=== PATIENT | male | born 1960 | race Caucasian/White ===

== ENCOUNTER 2016-07-25 12:28 | Emergency (ER) | payer MEDICARE, BC, MEDICAID ==
[2016-07-25 13:25] VITALS: BP 116/65
--- NOTE | 2016-07-25 13:36 | UC ---
Lower Extremity/Ankle HPI - HPI Summary HPI Summary: left foot swollen, bruising x 1 day no known injury pt. is quadriplegic - History of Current Complaint Chief Complaint: UCLowerExtremity Stated Complaint: LEFT FOOT COMPLAINT Time Seen by Provider: 07/25/16 13:11 Hx Obtained From: Family/Anesthesiology Medical Doctor Hx From Patient Unobtainable Due To: Other - pt. is non-verbal Onset/Duration: Gradual Onset, Lasting Days - 1, Still Present Severity Initially: Moderate Severity Currently: Moderate Aggravating Factor(s): Nothing Able to Bear Weight: No - quadriplegic - Allergies/Home Medications Allergies/Adverse Reactions: Allergies Allergy/AdvReac Type Severity Reaction Status Date / Time No Known Allergies Allergy Verified 07/25/16 13:09 Home Medications: Home Medications Phenytoin CAP(*) [Dilantin CAP(*)] 1 tab DAILY 07/25/16 [History Confirmed 07/25] PMH/Surg Hx/FS Hx/Imm Hx Endocrine History Of: Reports: Thyroid Disease - hypothyroid Denies: Diabetes Cardiovascular History Of: Denies: Hypertension, Congestive Heart Failure Respiratory History Of: Reports: Bronchitis - recent pneumonia GI/ History Of: Denies: Renal Disease Neurological History Of: Reports: Seizures - Surgical History Surgical History: Unable to Obtain/Confirm - Family History Known Family History: Negative: Hypertension, Diabetes - Social History Alcohol Use: None Substance Use Type: None Smoking Status (MU): Never Smoked Tobacco - Immunization History Most Recent Influenza Vaccination: UNK Most Recent Tetanus Shot: 11/02/15 Most Recent Pneumonia Vaccination: unk date, but has received previously per aide Review of Systems Constitutional: Negative Skin: Negative ENT: Negative All Other Systems Reviewed And Are Negative: Yes Physical Exam Triage Information Reviewed: Yes Completion Of Physical Exam Limited Due To: Other - quadriplegic , non-verbal , + CP Appearance: No Pain Distress Vital Signs: Initial Vital Signs Temp 96.2 F 07/25/16 13:09 Pulse 80 07/25/16 13:09 Resp 18 07/25/16 13:09 BP 116/65 07/25/16 13:09 Pulse Ox 99 07/25/16 13:09 Vital Signs Reviewed: Yes Eyes: Positive: Conjunctiva Clear ENT: Positive: Normal ENT inspection Neck exam: Normal Respiratory: Positive: Chest non-tender, Lungs clear, Normal breath sounds Cardiovascular: Positive: RRR, Pulses Normal Musculoskeletal: Positive: Other: - + foot: + swelling , + ecchymosis plantar surface Lower Extremity Course/Dx - Differential Dx/Diagnosis Provider Diagnoses: contusion left foot Discharge - Discharge Plan Condition: Stable Disposition: HOME Patient Education Materials: Foot Contusion (ED) Referrals: Vic Kirkland MD [Primary Care Provider] - 7 Days
--- NOTE | 2016-07-25 14:00 | RAD ---
Indication: 1 day LEFT foot swelling without known trauma. Mentally disabled wheelchair-bound. Comparison: January 02, 2013 Technique: AP, lateral, and oblique views RIGHT foot. REPORT AND IMPRESSION: Bone density is decreased throughout mildly limiting assessment for nondisplaced fracture. No cortical disruption or suspicious trabecular irregularity to suggest fracture. Negative for dislocation. Mild osteophytosis and joint space narrowing at the first metatarsal phalangeal joint. Soft tissue swelling most prominent over the dorsum of the forefoot. No conspicuous foreign body or subcutaneous emphysema.
== END 2016-07-25 14:20 | disposition home or self-care (01) ==
LOC: UCCORT 12:28
DX: S90.32XA Contusion of left foot, initial encounter (principal); X58.XXXA Exposure to other specified factors, initial encounter; Y93.9 Activity, unspecified; Y99.9 Unspecified external cause status; G82.50 Quadriplegia, unspecified; E03.9 Hypothyroidism, unspecified
CPT/HCPCS: 99212; G0463

== ENCOUNTER 2016-08-25 09:15 | Inpatient (IN) | payer MEDICARE, BC, MEDICAID ==
[2016-08-25] MEDS ORDERED: Ondansetron INJ* 2 MG/ML VIAL IV ONE (09:49)
[2016-08-25] MEDS: NS 0.9% 1000 ML* 3,000 ML IV ONE ×3 (10:01→10:03)
[2016-08-25 10:07] LABS: Hematocrit 48 % (42-52); Hemoglobin 15.8 g/dl (14.0-18.0); Mean Corpuscular HGB Conc 33 g/dl (31-36); Mean Corpuscular Hemoglobin 32 pg (27-31); Mean Corpuscular Volume 96 fL (80-94); Mean Platelet Volume 10 um3 (7.4-10.4); Red Blood Count 4.96 10^6/ul (4.0-5.4); Red Cell Distribution Width 15 % (10.5-15); White Blood Count 12.1 10^3/ul (3.5-10.8)
[2016-08-25 10:18] LABS: Add Diff/Slide Review? Slide Review Added; Comments Flag Yes
[2016-08-25 10:29] LABS: Albumin 3.3 g/dL (3.2-5.2); BUN/Creatinine Ratio 34.8 (8-20); C Reactive Protein 324.25 mg/L (< 5.00); Calcium 9.5 mg/dL (8.6-10.3); EGFR African American 86.9 (>60); EGFR Non-African American 67.6 (>60); Globulin 3.9 g/dL (2-4); Magnesium 2.5 mg/dL (1.9-2.7); Total Bilirubin 0.5 mg/dL (0.2-1.0); Total Protein 7.2 g/dL (6.4-8.9)
[2016-08-25 10:30] LABS: Potassium 4.9 mmol/L (3.5-5.0)
[2016-08-25 10:31] LABS: Troponin I 0.04 ng/mL (<0.04)
--- NOTE | 2016-08-25 10:52 | RAD ---
Indication: Vomiting and diarrhea. CT of the abdomen and pelvis was performed without oral or IV contrast administration. Coronal and sagittal reconstructed images were obtained. Lung bases demonstrate left lower lobe consolidation with left pleural effusion. Pneumonia is not totally excluded. Some atelectasis is noted in the lingula and right middle lobe as well. The heart demonstrates no pericardial effusion. Liver is normal in size. No focal lesions or intrahepatic duct dilatation is noted. The spleen is normal in size. A small amount of ascites is noted. Gallbladder demonstrates no calcified gallstones. No pericholecystic fluid or wall thickening is noted. The pancreas demonstrates no definite mass although some peripancreatic infiltration of fat is noted. The possibility of pancreatitis should be considered. No adrenal masses are noted. The kidneys demonstrate no hydronephrosis. Atherosclerotic aorta and inferior vena cava are unremarkable. The colon is filled with stool. Urinary bladder is unremarkable. The colon is filled with stool. No hernias are noted. The small bowel demonstrates moderate distention. There are collapsed loops of distal bowel noted. There is suggestion of a zone of transition in the mid abdomen just left of midline. Patient has had prior partial colectomy. No retroperitoneal adenopathy is noted. Colon is filled with stool. The urinary bladder is unremarkable. No hernias are noted. IMPRESSION: Likely left lower lobe pneumonia with left pleural effusion. Small amount of ascites is noted. Peripancreatic fluid is noted. The possibility of pancreatitis should be considered. Small bowel demonstrates moderate distention with suggestion of distal terminal ileum. There is suggestion of a transition point noted in the mid abdomen. This likely represents a small bowel obstruction.
[2016-08-25 11:03] LABS: Phenytoin 10.1 mcg/mL (10-20)
[2016-08-25] MEDS ORDERED: cefTRIAXone(*) 1 GM in NS 0.9% 50 ML* 50 ML IVPB ONE (11:04)
[2016-08-25] MEDS ORDERED: Azithromycin IV(*) 500 MG in NS 0.9% 250 ML* 250 ML IVPB ONE (11:05)
[2016-08-25 11:11] LABS: TSH (Thyroid Stimulating Horm) 3.55 mcIU/mL (0.34-5.60)
[2016-08-25] MEDS ORDERED: Acetaminophen SUPP* 650 MG SUPP PR PRN (11:26)
[2016-08-25] MEDS ORDERED: Ondansetron INJ* 2 MG/ML VIAL IV PRN (11:26)
[2016-08-25] MEDS ORDERED: cefTRIAXone(*) 1 GM ADVAN ONE (11:36)
[2016-08-25 11:44] LABS: Eosinophils % 1 % (0-6); Immature Granulocytes 16 % (0-9); Metamyelocytes % 1 % (0-2); Myelocytes % 1 % (0-1); Neutrophil % 49 % (38-83); RBC Morphology Normal (Normal)
[2016-08-25] MEDS ORDERED: LORazepam INJ* 2 MG/ML 1 ML VIAL IV PUSH ONE (11:45)
--- NOTE | 2016-08-25 11:54 | RAD ---
INDICATION: Altered mental status COMPARISON: Most recent comparison chest x-rays dated January 29, 2014. TECHNIQUE: Single AP portable view of the chest was obtained. FINDINGS: Image quality is compromised due to the relative inferiority of a portable chest x-ray. The well aerated lung volumes are hypoplastic which May simply be due to poor inspiratory effort. There is apparent elevation of the right hemidiaphragm with a air-filled loop of colon immediately beneath the diaphragm characteristic of a [place] bowel loop. There are dilated loops of air-filled small bowel measuring up to 3.8 cm in the left hemiabdomen. There is no definite free gas beneath either diaphragm. IMPRESSION: 1. Hypoplastic lung volumes may similar be the consequence of poor inspiratory effort. There is no definite acute cardiopulmonary disease on this very limited partially upright chest x-ray. 2. Air-filled loops of small bowel are dilated up to 3.8 cm in the left hemiabdomen.
[2016-08-25] MEDS ORDERED: Zosyn per Pharmacy* NOTE FOLLOW UP SCH (12:00)
--- NOTE | 2016-08-25 13:31 | ED ---
Mesfin Robert Alfonso, scribed for Abelardo Pike MD on 08/25/16 at 0954 . GI/ HPI - HPI Summary HPI Summary: Level 5 caveat due to Cerebral Palsy. This patient is a 56 year old male presenting from [facility] to [facility] for vomiting since last night. He was diagnosed with viral gastroenteritis 4 days ago, but his vomiting has been worst this morning prompting his intermediate aid to bring him to the ED. [facility] aid reports nausea. Sx aggravated and alleviated by nothing. Denies blood in vomit and melena. He has been on the BRAT diet, and has been able to hold down liquids until this morning. Development Geologist believes he vomited his medication today. The aid denies him taking abx recently or being on blood thinners. PMHx of seizures and Cerebral Palsy. NKDA. - History of Current Complaint Chief Complaint: EDNauseaVomitDiarrh Time Seen by Provider: 08/25/16 09:38 Stated Complaint: VOMITING Hx Obtained From: Family/Development Geologist - [facility] aid Hx From Patient Unobtainable Due To: Other - Cerebral Palsy Onset/Duration: Started Hours Ago - This morning, Worse Since Severity: Mild Current Severity: Mild Pain Intensity: 0 Associated Signs and Symptoms: Positive: Nausea, Vomiting, Other: - Negative blood in vomit. Negative: Black Tarry Stool Aggravating Factor(s): Nothing Alleviating Factor(s): Nothing - Allergy/Home Medications Allergies/Adverse Reactions: Allergies Allergy/AdvReac Type Severity Reaction Status Date / Time No Known Allergies Allergy Verified 07/25/16 13:09 PMH/Surg Hx/FS Hx/Imm Hx Endocrine/Hematology History: Reports: Hx Thyroid Disease - hypothyroid Denies: Hx Diabetes, Hx Systemic Lupus Erythematosus Cardiovascular History: Denies: Hx Congestive Heart Failure, Hx Hypertension GI History: Reports: Hx Gastroesophageal Reflux Disease, Other GI Disorders - anorexia, dehydration History: Denies: Hx Dialysis, Hx Renal Disease Musculoskeletal History: Denies: Hx Rheumatoid Arthritis Neurological History: Reports: Hx Developmental Delay, Hx Seizures - Cancer History Hx Chemotherapy: No Infectious Disease History: No Infectious Disease History: Denies: Hx Clostridium Difficile, Hx Hepatitis, Hx Human Immunodeficiency Virus (HIV), Hx of Known/Suspected MRSA, Hx Shingles, Hx Tuberculosis, Hx Known/ Suspected VRE, Hx Known/Suspected VRSA, History Other Infectious Disease, Traveled Outside the [place] in Last 30 Days - Family History Known Family History: Negative: Hypertension, Diabetes - Social History Lives: Intermediate - In [place] Alcohol Use: None Substance Use Type: Reports: None Smoking Status (MU): Never Smoked Tobacco Review of Systems - ROS Summary Review of Systems Summary: Level 5 caveat due to Cerebral Palsy. Positive: Vomiting, Nausea, Other - Negative blood in vomit and negative melena All Other Systems Reviewed And Are Negative: No Physical Exam - Summary Physical Exam Summary: Level 5 caveat due to Cerebral Palsy. Gen: Lethargic Skin: warm, color, dry Head: Dry oral mucosa Eyes: EOMI, JONELLE ENT: normal Neck: supple, nontender Resp: CTA, breath sounds present Cardio: Tachycardia Abd: No obvious tenderness to palpation Bowel: present Musc: Contractures in his legs Neuro: Response to voice Psych: affect/mood appropriate Triage Information Reviewed: Yes Vital Signs On Initial Exam: Initial Vitals Temp Pulse Resp BP Pulse Ox 97.3 F 125 20 80/59 94 08/25/16 09:27 08/25/16 09:27 08/25/16 09:27 08/25/16 09:27 08/25/16 09:27 Vital Signs Reviewed: Yes Diagnostics - Vital Signs Vital Signs Temp Pulse Resp BP Pulse Ox 08/25/16 09:30 97.3 F 127 20 73/58 94 08/25/16 09:27 97.3 F 125 20 80/59 94 - Laboratory Lab Results: Lab Results 08/25/16 08/25/16 08/25/16 Range/Units 09:43 09:43 09:43 WBC 12.1 H (3.5-10.8) 10^3/ul RBC 4.96 (4.0-5.4) 10^6/ul Hgb 15.8 (14.0-18.0) g/dl Hct 48 (42-52) % MCV 96 H (80-94) fL MCH 32 H (27-31) pg MCHC 33 (31-36) g/dl RDW 15 (10.5-15) % Plt Count 266 (150-450) 10^3/ul MPV 10 (7.4-10.4) um3 Immature Gran % (Auto) 16 H (0-9) % Neut % (Auto) 61.6 (38-83) % Lymph % (Auto) 9.5 L (25-47) % [place] % (Auto) 27.2 H (1-9) % Eos % (Auto) 0.5 (0-6) % Baso % (Auto) 1.2 (0-2) % Absolute Neuts (auto) 7.4 (1.5-7.7) 10^3/ul Absolute Lymphs (auto) 1.1 (1.0-4.8) 10^3/ul Absolute Monos (auto) 3.3 H (0-0.8) 10^3/ul Absolute Eos (auto) 0.1 (0-0.6) 10^3/ul Absolute Basos (auto) 0.2 (0-0.2) 10^3/ul Absolute Nucleated RBC 0.01 10^3/ul Neutrophils % 49 (38-83) % Band Neutrophils % 14 H (0-8) % Lymphocytes % 17 L (25-47) % Monocytes % 17 H (0-13) % Eosinophils % 1 (0-6) % Metamyelocytes % 1 (0-2) % Myelocytes % 1 (0-1) % Nucleated RBC % 0.1 Normal RBC Morphology Normal (Normal) INR (Anticoag Therapy) 1.31 H (0.89-1.11) APTT 31.4 (26.0-36.3) seconds Sodium 134 (133-145) mmol/L Potassium 4.9 (3.5-5.0) mmol/L Chloride 95 L (101-111) mmol/L Carbon Dioxide 26 (22-32) mmol/L Anion Gap 13 H (2-11) mmol/L BUN 39 H (6-24) mg/dL Creatinine 1.12 (0.67-1.17) mg/dL Est GFR ( Amer) 86.9 (>60) Est GFR (Non-Af Amer) 67.6 (>60) BUN/Creatinine Ratio 34.8 H (8-20) Glucose 104 H (70-100) mg/dL Lactic Acid (0.5-2.0) mmol/L Calcium 9.5 (8.6-10.3) mg/dL Magnesium 2.5 (1.9-2.7) mg/dL Total Bilirubin 0.50 (0.2-1.0) mg/dL AST 25 (13-39) U/L ALT 8 (7-52) U/L Alkaline Phosphatase 90 (34-104) U/L Total Creatine Kinase 236 H (10-223) U/L CK-MB (CK-2) 3.1 (0.6-6.3) ng/mL Troponin I 0.04 H* (<0.04) ng/mL C-Reactive Protein 324.25 H (< 5.00) mg/L B-Natriuretic Peptide ( - 100) pg/mL Total Protein 7.2 (6.4-8.9) g/dL Albumin 3.3 (3.2-5.2) g/dL Globulin 3.9 (2-4) g/dL Albumin/Globulin Ratio 0.8 L (1-3) Lipase 28 (11.0-82.0) U/L TSH 3.55 (0.34-5.60) mcIU/mL Phenytoin 10.1 (10-20) mcg/mL Valproic Acid 38.0 L (50-100) mcg/mL 08/25/16 08/25/16 Range/Units 09:43 09:43 WBC (3.5-10.8) 10^3/ul RBC (4.0-5.4) 10^6/ul Hgb (14.0-18.0) g/dl Hct (42-52) % MCV (80-94) fL MCH (27-31) pg MCHC (31-36) g/dl RDW (10.5-15) % Plt Count (150-450) 10^3/ul MPV (7.4-10.4) um3 Immature Gran % (Auto) (0-9) % Neut % (Auto) (38-83) % Lymph % (Auto) (25-47) % [place] % (Auto) (1-9) % Eos % (Auto) (0-6) % Baso % (Auto) (0-2) % Absolute Neuts (auto) (1.5-7.7) 10^3/ul Absolute Lymphs (auto) (1.0-4.8) 10^3/ul Absolute Monos (auto) (0-0.8) 10^3/ul Absolute Eos (auto) (0-0.6) 10^3/ul Absolute Basos (auto) (0-0.2) 10^3/ul Absolute Nucleated RBC 10^3/ul Neutrophils % (38-83) % Band Neutrophils % (0-8) % Lymphocytes % (25-47) % Monocytes % (0-13) % Eosinophils % (0-6) % Metamyelocytes % (0-2) % Myelocytes % (0-1) % Nucleated RBC % Normal RBC Morphology (Normal) INR (Anticoag Therapy) (0.89-1.11) APTT (26.0-36.3) seconds Sodium (133-145) mmol/L Potassium (3.5-5.0) mmol/L Chloride (101-111) mmol/L Carbon Dioxide (22-32) mmol/L Anion Gap (2-11) mmol/L BUN (6-24) mg/dL Creatinine (0.67-1.17) mg/dL Est GFR ( Amer) (>60) Est GFR (Non-Af Amer) (>60) BUN/Creatinine Ratio (8-20) Glucose (70-100) mg/dL Lactic Acid 1.2 (0.5-2.0) mmol/L Calcium (8.6-10.3) mg/dL Magnesium (1.9-2.7) mg/dL Total Bilirubin (0.2-1.0) mg/dL AST (13-39) U/L ALT (7-52) U/L Alkaline Phosphatase (34-104) U/L Total Creatine Kinase (10-223) U/L CK-MB (CK-2) (0.6-6.3) ng/mL Troponin I (<0.04) ng/mL C-Reactive Protein (< 5.00) mg/L B-Natriuretic Peptide 188 H ( - 100) pg/mL Total Protein (6.4-8.9) g/dL Albumin (3.2-5.2) g/dL Globulin (2-4) g/dL Albumin/Globulin Ratio (1-3) Lipase (11.0-82.0) U/L TSH (0.34-5.60) mcIU/mL Phenytoin (10-20) mcg/mL Valproic Acid (50-100) mcg/mL Result Diagrams: 08/25/16 09:43 08/25/16 09:43 Lab Statement: Any lab studies that have been ordered have been reviewed, and results considered in the medical decision making process. - CT CT A/P without contrast CT Interpretation: Positive (See Comments) - Likely left lower lobe pneumonia with left pleural effusion. Small amount of ascites is noted. CT Interpretation Completed By: Radiologist - EKG 1037 Cardiac Rate: Tachycardia EKG Rhythm: Sinus Tachycardia - BPM 105 ST Segment: Normal Ectopy: None GIGU Course/Dx - Course Course Of Treatment: ADMIT HOSPITALIST TO ICU STABLE. - Diagnoses Provider Diagnoses: SBO (small bowel obstruction), Pneumonia, Hypotension - Physician Notifications Discussed Care Of Patient With: Biju Quezada Time Discussed With Above Provider: 11:01 - Discussed with Dr. Quezada ( Hospitalist) who agrees to admit the patient. - Critical Care Time Critical Care Time: 30-74 min Discharge - Discharge Plan Condition: Stable Disposition: ADMITTED TO [facility] The documentation as recorded by the Mesfin michelle Alfonso accurately reflects the service I personally performed and the decisions made by me, Abelardo Pike MD.
[2016-08-25] MEDS: NS 0.9% 1000 ML* 1,000 ML IV SCH ×2 (13:55→23:43)
--- NOTE | 2016-08-25 14:11 | RAD ---
Indication: NG tube placement. Single frontal view of the chest performed at 1248 hours was reviewed. Comparison is made with previous exam dated August 25, 2016. NG tube is in the left lung in the left bronchus. Bibasilar atelectasis is noted. IMPRESSION: NG TUBE IS IN THE LEFT BRONCHUS.
--- NOTE | 2016-08-25 14:14 | HP ---
CC: Vic Kirkland MD; Florentin Alberts MD * HISTORY AND PHYSICAL: DATE OF ADMISSION: 08/25/16 PRIMARY CARE PROVIDER: Vic Kirkland MD. ATTENDING PHYSICIAN WHILE IN THE HOSPITAL: Dr. Biju Quezada * (report dictated by Sanjay Chappell NP). CONSULTING SURGEON: Florentin Alberts MD. CHIEF COMPLAINT: 1. Fever. 2. Nausea and vomiting. HISTORY OF PRESENT ILLNESS: I would like to preface the report by saying that the patient has a significant amount of intellectual developmental delay, he is really unable to give any history, he is nonverbal. He comes in today, the caregiver that is with him stating that on they noticed he had a fever. He was nauseous, he was vomiting, he went to the Primary, they felt that he had viral gastroenteritis. He was put on a BRAT diet. He was hydrated and he did well throughout on Thursday and the weekend; however, Thursday night he started vomiting again. It is unknown when his last bowel movement was, the caregiver is trying to confirm this. He started vomiting more. He was more lethargic last night and into today. He did not have any more fevers as far as I know, but they were concerned because the vomiting was not getting any better , so he came into the hospital. There was no reports of recent cough. No reports of abdominal discomfort, and again it is unknown when his last bowel movement was. The patient came into the ER, it was found that he had a white count and a low platelet count. He did have pneumonia on CT of the abdomen, in the base there, and also appeared that he had a small bowel obstruction. So, because of these we were asked to evaluate for admission. PAST MEDICAL HISTORY: 1. He has a history of quadriplegia. 2. Seizures. 3. Hypothyroidism. 4. GERD. 5. Constipation. PAST SURGICAL HISTORY: It is unknown if he has had surgeries, but I do know, on my exam, he does have a midline abdominal incision. It is unknown what he actually had done. ALLERGIES TO MEDICATIONS: No known drug allergies. HOME MEDICATIONS: According to the list that was provided, includes: 1. Senna 2 tablets at bedtime as needed. 2. Dilantin 200 mg at bedtime. 3. Depakote 1000 mg p.o. t.i.d. 4. Tylenol 650 mg p.o. every 6 hours as needed. 5. Dulcolax 10 mg [place] daily as needed. 6. Milk of mag 30 cc p.o. b.i.d. as needed. 7. Diastat 20 mg [place] daily as needed. 8. Zofran 4 mg p.o. ever 6 hours as needed. 9. Tylenol suppository 650 mg every 4 hours as needed. 10. Robitussin 5 cc p.o. every 6 hours as needed. 11. Debrox 3 drops both ears b.i.d. as needed. 12. Imodium 2 mg p.o. every 4 hours as needed. 13. Reglan 10 mg p.o. four times a day. 14. Pepcid 20 mg p.o. daily. 15. Artificial tears 1 drop both eyes b.i.d. 16. MiraLAX 17 g p.o. daily. 17. Multivitamin 1 tablet daily. 18. Synthroid 100 mcg daily. 19. Lamictal 100 mg p.o. b.i.d. FAMILY HISTORY: Unable to be obtained. SOCIAL HISTORY: Unable to be obtained. REVIEW OF SYSTEMS: Unable to be obtained because of the patient's underlying intellectual developmental delay. PHYSICAL EXAMINATION GENERAL: At this time, Mr. Urbina is a 56-year-old male patient. He is sitting on the ER stretcher. He does not appear to be in any acute distress. VITAL SIGNS: Initially, blood pressure of 80/59, with a pulse of 125, respirations 20, O2 saturation 94%, temperature 97.3. Blood pressure now is 102 /62 with a pulse of 105. HEENT: Head: Atraumatic. Eyes: Sclerae nonicteric and not pale. Pupils are reactive to light. Throat: Oral mucosa appears to be dry. No oropharyngeal erythema. NECK: Supple. LUNGS: Clear to auscultation. HEART: Sounds S1 and S2. Regular rate and rhythm. He is tachycardic. ABDOMEN: Mildly distended. It was nontender on exam. Bowel sounds hypoactive. EXTREMITIES: Again, he is unable to move the lower extremities or upper extremities. He is actually contracted currently. NEUROLOGIC: He is alert to himself only, he has no gross focal obvious deficits. He is tracking me on exam and following my movements, but again no gross focal deficits. SKIN: His skin today was intact. LABORATORY DATA/DIAGNOSTIC STUDIES: His labs today revealed a WBC of 12.1, RBC of 4.96, hemoglobin of 15.8, hematocrit of 48, platelet count of 266. The INR was 1.31, the PTT was 31.4. The sodium was 134, potassium 4.9, chloride 95 , bicarbonate of 26, BUN 39, creatinine 1.12, glucose 104, lactate 1.2, calcium 9.5, magnesium 2.5, total bilirubin 0.5, AST 25, ALT 8, alkaline phosphatase 90 , CK 236, CK-MB 3.1, troponin 0.04. CRP at 324. His albumin is 3.3, lipase 28 , TSH is 3.55. His valproic acid was 38. Phenytoin was 10.1. He did have an abdomen and pelvic CT obtained today, the impression read, likely left lower lobe pneumonia with left pleural effusion, small amount of ascites noted, pancreatic fluid is noted, the possibility of pancreatitis should be considered. Small bowel demonstrates moderate distention with suggestion of distal terminal ileum. There is a suggestion of a transition point in the mid abdomen, this likely represents a small bowel obstruction. He did have an EKG obtained today as well, which revealed a sinus tachycardia with a rate of 105, minimal ST elevation in II, III, and aVF and V5 and V6. I reviewed the previous EKG. The elevation appears to be similar, II, III, and aVF and also in V6, V5 is new. Old medical records were reviewed. ASSESSMENT AND PLAN: Mr. Urbina is a 56-year-old male patient coming into the ER today with complaints of vomiting, fever, and lethargy. On evaluation found to have an SBO, possible pneumonia. He will be admitted under inpatient status in the ICU for: 1. Small bowel obstruction: At this point, I did touch base with Surgery. I am going to go ahead and hydrate the patient, try to place an NG tube if possible. Surgery may need to do this placement to low wall suction, it appears that he has had abdominal surgeries in the past and we will repeat the x-rays in the morning and hopefully we can get this over with conservative management. He will be n.p.o. While he is n.p.o., I have ordered Protonix. 2. Pneumonia: At this point I will put him on Zosyn and azithromycin. We will get blood cultures and Legionella and Strep pneumoniae antigens. 3. Seizures: I converted his antiepileptics to IV form. 4. Hypothyroidism: We will continue his Synthroid on IV. 5. Elevated troponins, probably demand ischemia secondary to his acute illness. We will trend these. 6. Code status: Full code. 7. Fluids, electrolyte, nutrition: He is n.p.o. He has normal saline at 125 an hour. TIME SPENT: Time spent on the admission was approximately 60 minutes, greater than half the time was spent [id number] with the patient obtaining my history and physical, the other half of the time spent going over the plan of care with the patient and implementing plan of care. I did discuss the plan of care with my attending, Dr. Quezada, he is in agreement. SANJAY CHAPPELL, LOW [id number]/CPS #: [id number] IRMA
[2016-08-25] MEDS: Heparin VIAL(*) 5000 UNITS/ML VIAL (FIVE THOUSAND) SUBCUT SCH ×2 (14:53→21:57)
[2016-08-25] MEDS: Pantoprazole IV* 40 MG IV SCH (14:53)
--- NOTE | 2016-08-25 15:42 | RAD ---
Indication: Nasogastric tube placement. Developmentally disabled. Comparison: 1248 hours August 25, 2016 Technique: Upright AP 1515 hours Report: Nasogastric tube passes to the stomach with the tip at the level of the gastric body. RIGHT upper extremity PICC tip at level of superior vena cava directed central. Low lung volumes with subsegmental atelectasis. Cardiomegaly. Unremarkable central pulmonary vasculature. LEFT upper quadrant surgical clips. IMPRESSION: Nasogastric tube passes to the stomach with the tip at the level of the gastric body.
--- NOTE | 2016-08-25 16:26 | RAD ---
HISTORY: NG tube placement COMPARISONS: August 25, 2016 at 2:06 PM VIEWS:1: Single frontal portable view of the chest at 3:45 PM FINDINGS: LINES AND TUBES: A right-sided PICC line is noted with the tip overlying the superior vena cava. A gastric tube is noted. The tip is in the left upper quadrant in a prepyloric position. CARDIOMEDIASTINAL SILHOUETTE: The cardiomediastinal silhouette is stable. PLEURA: The costophrenic angles are sharp. No pleural abnormalities are noted. LUNG PARENCHYMA: The lung volumes are low. There is linear opacification of left lung base ABDOMEN: The upper abdomen is clear. There is no subphrenic gas. BONES AND SOFT TISSUES: No bone or soft tissue abnormalities are noted. IMPRESSION: 1. LINES AND TUBES ABOVE. 2. LOW LUNG VOLUMES WITH LINEAR ATELECTASIS OF THE LEFT LUNG BASE
--- NOTE | 2016-08-25 17:45 | CONS ---
CC: [facility]; Vic Kirkland MD, [facility] * CONSULTATION REPORT: DATE OF CONSULTATION: 08/25/16 REFERRING PROVIDER: Sanjay Chappell NP. REASON FOR CONSULTATION: Possible bowel obstruction with nausea and vomiting. HISTORY OF PRESENT ILLNESS: Mr. Magdaleno Urbina is a 56-year-old gentleman, who is a resident at the [facility] who has significant physical and intellectual development and is not able to give any history and is nonverbal. He comes in today with his caregiver stating that on he noted he had a low- grade fever, was nauseated, had some vomiting, and they felt he had gastroenteritis. He kept liquids down over the next several days and was hydrated; however, he started vomiting again on Thursday. It is not certain if he has become distended. He does have some problems with chronic constipation. He was noted to be more lethargic today, brought to the emergency room and although was afebrile, he had a mild elevation in his white blood cell count and was dehydrated and had relatively low blood pressure. His workup included a chest x-ray, which is essentially unremarkable; however, CT scan of his chest, abdomen, and pelvis showed worrisome findings for a left lower lobe pneumonia with a small pleural effusion, a small amount of ascites, some distended small bowel with no clear-cut transition point to my view; however, there was quite a large amount of stool and gas within the distended colon. No evidence of bowel wall thickening or abscess, although an oral contrast was not given. The patient is being admitted for treatment of his pneumonia as well as a possible bowel obstruction and surgical consultation was obtained. The following history is obtained, all from the patient's chart and his prior provider here in the hospital as he is nonverbal and there is no family members present. PAST MEDICAL HISTORY: 1. Quadriplegia. 2. Seizure disorder. 3. Hypothyroidism. 4. Intellectual developmental delay. 5. Gastroesophageal reflux disease. 6. Constipation. 7. History of a colon resection, reason and type unknown. PAST SURGICAL HISTORY: Apparent colon resection per the CT scan. These records are not available. MEDICATIONS: Include: 1. Senna. 2. Dilantin. 3. Depakote. 4. Tylenol. 5. Dulcolax. 6. Milk of magnesia. 7. Diastat. 8. Zofran. 9. Tylenol suppository. 10. Robitussin. 11. Debrox ear drops. 12. Imodium. 13. Reglan. 14. Pepcid. 15. Artificial Tears. 16. MiraLAX. 17. Synthroid. 18. Lamictal. ALLERGIES: He has no known drug allergies. FAMILY HISTORY: Not able to be obtained. SOCIAL HISTORY: Unable to be obtained. REVIEW OF SYSTEMS: Unable to be obtained. PHYSICAL EXAMINATION: GENERAL: Mr. Urbina is a 56-year-old gentleman, he is sitting up in bed. He is nonverbal, although he is awake his eyes are somewhat closed. He appears to be in no apparent distress or in any acute discomfort. VITAL SIGNS: Temperature 97.5, pulse 109, blood pressure 85/56, respirations 16. LUNGS: With diminished breath sounds throughout. No rhonchi or wheezing. HEART: Regular rate and rhythm and rapid. ABDOMEN: Soft but slightly distended. He has a well-healed midline incision from the xiphoid down to the pubis. I appreciate no hernias. There is no evidence of tenderness upon firm palpation in all 4 quadrants. He has no guarding, rigidity, nor does he express discomfort or resist from allowing me to examine his abdomen. LABORATORY VALUES: Include white blood cell count of 12.1. BUN and creatinine of 39 and 1.2. He had a lactic acid of 1.2. Lipase is normal. Liver transaminase and total bilirubin are normal. He had a slight elevation in his troponin. I did review the CAT scan of the abdomen and pelvis. There is some moderately distended small bowel, which appears to be proximal. There is no oral contrast given. There is difficulty to determine if there is any distally collapsed small bowel. He seems to have a very redundant colon, it is difficult to follow its track, but it seems to have a largest amount of air as well as large amount of stool throughout. There are some clips in the left mid abdomen, which appear to be in proximity to the colon, and may have been related to his previous surgery. There is no small bowel wall thickening or significant abdominal fluid. Also of note, which is NOT mentioned in the CT scan report is slight evidence of perhaps a "mesenteric whirl sign" which may be worrisome for internal volvulus and/or twisting of the mesentery, although this does not appear to be related to a very discrete area of bowel with an obstructive pattern, i.e., transition zone, wall thickening or other acute findings. IMPRESSION/PLAN: 1. Possible bowel obstruction. According to the nurses here in the intensive care unit, after he has been admitted he has been passing large amounts of foul smelling flatus, although he has not had a bowel movement. An NG tube has now been inserted. There has been no nausea or vomiting. His abdominal examination today is quite benign as per above. At this point, I would recommend we continue observation for now. A nasogastric tube is inserted. We will see how much this drains over the next 24 hours. He has no acute surgical abdomen indications for intervention. There certainly is concern on the CT scan of the mesentery; however, this can be seen incidentally and in light of the fact that he also is going to be treated for pneumonia with IV antibiotics, we would certainly want to continue to resuscitate him, as he appears to be somewhat hypovolemic and optimize his status should surgery be indicated. 2. Pneumonia. He will be started on antibiotics. 3. We will continue with NG tube and Palm catheter placement to watch hydration status. 4. Laboratory values will be repeated in the morning. 5. We will follow him closely with you, but no plans for surgical intervention at this point. [id number]/[facility] #: [id number] IRMA
--- NOTE | 2016-08-25 19:13 | ECHO ---
Patient: CLAYTON PENA [facility] Rec#: [id number] : 1960 Date: 08/25/2016 Age: 56y Height: 160.02 cm / 63.0 in Weight: 59.42 kg / 131.0 lbs Sex: M BSA: 1.62 Room#: [facility] Admit Date#: 08/25/2016 Type: Inpatient Referring: Sanjay Chappell NP Reading: Shane Schmitt MD Pediatrician: Cathryn Mittal RDCS CC: Vic Kirkland MD Transthoracic Echocardiogram Indication: Hypotension BP: 73/58 HR: 104 Rhythm: Tachycardia Indications Hypotension Findings History: Cerebral Palsy, quadriplegia, seizure, hypothyroidism, GERD. Technical Comments: The study quality is fair. Completed at 1540. Left Ventricle: The left ventricular chamber size is decreased. Mild concentric left ventricular hypertrophy is observed. Global left ventricular wall motion and contractility are within normal limits. The left ventricle appears hyperdynamic. The estimated ejection fraction is greater than 65%. Abnormal left ventricular diastolic function is observed. There is an E to A reversal in the mitral valve flow pattern suggestive of diastolic dysfunction. Left Atrium: The left atrial chamber size is normal. Right Ventricle: Moderator Band present. The right ventricular cavity size is normal. The right ventricle wall thickness is mildly increased. The right ventricular global systolic function is hyperdynamic. Right Atrium: The right atrial cavity size is normal. Aortic Valve: The aortic valve is trileaflet. The aortic valve leaflets are mildly thickened. There is no evidence of aortic regurgitation. There is no evidence of aortic stenosis. Mitral Valve: The mitral valve leaflets are mildly thickened. There is a trace of mitral regurgitation. There is no evidence of mitral stenosis. Tricuspid Valve: The tricuspid valve leaflets are normal. There is mild tricuspid regurgitation. There is evidence of mild pulmonary hypertension. There is no tricuspid stenosis. Pulmonic Valve: The pulmonic valve appears normal. There is a trace pulmonic regurgitation. There is no pulmonic stenosis. Pericardium: A pericardial fat pad is visualized. Aorta: There is no dilatation of the ascending aorta. There is no dilatation of the aortic arch. There is mild dilatation of the aortic root. Pulmonary Artery: The main pulmonary artery appears normal. Venous: The venous system is not well visualized. Conclusions Global left ventricular wall motion and contractility are within normal limits. Mild concentric left ventricular hypertrophy is observed. The estimated ejection fraction is greater than 65%. There is an E to A reversal in the mitral valve flow pattern suggestive of diastolic dysfunction. The right ventricular global systolic function is hyperdynamic. There is no evidence of aortic regurgitation. There is a trace of mitral regurgitation. There is mild tricuspid regurgitation. There is evidence of mild pulmonary hypertension. A pericardial fat pad is visualized. There is no dilatation of the ascending aorta. Measurements Name Value Normal Range RVIDd (AP) 2D 1.8 cm (0.9 - 2.6) RVDdMajor (2D) 3 cm (2.2 - 4.4) RVAW (2D) 0.66 cm (0.2 - 0.5) RAd ISD 4CH 4.2 cm (3.4 - 4.9) RA (A4C)W 3 cm (2.9 - 4.6) IVSd (2D) 1.3 cm (0.6 - 1) LVPWd (2D) 1.1 cm (0.6 - 1) LVIDd (2D) 2.1 cm (3.6 - 5.4) LVIDs (2D) 1.8 cm - LV FS (2D) 13 % (25 - 45) Aortic Annulus 1.9 cm (1.4 - 2.6) Ao root diameter (2D) 3.6 cm (2.1 - 3.5) Ascending Ao 3.3 cm (2.1 - 3.4) Aortic arch 3.1 cm (1.8 - 3.4) LA dimension (AP) 2D 2.5 cm (2.3 - 3.8) LAd ISD 4CH 5.1 cm (2.9 - 5.3) LA ISD 4CH W 4 cm (2.5 - 4.5) Name Value Normal Range LA ESV SP 4CH (A/L) 41 ml - LA ESV SP 2CH (A/L) 28 ml - LA ESV BP (A/L) 36 ml - LA ESV BP (A/L) index 21.96 ml/m2 - LA ESV SP 4CH (MOD) 39 ml - LA ESV SP 2CH (MOD) 26 ml - Name Value Normal Range MV E-wave Vmax 0.69 m/sec - MV deceleration time 109.63 msec - MV A-wave Vmax 1.07 m/sec - MV E:A ratio 0.64 ratio - LV septal e' Vmax 0.06 m/sec - LV lateral e' Vmax 0.07 m/sec - LV E:e' septal ratio 11.5 ratio - LV E:e' lateral ratio 9.86 ratio - Name Value Normal Range AV Vmax 2.67 m/sec - AV VTI 40.7 cm - AV peak gradient 28.58 mmHg - AV mean gradient 13.03 mmHg - LVOT Vmax 2.34 m/sec - LVOT VTI 34.01 cm - LVOT peak gradient 21.83 mmHg - LVOT mean gradient 7.95 mmHg - MERVAT Vmax 0.54 m/sec - Name Value Normal Range TR Vmax 2.7 m/sec - TR peak gradient 29 mmHg - RAP 8 mmHg - RVSP 37 mmHg - Name Value Normal Range PV Vmax 1.2 m/sec - PV peak gradient 5.66 mmHg -
[2016-08-25] MEDS: LAMOTRIGINE 50 MG PO SCH (20:49)
[2016-08-25] MEDS ORDERED: PHENYTOIN IVPB SCH ×2 (21:00→21:44)
[2016-08-25] MEDS ORDERED: NS 0.9% IVPB SCH ×2 (21:00→21:44)
[2016-08-26 01:49] LABS: Urine Bilirubin Negative (Negative); Urine Glucose Negative (Negative); Urine Nitrite Negative (Negative)
[2016-08-26] MEDS: Heparin VIAL(*) 5000 UNITS/ML VIAL (FIVE THOUSAND) SUBCUT SCH ×3 (05:32→22:43)
[2016-08-26] MEDS: Levothyroxine INJ* 100 MCG/5 ML VIAL IV SCH (05:32)
[2016-08-26 05:57] LABS: Hematocrit 31 % (42-52); Hemoglobin 10.3 g/dl (14.0-18.0); Mean Corpuscular HGB Conc 33 g/dl (31-36); Mean Corpuscular Hemoglobin 32 pg (27-31); Mean Corpuscular Volume 97 fL (80-94); Mean Platelet Volume 8 um3 (7.4-10.4); Red Blood Count 3.18 10^6/ul (4.0-5.4); Red Cell Distribution Width 15 % (10.5-15); White Blood Count 7.8 10^3/ul (3.5-10.8)
[2016-08-26 06:08] LABS: BUN/Creatinine Ratio 40.8 (8-20); Calcium 7.5 mg/dL (8.6-10.3); EGFR African American 225.6 (>60); EGFR Non-African American 175.4 (>60); Potassium 3.2 mmol/L (3.5-5.0)
--- NOTE | 2016-08-26 07:45 | PN ---
Progress Note - Progress Note SOAP: Subjective: Nurses report no flatus or BM overnight--he had a large amount of flatus yesterday per nursing staff. Appears comfortable-awake and non-verbal NGT in place Objective: Temp Pulse Resp BP Pulse Ox 98.4 F 101 15 95/60 93 08/26/16 04:00 08/26/16 06:00 08/26/16 06:00 08/26/16 06:00 08/26/16 06:00 Intake & Output 08/24/16 08/25/16 08/26/16 08/27/16 06:59 06:59 06:59 06:59 Intake Total 5658 Output Total 350 Balance 5308 Weight 149 lb 7.574 oz Intake: IV Fluids 4980 NS (0.9%) 1366 NS + ABX 564 IVPB 678 ABX - ZOSYN 203 Dilantin 107 NS + ABX 254 Valproic Acid 114 Oral 0 Output: NG Tube Drainage Amount 100 Urine 0 Straight Cath 250 Other: Estimated Void Large # Voids 1 PEX: Appears comfortable Abd is soft and non-distended. There is no pain or guarding on deep palpation. Bowel sounds are present and are slightly hyperactive but not high pitched or tinkling. Laboratory Last Values WBC 7.8 10^3/ul (3.5-10.8) 08/26/16 05:32 RBC 3.18 10^6/ul (4.0-5.4) L 08/26/16 05:32 Hgb 10.3 g/dl (14.0-18.0) L 08/26/16 05:32 Hct 31 % (42-52) L 08/26/16 05:32 MCV 97 fL (80-94) H 08/26/16 05:32 MCH 32 pg (27-31) H 08/26/16 05:32 MCHC 33 g/dl (31-36) 08/26/16 05:32 RDW 15 % (10.5-15) 08/26/16 05:32 Plt Count 142 10^3/ul (150-450) L 08/26/16 05:32 MPV 8 um3 (7.4-10.4) 08/26/16 05:32 Immature Gran % (Auto) 16 % (0-9) H 08/25/16 09:43 Neut % (Auto) 66.4 % (38-83) 08/26/16 05:32 Lymph % (Auto) 13.2 % (25-47) L 08/26/16 05:32 Weber % (Auto) 18.3 % (1-9) H 08/26/16 05:32 Eos % (Auto) 1.8 % (0-6) 08/26/16 05:32 Baso % (Auto) 0.3 % (0-2) 08/26/16 05:32 Absolute Neuts (auto) 5.2 10^3/ul (1.5-7.7) 08/26/16 05:32 Absolute Lymphs (auto) 1.0 10^3/ul (1.0-4.8) 08/26/16 05:32 Absolute Monos (auto) 1.4 10^3/ul (0-0.8) H 08/26/16 05:32 Absolute Eos (auto) 0.1 10^3/ul (0-0.6) 08/26/16 05:32 Absolute Basos (auto) 0 10^3/ul (0-0.2) 08/26/16 05:32 Absolute Nucleated RBC 0 10^3/ul 08/26/16 05:32 Neutrophils % 49 % (38-83) 08/25/16 09:43 Band Neutrophils % 14 % (0-8) H 08/25/16 09:43 Lymphocytes % 17 % (25-47) L 08/25/16 09:43 Monocytes % 17 % (0-13) H 08/25/16 09:43 Eosinophils % 1 % (0-6) 08/25/16 09:43 Metamyelocytes % 1 % (0-2) 08/25/16 09:43 Myelocytes % 1 % (0-1) 08/25/16 09:43 Nucleated RBC % 0 08/26/16 05:32 Normal RBC Morphology Normal (Normal) 08/25/16 09:43 INR (Anticoag Therapy) 1.31 (0.89-1.11) H 08/25/16 09:43 APTT 31.4 seconds (26.0-36.3) 08/25/16 09:43 Sodium 141 mmol/L (133-145) 08/26/16 05:32 Potassium 3.2 mmol/L (3.5-5.0) L D 08/26/16 05:32 Chloride 110 mmol/L (101-111) 08/26/16 05:32 Carbon Dioxide 24 mmol/L (22-32) 08/26/16 05:32 Anion Gap 7 mmol/L (2-11) 08/26/16 05:32 BUN 20 mg/dL (6-24) 08/26/16 05:32 Creatinine 0.49 mg/dL (0.67-1.17) L 08/26/16 05:32 Est GFR ( Amer) 225.6 (>60) 08/26/16 05:32 Est GFR (Non-Af Amer) 175.4 (>60) 08/26/16 05:32 BUN/Creatinine Ratio 40.8 (8-20) H 08/26/16 05:32 Glucose 77 mg/dL (70-100) 08/26/16 05:32 Lactic Acid 1.2 mmol/L (0.5-2.0) 08/25/16 09:43 Calcium 7.5 mg/dL (8.6-10.3) L 08/26/16 05:32 Magnesium 2.5 mg/dL (1.9-2.7) 08/25/16 09:43 Total Bilirubin 0.50 mg/dL (0.2-1.0) 08/25/16 09:43 AST 25 U/L (13-39) 08/25/16 09:43 ALT 8 U/L (7-52) 08/25/16 09:43 Alkaline Phosphatase 90 U/L (34-104) 08/25/16 09:43 Total Creatine Kinase 236 U/L (10-223) H 08/25/16 09:43 CK-MB (CK-2) 3.1 ng/mL (0.6-6.3) 08/25/16 09:43 Troponin I 0.03 ng/mL (<0.04) 08/25/16 18:20 C-Reactive Protein 324.25 mg/L (< 5.00) H 08/25/16 09:43 B-Natriuretic Peptide 188 pg/mL (-100) H 08/25/16 09:43 Total Protein 7.2 g/dL (6.4-8.9) 08/25/16 09:43 Albumin 3.3 g/dL (3.2-5.2) 08/25/16 09:43 Globulin 3.9 g/dL (2-4) 08/25/16 09:43 Albumin/Globulin Ratio 0.8 (1-3) L 08/25/16 09:43 Lipase 28 U/L (11.0-82.0) 08/25/16 09:43 TSH 3.55 mcIU/mL (0.34-5.60) 08/25/16 09:43 Urine Color Yellow 08/26/16 01:29 Urine Appearance Clear 08/26/16 01:29 Urine pH 5.0 (5-9) 08/26/16 01:29 Ur Specific Ola 1.032 (1.010-1.030) H 08/26/16 01:29 Urine Protein Negative (Negative) 08/26/16 01:29 Urine Ketones 1+ (Negative) H 08/26/16 01:29 Urine Blood Negative (Negative) 08/26/16 01:29 Urine Nitrate Negative (Negative) 08/26/16 01:29 Urine Bilirubin Negative (Negative) 08/26/16 01:29 Urine Urobilinogen Negative (Negative) 08/26/16 01:29 Ur Leukocyte Esterase Negative (Negative) 08/26/16 01:29 Urine Glucose Negative (Negative) 08/26/16 01:29 Phenytoin 10.1 mcg/mL (10-20) 08/25/16 09:43 Valproic Acid 38.0 mcg/mL (50-100) L 08/25/16 09:43 AXR pending Assessment: Pneumonia SBO v ileus--little NGT output since insertion and was passing flatus yesterday. Exam is unremarkable. Normal WBC and improving renal function with hydration Plan: I'm not certain he has an adhesive SBO as this could be ileus secondary to pneumonia. There has been little NGT output and exam as per above goes against SBO Check AXR and follow - NGT could probably be removed today Continue IV anbx
[2016-08-26] MEDS: NS 0.9% 1000 ML* 1,000 ML IV SCH (08:13)
--- NOTE | 2016-08-26 08:39 | PN ---
Subjective Date of Service: 08/26/16 Interval History: Pt does not answer any of my questions. Per nursing no issues at this time. Objective Active Medications: Acetaminophen (Tylenol Supp*) [address] Q4H PRN PRN Reason: FEVER/PAIN Heparin Sodium (Porcine) (Heparin Vial(*)) 5,000 units SUBCUT Q8HR [facility] Last Admin: 08/26/16 05:32 Dose: 5,000 units Heparin Sodium (Porcine) (Heparin Flush Picc/Ml/Cvc(*)) 0 ml IV FLUSH 0600, 1800 [facility] PRN Reason: Protocol Last Admin: 08/26/16 04:36 Dose: Not Given Sodium Chloride (Ns 0.9% 1000 Ml*) 1,000 mls @ 125 mls/hr IV PER RATE [facility] Last Admin: 08/26/16 08:13 Dose: 125 mls/hr Azithromycin 500 mg/ Sodium (Chloride) 250 mls @ 250 mls/hr IVPB Q24H [place] Piperacillin Sod/Tazobactam (Sod 3.375 gm/ Sodium Chloride) 100 mls @ 25 mls/ hr IVPB Q8H [facility] Last Admin: 08/26/16 08:13 Dose: 25 mls/hr Valproic Acid 1,000 mg/ Sodium (Chloride) 110 mls @ 210 mls/hr IVPB Q8HR [facility] Last Admin: 08/26/16 05:32 Dose: 210 mls/hr Phenytoin Sodium 200 mg/ (Sodium Chloride) 104 mls @ 400 mls/hr IVPB BEDTIME [place] Lamotrigine (Lamictal Odt (Nf)) 100 mg PO BID [facility] PRN Reason: Protocol Last Admin: 08/25/16 20:49 Dose: 100 mg Levothyroxine Sodium (Synthroid Inj*) 50 mcg IV 0600 [facility] Last Admin: 08/26/16 05:32 Dose: 50 mcg Ondansetron HCl (Zofran Inj*) 4 mg IV Q6H PRN PRN Reason: NAUSEA Pantoprazole Sodium (Protonix Iv*) 40 mg IV Q24H [facility] Last Admin: 08/25/16 14:53 Dose: 40 mg Pharmacy Consult (Zosyn Per Pharmacy*) 1 note FOLLOW UP .ZOSYN PER PHARMACY [facility] Vital Signs 08/25/16 08/25/16 08/25/16 11:30 12:00 12:28 Temperature Pulse Rate 107 105 Respiratory 22 14 20 Rate Blood Pressure 102/62 105/65 (mmHg) O2 Sat by Pulse 99 98 Oximetry 08/25/16 08/25/16 08/25/16 12:30 12:31 12:56 Temperature 98.2 F 97.5 F Pulse Rate 107 110 109 Respiratory 16 16 19 Rate Blood Pressure 95/67 95/67 85/56 (mmHg) O2 Sat by Pulse 96 93 Oximetry 08/25/16 08/25/16 08/25/16 13:00 13:12 13:15 Temperature Pulse Rate 108 112 113 Respiratory 16 16 21 Rate Blood Pressure 85/56 115/57 100/74 (mmHg) O2 Sat by Pulse 94 90 91 Oximetry 08/25/16 08/25/16 08/25/16 13:30 13:45 14:00 Temperature Pulse Rate 112 109 107 Respiratory 18 19 16 Rate Blood Pressure 102/67 88/55 91/69 (mmHg) O2 Sat by Pulse 96 95 98 Oximetry 08/25/16 08/25/16 08/25/16 14:15 14:30 14:45 Temperature Pulse Rate 107 104 102 Respiratory 22 16 15 Rate Blood Pressure 94/68 100/69 95/66 (mmHg) O2 Sat by Pulse 96 97 98 Oximetry 08/25/16 08/25/16 08/25/16 15:00 15:15 15:30 Temperature Pulse Rate 103 109 104 Respiratory 15 13 17 Rate Blood Pressure 93/57 91/61 94/64 (mmHg) O2 Sat by Pulse 98 91 91 Oximetry 08/25/16 08/25/16 08/25/16 15:45 16:00 16:15 Temperature 97.1 F Pulse Rate 101 101 103 Respiratory 16 14 15 Rate Blood Pressure 82/60 102/57 98/59 (mmHg) O2 Sat by Pulse 89 95 93 Oximetry 08/25/16 08/25/16 08/25/16 16:30 16:45 17:00 Temperature Pulse Rate 100 Respiratory 14 15 15 Rate Blood Pressure 83/64 93/58 85/58 (mmHg) O2 Sat by Pulse 91 Oximetry 08/25/16 08/25/16 08/25/16 17:15 17:30 17:45 Temperature Pulse Rate 93 Respiratory 16 18 17 Rate Blood Pressure 87/57 94/54 101/58 (mmHg) O2 Sat by Pulse 93 Oximetry 08/25/16 08/25/16 08/25/16 18:00 18:15 18:31 Temperature Pulse Rate 99 101 Respiratory 17 15 18 Rate Blood Pressure 80/56 90/54 83/58 (mmHg) O2 Sat by Pulse 90 90 Oximetry 08/25/16 08/25/16 08/25/16 18:45 19:00 19:15 Temperature Pulse Rate 96 96 Respiratory 18 18 18 Rate Blood Pressure 100/68 83/56 87/64 (mmHg) O2 Sat by Pulse 93 92 Oximetry 08/25/16 08/25/16 08/25/16 19:30 19:41 19:45 Temperature 99.2 F Pulse Rate 100 97 Respiratory 19 18 Rate Blood Pressure 78/56 86/59 (mmHg) O2 Sat by Pulse 91 92 Oximetry 08/25/16 08/25/16 08/25/16 20:00 20:15 21:00 Temperature Pulse Rate 99 99 95 Respiratory 19 18 16 Rate Blood Pressure 86/60 86/56 86/57 (mmHg) O2 Sat by Pulse 92 91 91 Oximetry 08/25/16 08/25/16 08/25/16 21:49 22:00 23:00 Temperature Pulse Rate 95 99 Respiratory 16 19 Rate Blood Pressure 92/54 88/55 (mmHg) O2 Sat by Pulse 92 91 92 Oximetry 08/25/16 08/26/16 08/26/16 23:59 00:00 00:01 Temperature 98.2 F Pulse Rate 105 Respiratory 16 17 Rate Blood Pressure 87/58 (mmHg) O2 Sat by Pulse 93 Oximetry 08/26/16 08/26/16 08/26/16 01:00 02:00 03:00 Temperature Pulse Rate 110 109 108 Respiratory 16 15 18 Rate Blood Pressure 99/61 96/62 82/55 (mmHg) O2 Sat by Pulse 93 94 94 Oximetry 08/26/16 08/26/16 08/26/16 04:00 05:00 05:38 Temperature 98.4 F Pulse Rate 109 102 Respiratory 18 17 16 Rate Blood Pressure 110/60 95/57 (mmHg) O2 Sat by Pulse 94 93 Oximetry 08/26/16 08/26/16 06:00 07:55 Temperature 98.5 F Pulse Rate 101 Respiratory 15 Rate Blood Pressure 95/60 (mmHg) O2 Sat by Pulse 93 Oximetry Oxygen Devices in Use Now: None Appearance: Middle aged male sitting up in bed, NG tube in place but clamped off , NAD Eyes: No Scleral Icterus Ears/Nose/Mouth/Throat: - - dry oral mucosa Respiratory: Symmetrical Chest Expansion and Respiratory Effort, Clear to Auscultation - diminished breath sounds in the bases Cardiovascular: NL Sounds; No Murmurs; No JVD, No Edema, - - regular but slightly tachycardic Abdominal: NL Sounds; No Tenderness; No Distention Extremities: No Clubbing, Cyanosis Skin: No Rash or Ulcers, No Nodules or Sclerosis Neurological: - - alert, he looks at me when I address him Result Diagrams: 08/26/16 05:32 08/26/16 05:32 Additional Lab and Data: Lab Results 08/25/16 08/25/16 08/25/16 Range/Units 09:43 09:43 09:43 WBC 12.1 H (3.5-10.8) 10^3/ul RBC 4.96 (4.0-5.4) 10^6/ul Hgb 15.8 (14.0-18.0) g/dl Hct 48 (42-52) % MCV 96 H (80-94) fL MCH 32 H (27-31) pg MCHC 33 (31-36) g/dl RDW 15 (10.5-15) % Plt Count 266 (150-450) 10^3/ul MPV 10 (7.4-10.4) um3 Immature Gran % (Auto) 16 H (0-9) % Neut % (Auto) 61.6 (38-83) % Lymph % (Auto) 9.5 L (25-47) % [place] % (Auto) 27.2 H (1-9) % Eos % (Auto) 0.5 (0-6) % Baso % (Auto) 1.2 (0-2) % Absolute Neuts (auto) 7.4 (1.5-7.7) 10^3/ul Absolute Lymphs (auto) 1.1 (1.0-4.8) 10^3/ul Absolute Monos (auto) 3.3 H (0-0.8) 10^3/ul Absolute Eos (auto) 0.1 (0-0.6) 10^3/ul Absolute Basos (auto) 0.2 (0-0.2) 10^3/ul Absolute Nucleated RBC 0.01 10^3/ul Neutrophils % 49 (38-83) % Band Neutrophils % 14 H (0-8) % Lymphocytes % 17 L (25-47) % Monocytes % 17 H (0-13) % Eosinophils % 1 (0-6) % Metamyelocytes % 1 (0-2) % Myelocytes % 1 (0-1) % Nucleated RBC % 0.1 Normal RBC Morphology Normal (Normal) INR (Anticoag Therapy) 1.31 H (0.89-1.11) APTT 31.4 (26.0-36.3) seconds Sodium 134 (133-145) mmol/L Potassium 4.9 (3.5-5.0) mmol/L Chloride 95 L (101-111) mmol/L Carbon Dioxide 26 (22-32) mmol/L Anion Gap 13 H (2-11) mmol/L BUN 39 H (6-24) mg/dL Creatinine 1.12 (0.67-1.17) mg/dL Est GFR ( Amer) 86.9 (>60) Est GFR (Non-Af Amer) 67.6 (>60) BUN/Creatinine Ratio 34.8 H (8-20) Glucose 104 H (70-100) mg/dL Lactic Acid (0.5-2.0) mmol/L Calcium 9.5 (8.6-10.3) mg/dL Magnesium 2.5 (1.9-2.7) mg/dL Total Bilirubin 0.50 (0.2-1.0) mg/dL AST 25 (13-39) U/L ALT 8 (7-52) U/L Alkaline Phosphatase 90 (34-104) U/L Total Creatine Kinase 236 H (10-223) U/L CK-MB (CK-2) 3.1 (0.6-6.3) ng/mL Troponin I 0.04 H* (<0.04) ng/mL C-Reactive Protein 324.25 H (< 5.00) mg/L B-Natriuretic Peptide ( - 100) pg/mL Total Protein 7.2 (6.4-8.9) g/dL Albumin 3.3 (3.2-5.2) g/dL Globulin 3.9 (2-4) g/dL Albumin/Globulin Ratio 0.8 L (1-3) Lipase 28 (11.0-82.0) U/L TSH 3.55 (0.34-5.60) mcIU/mL Phenytoin 10.1 (10-20) mcg/mL Valproic Acid 38.0 L (50-100) mcg/mL 08/25/16 08/25/16 Range/Units 09:43 09:43 WBC (3.5-10.8) 10^3/ul RBC (4.0-5.4) 10^6/ul Hgb (14.0-18.0) g/dl Hct (42-52) % MCV (80-94) fL MCH (27-31) pg MCHC (31-36) g/dl RDW (10.5-15) % Plt Count (150-450) 10^3/ul MPV (7.4-10.4) um3 Immature Gran % (Auto) (0-9) % Neut % (Auto) (38-83) % Lymph % (Auto) (25-47) % [place] % (Auto) (1-9) % Eos % (Auto) (0-6) % Baso % (Auto) (0-2) % Absolute Neuts (auto) (1.5-7.7) 10^3/ul Absolute Lymphs (auto) (1.0-4.8) 10^3/ul Absolute Monos (auto) (0-0.8) 10^3/ul Absolute Eos (auto) (0-0.6) 10^3/ul Absolute Basos (auto) (0-0.2) 10^3/ul Absolute Nucleated RBC 10^3/ul Neutrophils % (38-83) % Band Neutrophils % (0-8) % Lymphocytes % (25-47) % Monocytes % (0-13) % Eosinophils % (0-6) % Metamyelocytes % (0-2) % Myelocytes % (0-1) % Nucleated RBC % Normal RBC Morphology (Normal) INR (Anticoag Therapy) (0.89-1.11) APTT (26.0-36.3) seconds Sodium (133-145) mmol/L Potassium (3.5-5.0) mmol/L Chloride (101-111) mmol/L Carbon Dioxide (22-32) mmol/L Anion Gap (2-11) mmol/L BUN (6-24) mg/dL Creatinine (0.67-1.17) mg/dL Est GFR ( Amer) (>60) Est GFR (Non-Af Amer) (>60) BUN/Creatinine Ratio (8-20) Glucose (70-100) mg/dL Lactic Acid 1.2 (0.5-2.0) mmol/L Calcium (8.6-10.3) mg/dL Magnesium (1.9-2.7) mg/dL Total Bilirubin (0.2-1.0) mg/dL AST (13-39) U/L ALT (7-52) U/L Alkaline Phosphatase (34-104) U/L Total Creatine Kinase (10-223) U/L CK-MB (CK-2) (0.6-6.3) ng/mL Troponin I (<0.04) ng/mL C-Reactive Protein (< 5.00) mg/L B-Natriuretic Peptide 188 H ( - 100) pg/mL Total Protein (6.4-8.9) g/dL Albumin (3.2-5.2) g/dL Globulin (2-4) g/dL Albumin/Globulin Ratio (1-3) Lipase (11.0-82.0) U/L TSH (0.34-5.60) mcIU/mL Phenytoin (10-20) mcg/mL Valproic Acid (50-100) mcg/mL Microbiology and Other Data: Microbiology 08/26/16 01:29 Legionella Urinary Antigen - Final Urine Negative Legionella Streptococcus pneumoniae Ag Screen - Final Negative S. pneumo Antigen 08/25/16 13:10 Nasal Screen MRSA (PCR)([facility]) - Final Nasal Mrsa Negative Assess/Plan/Problems-Billing Assessment: - Patient Problems (1) Aspiration pneumonia Current Visit: Yes Status: Acute Code(s): J69.0 - PNEUMONITIS DUE TO INHALATION OF FOOD AND VOMIT SNOMED Code(s): 376836896 Comment: The patient was felt to have a possible aspiration pna on admission given all of the vomiting that he had been doing. He remains on zosyn and azithromycin (will stop the later today). WBC count has normalized. He has no fever. Monitor for signs of respiratory distress. (2) SBO (small bowel obstruction) Current Visit: Yes Status: Acute Code(s): K56.69 - OTHER INTESTINAL OBSTRUCTION SNOMED Code(s): 745789764 Comment: There was concern for SBO on admission but ? more likely ileus. The patient is unable to tell us if he has passed any gas. He has not had a BM. Repeat AXR is pending for this AM. The NG tube can likely come out today as he has had minimal output. (3) Elevated troponin Current Visit: Yes Status: Acute Code(s): R74.8 - ABNORMAL LEVELS OF OTHER SERUM ENZYMES SNOMED Code(s): 496633281 Comment: Likely secondary to demand ischemia. Subsequent trop has normalized. Echo shows an EF >65% and no LV wall motion abnormalities. Will not puruse any further cardiac work up. (4) Seizure disorder Current Visit: Yes Status: Chronic Code(s): G40.909 - EPILEPSY, UNSP, NOT INTRACTABLE, WITHOUT STATUS EPILEPTICUS SNOMED Code(s): 091049208 Comment: The patient remains on his usual dose of lamictal orally and IV formulations of depakote and phenytoin. Once taking in orals will change the depakote and phenytoin to oral. (5) Hypothyroid Current Visit: Yes Status: Chronic Code(s): E03.9 - HYPOTHYROIDISM, UNSPECIFIED SNOMED Code(s): 61526106 Comment: TSH is in good range. Continue current dose of synthroid. (6) GERD (gastroesophageal reflux disease) Current Visit: Yes Status: Chronic Code(s): K21.9 - GASTRO-ESOPHAGEAL REFLUX DISEASE WITHOUT ESOPHAGITIS SNOMED Code(s): 433653440 Comment: Continue protonix. (7) Mental retardation Current Visit: Yes Status: Chronic Code(s): F79 - UNSPECIFIED INTELLECTUAL DISABILITIES SNOMED Code(s): 18114237 Comment: Diagnosis noted. (8) DVT prophylaxis Current Visit: Yes Status: Acute Code(s): GST4625 - SNOMED Code(s): 030138485 Comment: SQ heparin (9) Full code status Current Visit: Yes Status: Acute Code(s): Z78.9 - OTHER SPECIFIED HEALTH STATUS SNOMED Code(s): 593904995
[2016-08-26] MEDS: KCL 20 MEQ/100 ML IVPREMIX* 20 MEQ/100 ML BAG IV SCH ×2 (09:56→17:00)
--- NOTE | 2016-08-26 10:01 | RAD ---
Indication: Small bowel obstruction. Comparison: No relevant prior exams available on the [facility] PACS for comparison. Technique: Supine and LEFT lateral decubitus abdomen views.. Report: No radiographic evidence for free air. Large volume of formed stool throughout the colon with moderate rectal distention. Moderate long segment small bowel dilatation appears increased over the August 25, 2016 CT. Nasogastric tube with tip at level of the gastric body. Innumerable LEFT upper quadrant surgical clips. No suspicious calcifications or mass effect. Persistent airspace consolidation at the LEFT lung base. IMPRESSION: 1. Small bowel obstruction with increased magnitude of small bowel dilatation. Negative for free air. Large volume of stool in the colon with moderate rectal distention. 2. Persistent LEFT basilar pulmonary consolidation.
[2016-08-26] MEDS: LAMOTRIGINE 50 MG PO SCH ×2 (11:22→22:41)
[2016-08-26] MEDS: Pantoprazole IV* 40 MG IV SCH (11:29)
[2016-08-26] MEDS: Azithromycin IV(*) 500 MG in NS 0.9% 250 ML* 250 ML IVPB SCH (15:48)
[2016-08-26] MEDS ORDERED: Phenytoin IV(*) 50 MG/ML 2 ML VIAL (100 MG) ONE (22:13)
[2016-08-27] MEDS: Heparin VIAL(*) 5000 UNITS/ML VIAL (FIVE THOUSAND) SUBCUT SCH ×3 (06:09→21:38)
[2016-08-27] MEDS: Levothyroxine INJ* 100 MCG/5 ML VIAL IV SCH (06:22)
[2016-08-27] MEDS: NS 0.9% 1000 ML* 1,000 ML IV SCH (06:43)
[2016-08-27 07:43] LABS: Hematocrit 29 % (42-52); Hemoglobin 9.6 g/dl (14.0-18.0); Mean Corpuscular HGB Conc 34 g/dl (31-36); Mean Corpuscular Hemoglobin 33 pg (27-31); Mean Corpuscular Volume 97 fL (80-94); Mean Platelet Volume 9 um3 (7.4-10.4); Red Blood Count 2.93 10^6/ul (4.0-5.4); Red Cell Distribution Width 15 % (10.5-15); White Blood Count 6.7 10^3/ul (3.5-10.8)
[2016-08-27 07:59] LABS: Calcium 7.6 mg/dL (8.6-10.3); EGFR African American 397.4 (>60); Potassium 3.3 mmol/L (3.5-5.0)
[2016-08-27] MEDS: LAMOTRIGINE 50 MG PO SCH ×2 (09:40→21:39)
--- NOTE | 2016-08-27 10:36 | PN ---
Progress Note - Progress Note SOAP: Subjective: He appears comfortable today and had a larger bowel movement yesterday after enema The NGT has been removed and there is no vomiting documented. Objective: Temp Pulse Resp BP Pulse Ox 98.1 F 95 16 104/54 97 08/27/16 07:40 08/27/16 07:40 08/27/16 07:40 08/27/16 07:40 08/27/16 07:40 Intake & Output 08/25/16 08/26/16 08/27/16 08/28/16 06:59 06:59 06:59 06:59 Intake Total 5658 3547 Output Total 350 775 650 Balance 5308 2772 -650 Weight 149 lb 7.574 oz Intake: IV Fluids 4980 2688 NS (0.9%) 1366 2688 NS + ABX 564 IVPB 678 859 ABX - ZOSYN 203 439 Dilantin 107 100 KCl 110 NS + ABX 254 Valproic Acid 114 210 Oral 0 0 Output: NG Tube Drainage Amount 100 Urine 0 Straight Cath 250 775 650 Other: Estimated Void Large Medium Date of Last Bowel 08/26/16 Movement # Bowel Movements 1 Estimated Stool Amount Medium # Voids 1 3 PEX: Comfortable NAD Abd is soft and non-distended. Bowel sounds are present and active but are not high pitched or tinkling. There is no apparent tenderness or discomfort on deeper palpation and there is no guarding. Laboratory Results - last 24 hr 08/25/16 08/27/16 08/27/16 09:43 05:20 05:20 WBC 6.7 RBC 2.93 L Hgb 9.6 L Hct 29 L MCV 97 H MCH 33 H MCHC 34 RDW 15 Plt Count 122 L MPV 9 Sodium 139 Potassium 3.3 L Chloride 106 Carbon Dioxide 22 Anion Gap 11 BUN 6 Creatinine 0.30 L Est GFR ( Amer) 397.4 Est GFR (Non-Af Amer) 309.0 BUN/Creatinine Ratio 20.0 Glucose 60 L Calcium 7.6 L Lamotrigine 4.0 Assessment: SBO v. Ileus--this appears to be improving. The NGT was removed yesterday and he has had no further vomiting and is exam is benign. He had a BM yesterday. Pneumonia Plan: Would start po today and follow for now-if he develops vomiting or abdominal distension, would repeat CT scan. Continue IV antibiotics
[2016-08-27] MEDS: Pantoprazole IV* 40 MG IV SCH (12:11)
[2016-08-27] MEDS: Azithromycin IV(*) 500 MG in NS 0.9% 250 ML* 250 ML IVPB SCH (14:35)
--- NOTE | 2016-08-27 14:43 | PN ---
Subjective Date of Service: 08/27/16 Interval History: Pt is non-verbal. Per nursing he has been awake and interactive all day until now. Objective Active Medications: Acetaminophen (Tylenol Supp*) 650 mg [place] Q4H PRN PRN Reason: FEVER/PAIN Famotidine (Pepcid Tab*) 20 mg PO DAILY [facility] Heparin Sodium (Porcine) (Heparin Vial(*)) 5,000 units SUBCUT Q8HR [facility] Last Admin: 08/27/16 14:10 Dose: 5,000 units Heparin Sodium (Porcine) (Heparin Flush Picc/Ml/Cvc(*)) 0 ml IV FLUSH 0600, 1800 [facility] PRN Reason: Protocol Last Admin: 08/27/16 06:21 Dose: Not Given Piperacillin Sod/Tazobactam (Sod 3.375 gm/ Sodium Chloride) 100 mls @ 200 mls/ hr IVPB Q6H [facility] Last Admin: 08/27/16 09:30 Dose: 200 mls/hr Potassium Chloride (Potassium Chloride 20 Meq/100 Ml Ivpremix*) 20 meq in 100 mls @ 50 mls/hr IV Q2H [facility] Stop: 08/27/16 18:59 Lamotrigine (Lamictal Odt (Nf)) 100 mg PO BID [place] PRN Reason: Protocol Last Admin: 08/27/16 09:40 Dose: 100 mg Levothyroxine Sodium (Synthroid Inj*) 50 mcg IV 0600 [facility] Last Admin: 08/27/16 06:22 Dose: 50 mcg Ondansetron HCl (Zofran Inj*) 4 mg IV Q6H PRN PRN Reason: NAUSEA Pharmacy Consult (Zosyn Per Pharmacy*) 1 note FOLLOW UP .ZOSYN PER PHARMACY [facility] Phenytoin Sodium (Dilantin Cap(*)) 200 mg PO BEDTIME [facility] Valproic Acid (Depakene Cap(*)) 1,000 mg PO TID [facility] Vital Signs 08/26/16 08/27/16 08/27/16 20:00 00:08 04:09 Temperature 97.3 F 98.5 F Pulse Rate 92 70 Respiratory 18 16 16 Rate Blood Pressure 99/47 138/109 (mmHg) O2 Sat by Pulse 96 Oximetry 08/27/16 08/27/16 08/27/16 07:40 08:40 12:02 Temperature 98.1 F 98.7 F Pulse Rate 95 89 Respiratory 16 16 16 Rate Blood Pressure 104/54 121/61 (mmHg) O2 Sat by Pulse 97 97 Oximetry Oxygen Devices in Use Now: None Appearance: Middle aged male lying in bed sleeping, opens eyes when I call his name, NAD Eyes: No Scleral Icterus Ears/Nose/Mouth/Throat: Mucous Membranes Moist Respiratory: Symmetrical Chest Expansion and Respiratory Effort, Clear to Auscultation Cardiovascular: NL Sounds; No Murmurs; No JVD, RRR, No Edema Abdominal: NL Sounds; No Tenderness; No Distention Extremities: No Clubbing, Cyanosis, - - legs are contracted Skin: No Rash or Ulcers, No Nodules or Sclerosis Neurological: - - sleepy Result Diagrams: 08/27/16 05:20 08/27/16 05:20 Additional Lab and Data: Lab Results 08/25/16 08/25/16 08/25/16 Range/Units 09:43 09:43 09:43 WBC 12.1 H (3.5-10.8) 10^3/ul RBC 4.96 (4.0-5.4) 10^6/ul Hgb 15.8 (14.0-18.0) g/dl Hct 48 (42-52) % MCV 96 H (80-94) fL MCH 32 H (27-31) pg MCHC 33 (31-36) g/dl RDW 15 (10.5-15) % Plt Count 266 (150-450) 10^3/ul MPV 10 (7.4-10.4) um3 Immature Gran % (Auto) 16 H (0-9) % Neut % (Auto) 61.6 (38-83) % Lymph % (Auto) 9.5 L (25-47) % [place] % (Auto) 27.2 H (1-9) % Eos % (Auto) 0.5 (0-6) % Baso % (Auto) 1.2 (0-2) % Absolute Neuts (auto) 7.4 (1.5-7.7) 10^3/ul Absolute Lymphs (auto) 1.1 (1.0-4.8) 10^3/ul Absolute Monos (auto) 3.3 H (0-0.8) 10^3/ul Absolute Eos (auto) 0.1 (0-0.6) 10^3/ul Absolute Basos (auto) 0.2 (0-0.2) 10^3/ul Absolute Nucleated RBC 0.01 10^3/ul Neutrophils % 49 (38-83) % Band Neutrophils % 14 H (0-8) % Lymphocytes % 17 L (25-47) % Monocytes % 17 H (0-13) % Eosinophils % 1 (0-6) % Metamyelocytes % 1 (0-2) % Myelocytes % 1 (0-1) % Nucleated RBC % 0.1 Normal RBC Morphology Normal (Normal) INR (Anticoag Therapy) 1.31 H (0.89-1.11) APTT 31.4 (26.0-36.3) seconds Sodium 134 (133-145) mmol/L Potassium 4.9 (3.5-5.0) mmol/L Chloride 95 L (101-111) mmol/L Carbon Dioxide 26 (22-32) mmol/L Anion Gap 13 H (2-11) mmol/L BUN 39 H (6-24) mg/dL Creatinine 1.12 (0.67-1.17) mg/dL Est GFR ( Amer) 86.9 (>60) Est GFR (Non-Af Amer) 67.6 (>60) BUN/Creatinine Ratio 34.8 H (8-20) Glucose 104 H (70-100) mg/dL Lactic Acid (0.5-2.0) mmol/L Calcium 9.5 (8.6-10.3) mg/dL Magnesium 2.5 (1.9-2.7) mg/dL Total Bilirubin 0.50 (0.2-1.0) mg/dL AST 25 (13-39) U/L ALT 8 (7-52) U/L Alkaline Phosphatase 90 (34-104) U/L Total Creatine Kinase 236 H (10-223) U/L CK-MB (CK-2) 3.1 (0.6-6.3) ng/mL Troponin I 0.04 H* (<0.04) ng/mL C-Reactive Protein 324.25 H (< 5.00) mg/L B-Natriuretic Peptide ( - 100) pg/mL Total Protein 7.2 (6.4-8.9) g/dL Albumin 3.3 (3.2-5.2) g/dL Globulin 3.9 (2-4) g/dL Albumin/Globulin Ratio 0.8 L (1-3) Lipase 28 (11.0-82.0) U/L TSH 3.55 (0.34-5.60) mcIU/mL Phenytoin 10.1 (10-20) mcg/mL Valproic Acid 38.0 L (50-100) mcg/mL 08/25/16 08/25/16 Range/Units 09:43 09:43 WBC (3.5-10.8) 10^3/ul RBC (4.0-5.4) 10^6/ul Hgb (14.0-18.0) g/dl Hct (42-52) % MCV (80-94) fL MCH (27-31) pg MCHC (31-36) g/dl RDW (10.5-15) % Plt Count (150-450) 10^3/ul MPV (7.4-10.4) um3 Immature Gran % (Auto) (0-9) % Neut % (Auto) (38-83) % Lymph % (Auto) (25-47) % [place] % (Auto) (1-9) % Eos % (Auto) (0-6) % Baso % (Auto) (0-2) % Absolute Neuts (auto) (1.5-7.7) 10^3/ul Absolute Lymphs (auto) (1.0-4.8) 10^3/ul Absolute Monos (auto) (0-0.8) 10^3/ul Absolute Eos (auto) (0-0.6) 10^3/ul Absolute Basos (auto) (0-0.2) 10^3/ul Absolute Nucleated RBC 10^3/ul Neutrophils % (38-83) % Band Neutrophils % (0-8) % Lymphocytes % (25-47) % Monocytes % (0-13) % Eosinophils % (0-6) % Metamyelocytes % (0-2) % Myelocytes % (0-1) % Nucleated RBC % Normal RBC Morphology (Normal) INR (Anticoag Therapy) (0.89-1.11) APTT (26.0-36.3) seconds Sodium (133-145) mmol/L Potassium (3.5-5.0) mmol/L Chloride (101-111) mmol/L Carbon Dioxide (22-32) mmol/L Anion Gap (2-11) mmol/L BUN (6-24) mg/dL Creatinine (0.67-1.17) mg/dL Est GFR ( Amer) (>60) Est GFR (Non-Af Amer) (>60) BUN/Creatinine Ratio (8-20) Glucose (70-100) mg/dL Lactic Acid 1.2 (0.5-2.0) mmol/L Calcium (8.6-10.3) mg/dL Magnesium (1.9-2.7) mg/dL Total Bilirubin (0.2-1.0) mg/dL AST (13-39) U/L ALT (7-52) U/L Alkaline Phosphatase (34-104) U/L Total Creatine Kinase (10-223) U/L CK-MB (CK-2) (0.6-6.3) ng/mL Troponin I (<0.04) ng/mL C-Reactive Protein (< 5.00) mg/L B-Natriuretic Peptide 188 H ( - 100) pg/mL Total Protein (6.4-8.9) g/dL Albumin (3.2-5.2) g/dL Globulin (2-4) g/dL Albumin/Globulin Ratio (1-3) Lipase (11.0-82.0) U/L TSH (0.34-5.60) mcIU/mL Phenytoin (10-20) mcg/mL Valproic Acid (50-100) mcg/mL Microbiology and Other Data: Microbiology 08/26/16 01:29 Legionella Urinary Antigen - Final Urine Negative Legionella Streptococcus pneumoniae Ag Screen - Final Negative S. pneumo Antigen 08/25/16 13:10 Nasal Screen MRSA (PCR)(JULIO) - Final Nasal Mrsa Negative Assess/Plan/Problems-Billing Assessment: - Patient Problems (1) Aspiration pneumonia Current Visit: Yes Status: Acute Code(s): J69.0 - PNEUMONITIS DUE TO INHALATION OF FOOD AND VOMIT SNOMED Code(s): 384996719 Comment: The patient was felt to have a possible aspiration pna on admission given all of the vomiting that he had been doing. Continue zosyn-today is D#3/ . He is stable from a respiratory standpoint. (2) SBO (small bowel obstruction) Current Visit: Yes Status: Acute Code(s): K56.69 - OTHER INTESTINAL OBSTRUCTION SNOMED Code(s): 351821575 Comment: NG tube removed yesterday. He has not had any vomiting, other than the Xray he does not act like he has an obstruction. Will start the patient back on his usual pureed diet and see how he does. As there was a large amount of retained stool on Xray yesterday will give another tap water enema. (3) Elevated troponin Current Visit: Yes Status: Acute Code(s): R74.8 - ABNORMAL LEVELS OF OTHER SERUM ENZYMES SNOMED Code(s): 172836965 Comment: Likely secondary to demand ischemia. Subsequent trop has normalized. Echo shows an EF >65% and no LV wall motion abnormalities. Will not puruse any further cardiac work up. (4) Seizure disorder Current Visit: Yes Status: Chronic Code(s): G40.909 - EPILEPSY, UNSP, NOT INTRACTABLE, WITHOUT STATUS EPILEPTICUS SNOMED Code(s): 817284637 Comment: Change all meds back to oral. (5) Hypothyroid Current Visit: Yes Status: Chronic Code(s): E03.9 - HYPOTHYROIDISM, UNSPECIFIED SNOMED Code(s): 25370929 Comment: TSH is in good range. Continue current dose of synthroid. (6) GERD (gastroesophageal reflux disease) Current Visit: Yes Status: Chronic Code(s): K21.9 - GASTRO-ESOPHAGEAL REFLUX DISEASE WITHOUT ESOPHAGITIS SNOMED Code(s): 752416032 Comment: Resume famotidine. (7) Mental retardation Current Visit: Yes Status: Chronic Code(s): F79 - UNSPECIFIED INTELLECTUAL DISABILITIES SNOMED Code(s): 01015871 Comment: Diagnosis noted. (8) DVT prophylaxis Current Visit: Yes Status: Acute Code(s): MRT0820 - SNOMED Code(s): 786222485 Comment: SQ heparin (9) Full code status Current Visit: Yes Status: Acute Code(s): Z78.9 - OTHER SPECIFIED HEALTH STATUS SNOMED Code(s): 988149937
[2016-08-27] MEDS: KCL 20 MEQ/100 ML IVPREMIX* 20 MEQ/100 ML BAG IV SCH ×2 (15:37→18:13)
[2016-08-27] MEDS: Phenytoin CAP(*) 100 MG CAP.ER PO SCH (21:38)
[2016-08-27] MEDS: Valproic Acid CAP(*) 250 MG PO SCH (21:39)
[2016-08-28] MEDS: Levothyroxine INJ* 100 MCG/5 ML VIAL IV SCH (06:24)
[2016-08-28] MEDS: Heparin VIAL(*) 5000 UNITS/ML VIAL (FIVE THOUSAND) SUBCUT SCH ×3 (06:24→22:03)
[2016-08-28] MEDS: LAMOTRIGINE 50 MG PO SCH ×2 (09:35→22:02)
[2016-08-28] MEDS: Valproic Acid CAP(*) 250 MG PO SCH ×3 (09:35→22:03)
[2016-08-28] MEDS: Famotidine TAB* 20 MG PO SCH (09:36)
--- NOTE | 2016-08-28 15:56 | PN ---
Subjective Date of Service: 08/28/16 Interval History: Pt is sleeping, he awakens to light touch. Objective Active Medications: Acetaminophen (Tylenol Supp*) 650 mg [place] Q4H PRN PRN Reason: FEVER/PAIN Famotidine (Pepcid Tab*) 20 mg PO DAILY [facility] Last Admin: 08/28/16 09:36 Dose: 20 mg Heparin Sodium (Porcine) (Heparin Vial(*)) 5,000 units SUBCUT Q8HR [facility] Last Admin: 08/28/16 13:58 Dose: 5,000 units Heparin Sodium (Porcine) (Heparin Flush Picc/Ml/Cvc(*)) 0 ml IV FLUSH 0600, 1800 [facility] PRN Reason: Protocol Last Admin: 08/28/16 04:00 Dose: 1 ml Piperacillin Sod/Tazobactam (Sod 3.375 gm/ Sodium Chloride) 100 mls @ 200 mls/ hr IVPB Q6H [facility] Last Admin: 08/28/16 09:35 Dose: 200 mls/hr Lamotrigine (Lamictal Odt (Nf)) 100 mg PO BID [place] PRN Reason: Protocol Last Admin: 08/28/16 09:35 Dose: 100 mg Levothyroxine Sodium (Synthroid Inj*) 50 mcg IV 0600 [facility] Last Admin: 08/28/16 06:24 Dose: 50 mcg Ondansetron HCl (Zofran Inj*) 4 mg IV Q6H PRN PRN Reason: NAUSEA Pharmacy Consult (Zosyn Per Pharmacy*) 1 note FOLLOW UP .ZOSYN PER PHARMACY [facility] Phenytoin Sodium (Dilantin Cap(*)) 200 mg PO BEDTIME [facility] Last Admin: 08/27/16 21:38 Dose: 200 mg Valproic Acid (Depakene Cap(*)) 1,000 mg PO TID [facility] Last Admin: 08/28/16 13:57 Dose: 1,000 mg Vital Signs 08/27/16 08/27/16 08/27/16 19:27 20:00 23:41 Temperature 98.3 F 99.7 F Pulse Rate 88 89 Respiratory 19 18 16 Rate Blood Pressure 104/61 118/60 (mmHg) O2 Sat by Pulse 96 100 Oximetry 08/28/16 08/28/16 08/28/16 04:27 07:56 08:00 Temperature 97.5 F 98.4 F Pulse Rate 91 87 Respiratory 16 16 16 Rate Blood Pressure 86/50 99/58 (mmHg) O2 Sat by Pulse 95 95 Oximetry 08/28/16 08/28/16 08:59 14:17 Temperature 99.4 F Pulse Rate 80 Respiratory 18 Rate Blood Pressure 83/47 (mmHg) O2 Sat by Pulse 95 96 Oximetry Oxygen Devices in Use Now: None Appearance: Middle aged male sleeping sitting up in bed, NAD Eyes: No Scleral Icterus Ears/Nose/Mouth/Throat: Mucous Membranes Moist Respiratory: Symmetrical Chest Expansion and Respiratory Effort, Clear to Auscultation Cardiovascular: NL Sounds; No Murmurs; No JVD, RRR, No Edema Abdominal: NL Sounds; No Tenderness; No Distention Extremities: No Clubbing, Cyanosis Skin: No Rash or Ulcers, No Nodules or Sclerosis Neurological: - - sleeping but awakens to voice/light touch Result Diagrams: 08/27/16 05:20 08/27/16 05:20 Additional Lab and Data: Lab Results 08/25/16 08/25/16 08/25/16 Range/Units 09:43 09:43 09:43 WBC 12.1 H (3.5-10.8) 10^3/ul RBC 4.96 (4.0-5.4) 10^6/ul Hgb 15.8 (14.0-18.0) g/dl Hct 48 (42-52) % MCV 96 H (80-94) fL MCH 32 H (27-31) pg MCHC 33 (31-36) g/dl RDW 15 (10.5-15) % Plt Count 266 (150-450) 10^3/ul MPV 10 (7.4-10.4) um3 Immature Gran % (Auto) 16 H (0-9) % Neut % (Auto) 61.6 (38-83) % Lymph % (Auto) 9.5 L (25-47) % Darke % (Auto) 27.2 H (1-9) % Eos % (Auto) 0.5 (0-6) % Baso % (Auto) 1.2 (0-2) % Absolute Neuts (auto) 7.4 (1.5-7.7) 10^3/ul Absolute Lymphs (auto) 1.1 (1.0-4.8) 10^3/ul Absolute Monos (auto) 3.3 H (0-0.8) 10^3/ul Absolute Eos (auto) 0.1 (0-0.6) 10^3/ul Absolute Basos (auto) 0.2 (0-0.2) 10^3/ul Absolute Nucleated RBC 0.01 10^3/ul Neutrophils % 49 (38-83) % Band Neutrophils % 14 H (0-8) % Lymphocytes % 17 L (25-47) % Monocytes % 17 H (0-13) % Eosinophils % 1 (0-6) % Metamyelocytes % 1 (0-2) % Myelocytes % 1 (0-1) % Nucleated RBC % 0.1 Normal RBC Morphology Normal (Normal) INR (Anticoag Therapy) 1.31 H (0.89-1.11) APTT 31.4 (26.0-36.3) seconds Sodium 134 (133-145) mmol/L Potassium 4.9 (3.5-5.0) mmol/L Chloride 95 L (101-111) mmol/L Carbon Dioxide 26 (22-32) mmol/L Anion Gap 13 H (2-11) mmol/L BUN 39 H (6-24) mg/dL Creatinine 1.12 (0.67-1.17) mg/dL Est GFR ( Amer) 86.9 (>60) Est GFR (Non-Af Amer) 67.6 (>60) BUN/Creatinine Ratio 34.8 H (8-20) Glucose 104 H (70-100) mg/dL Lactic Acid (0.5-2.0) mmol/L Calcium 9.5 (8.6-10.3) mg/dL Magnesium 2.5 (1.9-2.7) mg/dL Total Bilirubin 0.50 (0.2-1.0) mg/dL AST 25 (13-39) U/L ALT 8 (7-52) U/L Alkaline Phosphatase 90 (34-104) U/L Total Creatine Kinase 236 H (10-223) U/L CK-MB (CK-2) 3.1 (0.6-6.3) ng/mL Troponin I 0.04 H* (<0.04) ng/mL C-Reactive Protein 324.25 H (< 5.00) mg/L B-Natriuretic Peptide ( - 100) pg/mL Total Protein 7.2 (6.4-8.9) g/dL Albumin 3.3 (3.2-5.2) g/dL Globulin 3.9 (2-4) g/dL Albumin/Globulin Ratio 0.8 L (1-3) Lipase 28 (11.0-82.0) U/L TSH 3.55 (0.34-5.60) mcIU/mL Phenytoin 10.1 (10-20) mcg/mL Valproic Acid 38.0 L (50-100) mcg/mL 08/25/16 08/25/16 Range/Units 09:43 09:43 WBC (3.5-10.8) 10^3/ul RBC (4.0-5.4) 10^6/ul Hgb (14.0-18.0) g/dl Hct (42-52) % MCV (80-94) fL MCH (27-31) pg MCHC (31-36) g/dl RDW (10.5-15) % Plt Count (150-450) 10^3/ul MPV (7.4-10.4) um3 Immature Gran % (Auto) (0-9) % Neut % (Auto) (38-83) % Lymph % (Auto) (25-47) % Darke % (Auto) (1-9) % Eos % (Auto) (0-6) % Baso % (Auto) (0-2) % Absolute Neuts (auto) (1.5-7.7) 10^3/ul Absolute Lymphs (auto) (1.0-4.8) 10^3/ul Absolute Monos (auto) (0-0.8) 10^3/ul Absolute Eos (auto) (0-0.6) 10^3/ul Absolute Basos (auto) (0-0.2) 10^3/ul Absolute Nucleated RBC 10^3/ul Neutrophils % (38-83) % Band Neutrophils % (0-8) % Lymphocytes % (25-47) % Monocytes % (0-13) % Eosinophils % (0-6) % Metamyelocytes % (0-2) % Myelocytes % (0-1) % Nucleated RBC % Normal RBC Morphology (Normal) INR (Anticoag Therapy) (0.89-1.11) APTT (26.0-36.3) seconds Sodium (133-145) mmol/L Potassium (3.5-5.0) mmol/L Chloride (101-111) mmol/L Carbon Dioxide (22-32) mmol/L Anion Gap (2-11) mmol/L BUN (6-24) mg/dL Creatinine (0.67-1.17) mg/dL Est GFR ( Amer) (>60) Est GFR (Non-Af Amer) (>60) BUN/Creatinine Ratio (8-20) Glucose (70-100) mg/dL Lactic Acid 1.2 (0.5-2.0) mmol/L Calcium (8.6-10.3) mg/dL Magnesium (1.9-2.7) mg/dL Total Bilirubin (0.2-1.0) mg/dL AST (13-39) U/L ALT (7-52) U/L Alkaline Phosphatase (34-104) U/L Total Creatine Kinase (10-223) U/L CK-MB (CK-2) (0.6-6.3) ng/mL Troponin I (<0.04) ng/mL C-Reactive Protein (< 5.00) mg/L B-Natriuretic Peptide 188 H ( - 100) pg/mL Total Protein (6.4-8.9) g/dL Albumin (3.2-5.2) g/dL Globulin (2-4) g/dL Albumin/Globulin Ratio (1-3) Lipase (11.0-82.0) U/L TSH (0.34-5.60) mcIU/mL Phenytoin (10-20) mcg/mL Valproic Acid (50-100) mcg/mL Microbiology and Other Data: Microbiology 08/26/16 01:29 Legionella Urinary Antigen - Final Urine Negative Legionella Streptococcus pneumoniae Ag Screen - Final Negative S. pneumo Antigen 08/25/16 13:10 Nasal Screen MRSA (PCR)(JULIO) - Final Nasal Mrsa Negative Assess/Plan/Problems-Billing Assessment: - Patient Problems (1) Aspiration pneumonia Current Visit: Yes Status: Acute Code(s): J69.0 - PNEUMONITIS DUE TO INHALATION OF FOOD AND VOMIT SNOMED Code(s): 563044854 Comment: Today is D#4/7. Will change from zosyn to augmentin to complete his therapy. He has no respiratory issues at this time. (2) SBO (small bowel obstruction) Current Visit: Yes Status: Acute Code(s): K56.69 - OTHER INTESTINAL OBSTRUCTION SNOMED Code(s): 701557033 Comment: Pt is doing well eating and he had BMs without an enema last night. He will be ready for d/c home tomorrow as long as everything remain stable. (3) Elevated troponin Current Visit: Yes Status: Acute Code(s): R74.8 - ABNORMAL LEVELS OF OTHER SERUM ENZYMES SNOMED Code(s): 034915396 Comment: Likely secondary to demand ischemia. Subsequent trop has normalized. Echo shows an EF >65% and no LV wall motion abnormalities. Will not puruse any further cardiac work up. (4) Seizure disorder Current Visit: Yes Status: Chronic Code(s): G40.909 - EPILEPSY, UNSP, NOT INTRACTABLE, WITHOUT STATUS EPILEPTICUS SNOMED Code(s): 966139013 Comment: Continue home medication regimen. (5) Hypothyroid Current Visit: Yes Status: Chronic Code(s): E03.9 - HYPOTHYROIDISM, UNSPECIFIED SNOMED Code(s): 91363410 Comment: TSH is in good range. Continue current dose of synthroid. (6) GERD (gastroesophageal reflux disease) Current Visit: Yes Status: Chronic Code(s): K21.9 - GASTRO-ESOPHAGEAL REFLUX DISEASE WITHOUT ESOPHAGITIS SNOMED Code(s): 441215831 Comment: Resume famotidine. (7) Mental retardation Current Visit: Yes Status: Chronic Code(s): F79 - UNSPECIFIED INTELLECTUAL DISABILITIES SNOMED Code(s): 16775514 Comment: Diagnosis noted. (8) DVT prophylaxis Current Visit: Yes Status: Acute Code(s): RMS3146 - SNOMED Code(s): 682689244 Comment: SQ heparin (9) Full code status Current Visit: Yes Status: Acute Code(s): Z78.9 - OTHER SPECIFIED HEALTH STATUS SNOMED Code(s): 040806404
[2016-08-28] MEDS: Phenytoin CAP(*) 100 MG CAP.ER PO SCH (22:03)
[2016-08-29] MEDS: Levothyroxine INJ* 100 MCG/5 ML VIAL IV SCH (06:06)
[2016-08-29] MEDS: Heparin VIAL(*) 5000 UNITS/ML VIAL (FIVE THOUSAND) SUBCUT SCH ×2 (06:06→13:33)
[2016-08-29] MEDS: Famotidine TAB* 20 MG PO SCH (09:10)
[2016-08-29] MEDS: Valproic Acid CAP(*) 250 MG PO SCH ×2 (09:10→13:33)
[2016-08-29] MEDS: LAMOTRIGINE 50 MG PO SCH (09:10)
--- NOTE | 2016-08-29 09:23 | PN ---
Progress Note - Progress Note SOAP: Subjective: He ate dinner and breakfast well without problem according to nurses. He had a large bowel movement yesterday. He appears comfortable and there has been no vomiting or other signs of discomfort Objective: Temp Pulse Resp BP Pulse Ox 98.2 F 80 16 94/50 96 08/29/16 07:27 08/29/16 07:27 08/29/16 07:27 08/29/16 07:27 08/29/16 07:27 PEX: Comfortable Awake and alert and non-verbal Abdomen is soft and slightly distended. No tenderness or guarding on palpation throughout. Bowel sounds are present and are normoactive. Assessment: Pneumonia SBO v Ileus--this has resolved and he it tolerating po and has has BM's with no further vomiting or abdominal pain Plan: Discussed with Dr. New--I feel he is cleared for discharge; no further specific surgical recommedations or intervention needed. Please call if needed, plan is for discharge today.
--- NOTE | 2016-08-29 09:49 | PN ---
Subjective Date of Service: 08/29/16 Interval History: Pt awakened and resisted me during my exam. He is non-verbal. He ate most of his breakfast this AM. Objective Active Medications: Acetaminophen (Tylenol Supp*) 650 mg [place] Q4H PRN PRN Reason: FEVER/PAIN Famotidine (Pepcid Tab*) 20 mg PO DAILY [facility] Last Admin: 08/29/16 09:10 Dose: 20 mg Heparin Sodium (Porcine) (Heparin Vial(*)) 5,000 units SUBCUT Q8HR [facility] Last Admin: 08/29/16 06:06 Dose: 5,000 units Heparin Sodium (Porcine) (Heparin Flush Picc/Ml/Cvc(*)) 0 ml IV FLUSH 0600, 1800 [facility] PRN Reason: Protocol Last Admin: 08/29/16 06:05 Dose: 2 ml Piperacillin Sod/Tazobactam (Sod 3.375 gm/ Sodium Chloride) 100 mls @ 200 mls/ hr IVPB Q6H [facility] Last Admin: 08/29/16 09:17 Dose: 200 mls/hr Lamotrigine (Lamictal Odt (Nf)) 100 mg PO BID [place] PRN Reason: Protocol Last Admin: 08/29/16 09:10 Dose: 100 mg Levothyroxine Sodium (Synthroid Inj*) 50 mcg IV 0600 [facility] Last Admin: 08/29/16 06:06 Dose: 50 mcg Ondansetron HCl (Zofran Inj*) 4 mg IV Q6H PRN PRN Reason: NAUSEA Pharmacy Consult (Zosyn Per Pharmacy*) 1 note FOLLOW UP .ZOSYN PER PHARMACY [facility] Phenytoin Sodium (Dilantin Cap(*)) 200 mg PO BEDTIME [facility] Last Admin: 08/28/16 22:03 Dose: 200 mg Valproic Acid (Depakene Cap(*)) 1,000 mg PO TID [facility] Last Admin: 08/29/16 09:10 Dose: 1,000 mg Vital Signs 08/28/16 08/28/16 08/28/16 11:46 14:16 14:17 Temperature 99.1 F 99.4 F 99.4 F Pulse Rate 92 80 80 Respiratory 16 18 18 Rate Blood Pressure 101/63 83/47 83/47 (mmHg) O2 Sat by Pulse 95 96 96 Oximetry 08/28/16 08/28/16 08/28/16 15:53 20:00 20:13 Temperature 98.5 F 98.2 F Pulse Rate 72 77 Respiratory 20 16 16 Rate Blood Pressure 97/55 107/63 (mmHg) O2 Sat by Pulse 98 97 Oximetry 08/28/16 08/29/16 08/29/16 23:49 04:46 07:27 Temperature 97.9 F 97.3 F 98.2 F Pulse Rate 100 83 80 Respiratory 16 16 16 Rate Blood Pressure 115/67 93/44 94/50 (mmHg) O2 Sat by Pulse 98 100 96 Oximetry Oxygen Devices in Use Now: None Appearance: Middle aged male sitting up in bed sleeping, awakens to voice, NAD Eyes: No Scleral Icterus Ears/Nose/Mouth/Throat: Mucous Membranes Moist Respiratory: Symmetrical Chest Expansion and Respiratory Effort, Clear to Auscultation Cardiovascular: NL Sounds; No Murmurs; No JVD, RRR, No Edema Abdominal: NL Sounds; No Tenderness; No Distention Extremities: No Clubbing, Cyanosis Skin: No Rash or Ulcers, No Nodules or Sclerosis Neurological: Alert and Oriented x 3 Result Diagrams: 08/27/16 05:20 08/27/16 05:20 Additional Lab and Data: Lab Results 08/25/16 08/25/16 08/25/16 Range/Units 09:43 09:43 09:43 WBC 12.1 H (3.5-10.8) 10^3/ul RBC 4.96 (4.0-5.4) 10^6/ul Hgb 15.8 (14.0-18.0) g/dl Hct 48 (42-52) % MCV 96 H (80-94) fL MCH 32 H (27-31) pg MCHC 33 (31-36) g/dl RDW 15 (10.5-15) % Plt Count 266 (150-450) 10^3/ul MPV 10 (7.4-10.4) um3 Immature Gran % (Auto) 16 H (0-9) % Neut % (Auto) 61.6 (38-83) % Lymph % (Auto) 9.5 L (25-47) % [place] % (Auto) 27.2 H (1-9) % Eos % (Auto) 0.5 (0-6) % Baso % (Auto) 1.2 (0-2) % Absolute Neuts (auto) 7.4 (1.5-7.7) 10^3/ul Absolute Lymphs (auto) 1.1 (1.0-4.8) 10^3/ul Absolute Monos (auto) 3.3 H (0-0.8) 10^3/ul Absolute Eos (auto) 0.1 (0-0.6) 10^3/ul Absolute Basos (auto) 0.2 (0-0.2) 10^3/ul Absolute Nucleated RBC 0.01 10^3/ul Neutrophils % 49 (38-83) % Band Neutrophils % 14 H (0-8) % Lymphocytes % 17 L (25-47) % Monocytes % 17 H (0-13) % Eosinophils % 1 (0-6) % Metamyelocytes % 1 (0-2) % Myelocytes % 1 (0-1) % Nucleated RBC % 0.1 Normal RBC Morphology Normal (Normal) INR (Anticoag Therapy) 1.31 H (0.89-1.11) APTT 31.4 (26.0-36.3) seconds Sodium 134 (133-145) mmol/L Potassium 4.9 (3.5-5.0) mmol/L Chloride 95 L (101-111) mmol/L Carbon Dioxide 26 (22-32) mmol/L Anion Gap 13 H (2-11) mmol/L BUN 39 H (6-24) mg/dL Creatinine 1.12 (0.67-1.17) mg/dL Est GFR ( Amer) 86.9 (>60) Est GFR (Non-Af Amer) 67.6 (>60) BUN/Creatinine Ratio 34.8 H (8-20) Glucose 104 H (70-100) mg/dL Lactic Acid (0.5-2.0) mmol/L Calcium 9.5 (8.6-10.3) mg/dL Magnesium 2.5 (1.9-2.7) mg/dL Total Bilirubin 0.50 (0.2-1.0) mg/dL AST 25 (13-39) U/L ALT 8 (7-52) U/L Alkaline Phosphatase 90 (34-104) U/L Total Creatine Kinase 236 H (10-223) U/L CK-MB (CK-2) 3.1 (0.6-6.3) ng/mL Troponin I 0.04 H* (<0.04) ng/mL C-Reactive Protein 324.25 H (< 5.00) mg/L B-Natriuretic Peptide ( - 100) pg/mL Total Protein 7.2 (6.4-8.9) g/dL Albumin 3.3 (3.2-5.2) g/dL Globulin 3.9 (2-4) g/dL Albumin/Globulin Ratio 0.8 L (1-3) Lipase 28 (11.0-82.0) U/L TSH 3.55 (0.34-5.60) mcIU/mL Phenytoin 10.1 (10-20) mcg/mL Valproic Acid 38.0 L (50-100) mcg/mL 08/25/16 08/25/16 Range/Units 09:43 09:43 WBC (3.5-10.8) 10^3/ul RBC (4.0-5.4) 10^6/ul Hgb (14.0-18.0) g/dl Hct (42-52) % MCV (80-94) fL MCH (27-31) pg MCHC (31-36) g/dl RDW (10.5-15) % Plt Count (150-450) 10^3/ul MPV (7.4-10.4) um3 Immature Gran % (Auto) (0-9) % Neut % (Auto) (38-83) % Lymph % (Auto) (25-47) % Tama % (Auto) (1-9) % Eos % (Auto) (0-6) % Baso % (Auto) (0-2) % Absolute Neuts (auto) (1.5-7.7) 10^3/ul Absolute Lymphs (auto) (1.0-4.8) 10^3/ul Absolute Monos (auto) (0-0.8) 10^3/ul Absolute Eos (auto) (0-0.6) 10^3/ul Absolute Basos (auto) (0-0.2) 10^3/ul Absolute Nucleated RBC 10^3/ul Neutrophils % (38-83) % Band Neutrophils % (0-8) % Lymphocytes % (25-47) % Monocytes % (0-13) % Eosinophils % (0-6) % Metamyelocytes % (0-2) % Myelocytes % (0-1) % Nucleated RBC % Normal RBC Morphology (Normal) INR (Anticoag Therapy) (0.89-1.11) APTT (26.0-36.3) seconds Sodium (133-145) mmol/L Potassium (3.5-5.0) mmol/L Chloride (101-111) mmol/L Carbon Dioxide (22-32) mmol/L Anion Gap (2-11) mmol/L BUN (6-24) mg/dL Creatinine (0.67-1.17) mg/dL Est GFR ( Amer) (>60) Est GFR (Non-Af Amer) (>60) BUN/Creatinine Ratio (8-20) Glucose (70-100) mg/dL Lactic Acid 1.2 (0.5-2.0) mmol/L Calcium (8.6-10.3) mg/dL Magnesium (1.9-2.7) mg/dL Total Bilirubin (0.2-1.0) mg/dL AST (13-39) U/L ALT (7-52) U/L Alkaline Phosphatase (34-104) U/L Total Creatine Kinase (10-223) U/L CK-MB (CK-2) (0.6-6.3) ng/mL Troponin I (<0.04) ng/mL C-Reactive Protein (< 5.00) mg/L B-Natriuretic Peptide 188 H ( - 100) pg/mL Total Protein (6.4-8.9) g/dL Albumin (3.2-5.2) g/dL Globulin (2-4) g/dL Albumin/Globulin Ratio (1-3) Lipase (11.0-82.0) U/L TSH (0.34-5.60) mcIU/mL Phenytoin (10-20) mcg/mL Valproic Acid (50-100) mcg/mL Microbiology and Other Data: Microbiology 08/26/16 01:29 Legionella Urinary Antigen - Final Urine Negative Legionella Streptococcus pneumoniae Ag Screen - Final Negative S. pneumo Antigen 08/25/16 13:10 Nasal Screen MRSA (PCR)(JULIO) - Final Nasal Mrsa Negative Assess/Plan/Problems-Billing Assessment: - Patient Problems (1) Aspiration pneumonia Current Visit: Yes Status: Acute Code(s): J69.0 - PNEUMONITIS DUE TO INHALATION OF FOOD AND VOMIT SNOMED Code(s): 136386881 Comment: Today is D#5/7. Will change from zosyn to augmentin to complete his therapy today. He has no respiratory issues at this time. (2) SBO (small bowel obstruction) Current Visit: Yes Status: Acute Code(s): K56.69 - OTHER INTESTINAL OBSTRUCTION SNOMED Code(s): 734235373 Comment: Pt is doing well, eating without difficulty. Had large BM yesterday. He is ready for d/c home today. I spoke with his residential nurse and discussed his hospital course/ongoing plan. (3) Elevated troponin Current Visit: Yes Status: Acute Code(s): R74.8 - ABNORMAL LEVELS OF OTHER SERUM ENZYMES SNOMED Code(s): 848554620 Comment: Likely secondary to demand ischemia. Subsequent trop has normalized. Echo shows an EF >65% and no LV wall motion abnormalities. Will not puruse any further cardiac work up. (4) Seizure disorder Current Visit: Yes Status: Chronic Code(s): G40.909 - EPILEPSY, UNSP, NOT INTRACTABLE, WITHOUT STATUS EPILEPTICUS SNOMED Code(s): 310958944 Comment: Continue home medication regimen. (5) Hypothyroid Current Visit: Yes Status: Chronic Code(s): E03.9 - HYPOTHYROIDISM, UNSPECIFIED SNOMED Code(s): 83387918 Comment: TSH is in good range. Continue current dose of synthroid. (6) GERD (gastroesophageal reflux disease) Current Visit: Yes Status: Chronic Code(s): K21.9 - GASTRO-ESOPHAGEAL REFLUX DISEASE WITHOUT ESOPHAGITIS SNOMED Code(s): 241845228 Comment: Resume famotidine. (7) Mental retardation Current Visit: Yes Status: Chronic Code(s): F79 - UNSPECIFIED INTELLECTUAL DISABILITIES SNOMED Code(s): 84717228 Comment: Diagnosis noted. (8) DVT prophylaxis Current Visit: Yes Status: Acute Code(s): LLO6746 - SNOMED Code(s): 177201416 Comment: SQ heparin (9) Full code status Current Visit: Yes Status: Acute Code(s): Z78.9 - OTHER SPECIFIED HEALTH STATUS SNOMED Code(s): 691200415 Status and Disposition: d/c home today after repeat labs back
[2016-08-29 10:34] LABS: Hematocrit 30 % (42-52); Hemoglobin 10.1 g/dl (14.0-18.0); Mean Corpuscular HGB Conc 34 g/dl (31-36); Mean Corpuscular Hemoglobin 32 pg (27-31); Mean Corpuscular Volume 96 fL (80-94); Mean Platelet Volume 8 um3 (7.4-10.4); Red Blood Count 3.11 10^6/ul (4.0-5.4); Red Cell Distribution Width 14 % (10.5-15); White Blood Count 7.7 10^3/ul (3.5-10.8)
[2016-08-29 10:52] LABS: BUN/Creatinine Ratio 5.9 (8-20); Calcium 7.8 mg/dL (8.6-10.3); EGFR Non-African American 267.5 (>60); Potassium 3.2 mmol/L (3.5-5.0)
[2016-08-29 12:56] VITALS: BP 93/45
[2016-08-29] MEDS ORDERED: Potassium Chloride LIQUID* 20 MEQ PACKET PO ONE (14:33)
--- NOTE | 2016-08-30 02:18 | DS ---
CC: Vic Kirkland MD * DISCHARGE SUMMARY: DATE OF ADMISSION: 08/25/16 DATE OF DISCHARGE: 08/29/16 PRIMARY CARE PROVIDER: Vic Kirkland MD PRINCIPAL DIAGNOSES: 1. Probable aspirate pneumonia. 2. Possible small bowel obstruction versus ileus. SECONDARY DIAGNOSES: 1. Seizure disorder. 2. Intellectual developmental delay. 3. Gastroesophageal reflux disease. DISCHARGE MEDICATIONS: 1. Senna-S 8.5/50 mg 2 tabs p.o. q.h.s. p.r.n. constipation. 2. Phenytoin 200 mg p.o. q.h.s. 3. Depakote 1000 mg p.o. t.i.d. 4. Acetaminophen 650 mg p.o. q.6 hours p.r.n. pain. 5. Dulcolax 10 mg SC daily p.r.n. constipation. 6. MOM 30 mL p.o. b.i.d. p.r.n. constipation. 7. Diastat 20 mg SC daily p.r.n. seizure. 8. Zofran 4 mg p.o. q.6 hours p.r.n. nausea. 9. Tylenol suppository 650 mg SC q.4 hours p.r.n. pain or fever. 10. Robitussin DM 5 mL p.o. q.6 hours p.r.n. cough. 11. Debrox 3 drops to both ears b.i.d. p.r.n. wax build up. 12. Imodium 2 mg p.o. q.4 hours p.r.n. diarrhea. 13. Reglan 10 mg p.o. 4 times a day. 14. Famotidine 20 mg p.o. daily. 15. Artificial Tears 1 drop to both eyes b.i.d. 16. MiraLAX 17 g p.o. daily. 17. Multivitamin 1 tab p.o. daily. 18. Levothyroxine 100 mcg p.o. daily. 19. Lamictal 100 mg p.o. b.i.d. 20. Augmentin 500 mg p.o. b.i.d. x3 days. HOSPITAL COURSE: Mr. Urbina is a 56-year-old male with intellectual developmental delay, who presented to the emergency room on 08/25/16, with complaints of fever, nausea, and vomiting. The patient has intellectual developmental delay and is nonverbal. His caregiver noted on the prior to admission, he had fever. He was noted to be nauseous and vomiting. He was seen by his primary care provider, who felt he likely had a viral gastroenteritis. This Thursday night prior to admission, he again started vomiting. He was noted to be more lethargic and therefore presented to the hospital. The patient was admitted for a possible aspiration pneumonia and possible small bowel obstruction. The patient was placed in the intensive care unit. He had an NG tube placed for decompression. The NG tube did not drain much in terms of gastric content. He was seen in consultation by General Surgery, who the day after admission recommended having the NG tube removed. The patient was slowly started back on his regular diet, which he has been tolerating. The patient did have x-rays, which revealed copious amount of stool in the colon. A tap water enema was performed, which did produce the bowel movement. Following that, the patient continued to have bowel movements without any assistance. The patient has been tolerating his regular diet, eating 80% to 100% of each meal and without any vomiting. In terms of the aspiration pneumonia, the patient was treated with Zosyn during the course of the hospitalization. He will receive 3 more days of Augmentin at home. The patient was continued on his usual home antiepileptic regimen. He had no seizures while hospitalized. FOLLOWUP CONCERNS: The patient is being discharged to home today, 08/29/16. ACTIVITY LEVEL: As tolerated. DIET: Regular, pureed. CONDITION ON DISCHARGE: Stable. FOLLOWUP: He is to follow up with Dr. Kirkland in the next 4 to 7 days. TIME SPENT: 35 minutes were spent discharging this patient. [id number]/[facility] #: [id number] IRMA
== END 2016-08-29 18:15 | disposition home or self-care (01) | DRG 388 ==
LOC: ED 09:15 → ICU 11:24 → MED 08-26 12:13
PROVIDERS: ADMIT Hospitalist; ATTEND Hospitalist
PROC: 0D9670Z Drainage of Stomach with Drainage Device, Via Natural or Artificial Opening (ICD-10-PCS; principal; 2016-08-25)
PROC: 02HV33Z Insertion of Infusion Device into Superior Vena Cava, Percutaneous Approach (ICD-10-PCS; 2016-08-25)
PROC: 0DP6XUZ Removal of Feeding Device from Stomach, External Approach (ICD-10-PCS; 2016-08-26)
DX: K56.60 Unspecified intestinal obstruction (principal); G82.50 Quadriplegia, unspecified; J69.0 Pneumonitis due to inhalation of food and vomit; I95.9 Hypotension, unspecified; E86.0 Dehydration; K56.7 Ileus, unspecified; E03.9 Hypothyroidism, unspecified; K21.9 Gastro-esophageal reflux disease without esophagitis; K59.09 Other constipation; G40.909 Epilepsy, unspecified, not intractable, without status epilepticus; F79 Unspecified intellectual disabilities; R74.8 Abnormal levels of other serum enzymes
CPT/HCPCS: 36415; 71010; 74020; 74176; 80048; 80053; 80164; 80175; 80185; 81003; 82270; 82550; 82553; 83605; 83630; 83690; 83735; 83880; 84443; 84484; 85025; 85027; 85610; 85730; 86140; 87040; 87045; 87046; 87077; 87086; 87328; 87329; 87641; 87899; 93005; 93306; 94760; A9270-GY; C1751; J0456; J0696; J1165; J1644; J2060; J2405; J2543; J3480

== ENCOUNTER 2016-12-24 16:48 | Emergency (ER) | payer MEDICARE, BC, MEDICAID ==
--- NOTE | 2016-12-24 19:59 | RAD ---
Indication: Low normal temperature. Low blood pressure. Nonverbal patient. Sepsis. Comparison: August 25, [address] Technique: Upright AP 1930 hours Report: Low lung volumes with crowding of the pulmonary markings. LEFT greater than RIGHT bibasilar airspace consolidation which may represent atelectasis given low lung volumes or pneumonia with similar appearance to the August 25, 2016 exam. Grossly clear pleural spaces. Upper normal heart size accounting for low lung volumes and portable AP technique. Unremarkable central pulmonary vasculature and mediastinal contours. Normal variant interposition of the colon between the liver and the diaphragm as on the prior exam. No suggestion of free air. LEFT upper abdominal surgical clips. IMPRESSION: Low lung volumes with nonspecific LEFT greater than RIGHT basilar airspace consolidation which may represent atelectasis or pneumonia.
[2016-12-24 20:12] LABS: Hematocrit 40 % (42-52); Hemoglobin 13.2 g/dl (14.0-18.0); Mean Corpuscular HGB Conc 33 g/dl (31-36); Mean Corpuscular Hemoglobin 31 pg (27-31); Mean Corpuscular Volume 94 fL (80-94); Mean Platelet Volume 9 um3 (7.4-10.4); Red Blood Count 4.21 10^6/ul (4.0-5.4); Red Cell Distribution Width 14 % (10.5-15); White Blood Count 6.4 10^3/ul (3.5-10.8)
[2016-12-24 20:30] LABS: Albumin 3.8 g/dL (3.2-5.2); BUN/Creatinine Ratio 24.3 (8-20); C Reactive Protein 13.32 mg/L (< 5.00); Calcium 9.4 mg/dL (8.6-10.3); EGFR African American 140.2 (>60); Globulin 3.2 g/dL (2-4); Potassium 4.4 mmol/L (3.5-5.0); Total Bilirubin 0.2 mg/dL (0.2-1.0)
[2016-12-24 20:32] LABS: Troponin I 0.01 ng/mL (<0.04)
[2016-12-24] MEDS ORDERED: Levofloxacin TAB* 250 MG PO ONE (21:54)
--- NOTE | 2016-12-24 22:12 | ED ---
Deepti Robert Thomas, scribed for Wild Cabrera MD on 12/24/16 at 1929 . Sepsis HPI - HPI Summary HPI Summary: The patient is a 56 y/o M with a Hx of mental retardation who was brought to the ED with a low temperature and hypotension. Prior to arrival, the patients temperature was measured temporally at 93 and 94, prompting the patient's PMD Dr. Kirkland to refer the patient to the ED. The patient took a bath prior to arrival which raised his temperature from 93 to 94. At triage, the patients temperature is 95.2 measured temporally. His BP at triage in the ED is 87/60. The patients sister is present who provides the patients history. Otherwise, the patient is behaving normally, per sister. PMHx: mental retardation, seizures , spastic quadriplegia. LEVEL FIVE CAVEAT: HPI LIMITED D/T MENTAL RETARDATION - History of Current Complaint Chief Complaint: EDGeneral Time Seen by Provider: 12/24/16 18:55 Stated Complaint: ABDNORMAL TEMP Hx Obtained From: Patient Onset/Duration: Started Hours Ago - low temperature was measured today, Still Present Timing: Constant Pain Intensity: 0 Pain Scale Used: 0-10 Numeric Aggravating Symptom(s): Unknown Alleviating Factor(s): Unknown Associated Signs & Symptoms: Other - Hypotensive, low temperature - Additional Pertinent History Primary Care Physician: [id number] - Allergy/Home Medications Allergies/Adverse Reactions: Allergies Allergy/AdvReac Type Severity Reaction Status Date / Time No Known Allergies Allergy Verified 07/25/16 13:09 PMH/Surg Hx/FS Hx/Imm Hx Previously Healthy: No - LEVEL FIVE CAVEAT: PMH LIMITED D/T MENTAL RETARDATION Endocrine/Hematology History: Reports: Hx Thyroid Disease - hypothyroid Denies: Hx Diabetes, Hx Systemic Lupus Erythematosus Cardiovascular History: Denies: Hx Congestive Heart Failure, Hx Hypertension GI History: Reports: Hx Gastroesophageal Reflux Disease, Other GI Disorders - anorexia, dehydration History: Reports: Other Problems/Disorders - hx frequent straight caths Denies: Hx Dialysis, Hx Renal Disease Musculoskeletal History: Reports: Other Musculoskeletal History - contracture of the legs Denies: Hx Rheumatoid Arthritis Sensory History: Denies: Hx Contacts or Glasses, Hx Hearing Aid Opthamlomology History: Denies: Hx Contacts or Glasses Neurological History: Reports: Hx Developmental Delay, Hx Seizures - Cancer History Hx Chemotherapy: No - Surgical History Surgery Procedure, Year, and Place: colon resection for a SBO Infectious Disease History: Unable to Obtain/Confirm Infectious Disease History: Denies: Hx Clostridium Difficile, Hx Hepatitis, Hx Human Immunodeficiency Virus (HIV), Hx of Known/Suspected MRSA, Hx Shingles, Hx Tuberculosis, Hx Known/ Suspected VRE, Hx Known/Suspected VRSA, History Other Infectious Disease, Traveled Outside the [place] in Last 30 Days - Family History Known Family History: Negative: Hypertension, Diabetes - Social History Lives: [facility] Alcohol Use: None Hx Substance Use: No Substance Use Type: Reports: None Hx Tobacco Use: No Smoking Status (MU): Never Smoked Tobacco Review of Systems - ROS Summary Review of Systems Summary: LEVEL FIVE CAVEAT: ROS LIMITED D/T MENTAL RETARDATION Positive: Other - Temperature at 95.6 at ED triage Positive: Other - Hypotensive Neurological: Other - He is at baseline mentation All Other Systems Reviewed And Are Negative: No Physical Exam - Summary Physical Exam Summary: LEVEL FIVE CAVEAT: PHYSICAL EXAM LIMITED D/T MENTAL RETARDATION Triage Information Reviewed: Yes Vital Signs On Initial Exam: Initial Vitals Temp Pulse Resp BP Pulse Ox 95.2 F 70 16 87/60 97 12/24/16 16:59 12/24/16 16:59 12/24/16 16:59 12/24/16 16:59 12/24/16 16:59 Vital Signs Reviewed: Yes Appearance: Positive: Well-Appearing, No Pain Distress Skin: Positive: Warm, Skin Color Reflects Adequate Perfusion, Dry Head/Face: Positive: Normal Head/Face Inspection Eyes: Positive: Normal ENT: Positive: Normal ENT inspection Neck: Positive: Supple, Nontender Respiratory/Lung Sounds: Positive: Clear to Auscultation, Breath Sounds Present Cardiovascular: Positive: RRR Abdomen Description: Positive: Nontender, Soft Bowel Sounds: Positive: Present Musculoskeletal: Positive: Normal Neurological: Positive: Normal Psychiatric: Positive: Normal, Affect/Mood Appropriate - Eidson Coma Scale Coma Scale Total: 10 Diagnostics - Vital Signs Vital Signs Temp Pulse Resp BP Pulse Ox 12/24/16 19:00 74 83/51 94 12/24/16 18:59 73 95 12/24/16 18:57 89/59 12/24/16 18:53 96.9 F 12/24/16 16:59 95.2 F 70 16 87/60 97 - Laboratory Lab Results: Lab Results 12/24/16 12/24/16 Range/Units 20:00 20:00 WBC 6.4 (3.5-10.8) 10^3/ul RBC 4.21 (4.0-5.4) 10^6/ul Hgb 13.2 L (14.0-18.0) g/dl Hct 40 L (42-52) % MCV 94 (80-94) fL MCH 31 (27-31) pg MCHC 33 (31-36) g/dl RDW 14 (10.5-15) % Plt Count 180 (150-450) 10^3/ul MPV 9 (7.4-10.4) um3 Neut % (Auto) 53.1 (38-83) % Lymph % (Auto) 26.6 (25-47) % Luce % (Auto) 16.7 H (1-9) % Eos % (Auto) 2.9 (0-6) % Baso % (Auto) 0.7 (0-2) % Absolute Neuts (auto) 3.4 (1.5-7.7) 10^3/ul Absolute Lymphs (auto) 1.7 (1.0-4.8) 10^3/ul Absolute Monos (auto) 1.1 H (0-0.8) 10^3/ul Absolute Eos (auto) 0.2 (0-0.6) 10^3/ul Absolute Basos (auto) 0 (0-0.2) 10^3/ul Absolute Nucleated RBC 0 10^3/ul Nucleated RBC % 0 Sodium 135 (133-145) mmol/L Potassium 4.4 (3.5-5.0) mmol/L Chloride 97 L (101-111) mmol/L Carbon Dioxide 32 (22-32) mmol/L Anion Gap 6 (2-11) mmol/L BUN 18 (6-24) mg/dL Creatinine 0.74 (0.67-1.17) mg/dL Est GFR ( Amer) 140.2 (>60) Est GFR (Non-Af Amer) 109.0 (>60) BUN/Creatinine Ratio 24.3 H (8-20) Glucose 87 (70-100) mg/dL Calcium 9.4 (8.6-10.3) mg/dL Total Bilirubin 0.20 (0.2-1.0) mg/dL AST 18 (13-39) U/L ALT 11 (7-52) U/L Alkaline Phosphatase 95 (34-104) U/L Troponin I 0.01 (<0.04) ng/mL C-Reactive Protein 13.32 H (< 5.00) mg/L Total Protein 7.0 (6.4-8.9) g/dL Albumin 3.8 (3.2-5.2) g/dL Globulin 3.2 (2-4) g/dL Albumin/Globulin Ratio 1.2 (1-3) Result Diagrams: 12/24/16 20:00 12/24/16 20:00 Lab Statement: Any lab studies that have been ordered have been reviewed, and results considered in the medical decision making process. - Radiology CXR Xray Interpretation: Positive (See Comments) - Low lung volumes with nonspecific LEFT greater than RIGHT basilar airspace consolidation which may represent atelectasis or pneumonia. ED physician has reviewed this report and agrees. Radiology Interpretation Completed By: Radiologist Course/Dx - Course Course Of Treatment: Mr. Urbina was brought in because it was noticed that his temp was a bit low. A W/U here suggests that he may be getting pneumonia and I will treat him with antibiotics. - Differential Dx/Clinical Impression Provider Diagnosis: Pneumonia Discharge - Discharge Plan Condition: Stable Disposition: HOME Prescriptions: Levofloxacin TAB* [Levaquin TAB*] 750 mg PO DAILY #10 tab Patient Education Materials: Pneumonia (ED) Referrals: Vic Kirkland MD [Primary Care Provider] - 3 Days Additional Instructions: Follow up with your primary care provider in 2-3 days. Return to the emergency department for any new or worsening symptoms. The documentation as recorded by the Deepti michelle Thomas accurately reflects the service I personally performed and the decisions made by , Wild Cabrera MD.
[2016-12-24 22:36] VITALS: BP 120/69
== END 2016-12-24 22:47 | disposition home or self-care (01) ==
LOC: ED 16:48
DX: J18.9 Pneumonia, unspecified organism (principal); R68.0 Hypothermia, not associated with low environmental temperature; I95.9 Hypotension, unspecified; F79 Unspecified intellectual disabilities; E03.9 Hypothyroidism, unspecified; K21.9 Gastro-esophageal reflux disease without esophagitis
CPT/HCPCS: 36415; 71010; 80053; 84484; 85025; 86140; 87040; 99283; A9270-GY

== ENCOUNTER 2018-12-24 09:38 | Emergency (ER) | payer MEDICARE, BC, MEDICAID ==
[2018-12-24 10:12] VITALS: BP 120/65
--- NOTE | 2018-12-24 10:32 | UC ---
Respiratory Complaint HPI - HPI Summary HPI Summary: 58-year-old nonverbal male who lives in a long-term. He has profound mental retardation. He has been sick with cold symptoms and a moist cough for the past 3 days. Other residents in the home have been diagnosed with bronchitis and pneumonia. No fever according to caregiver with him. - History of Current Complaint Chief Complaint: UCRespiratory Stated Complaint: MOIST COUGH Time Seen by Provider: 12/24/18 10:22 Hx Obtained From: Family/Tone Regulator Hx From Patient Unobtainable Due To: Other - Patient is nonverbal Onset/Duration: Gradual Onset Timing: Intermittent Episodes Severity Initially: Mild Severity Currently: Mild Pain Intensity: 0 Character: Cough: Nonproductive - Loose, moist cough. Aggravating Factors: Nothing Alleviating Factors: Nothing - The caregivers have been giving Robitussin without relief. Associated Signs And Symptoms: Positive: URI, Nasal Congestion - Allergies/Home Medications Allergies/Adverse Reactions: Allergies Allergy/AdvReac Type Severity Reaction Status Date / Time No Known Allergies Allergy Verified 07/25/16 13:09 Home Medications: Home Medications Acetaminophen SUPP* [Tylenol Supp*] 650 mg VT Q6H PRN 12/24/18 [History Confirmed 12/24/18] Acetaminophen TAB* [Tylenol TAB*] 650 mg PO Q6H PRN 12/24/18 [History Confirmed 12/24/18] Bisacodyl SUPP* [Dulcolax Supp*] 10 mg VT SEE INSTRUCTIONS PRN 12/24/18 [ History Confirmed 12/24/18] Carbamide Peroxide 6.5% OTIC* [DEBROX 6.5% Otic*] 3 drop BOTH EARS BID PRN 12/24 [History Confirmed 12/24/18] Diazepam (ANTICONVULSANT)(*) [Diastat Acudial(*)] 20 mg VT SEE INSTRUCTIONS PRN 12/24/18 [History Confirmed 12/24/18] Divalproex ER TAB(*) [Depakote ER TAB(*)] 1,500 mg PO 0800,1600,199912/24/18 [ History Confirmed 12/24/18] GuaiFENesin DM* [Robitussin DM*] 5 ml PO Q4H PRN 12/24/18 [History Confirmed 02/01] Hypromellose [Systane Overnight Therapy] 1 applic RIGHT EYE 199912/24/18 [ History Confirmed 12/24/18] Lactose-Reduced Food [Boost High Protein] 237 ml PO TID 12/24/18 [History Confirmed 12/24/18] Levothyroxine TAB* [Synthroid TAB*] 100 mcg PO 0600 12/24/18 [History Confirmed 12/24/18] Loperamide CAP* [Imodium CAP*] 2 mg PO SEE INSTRUCTIONS PRN 12/24/18 [History Confirmed 12/24/18] Magnesium Hydroxide LIQ* [Milk of Magnesia LIQ*] 30 ml PO DAILY PRN 12/24/18 [ History Confirmed 12/24/18] Metoclopramide TAB* [Reglan TAB*] 10 mg PO 0730,1130,1630,199912/24/18 [ History Confirmed 12/24/18] Nut.tx.impaired Digest Fxn [Ensure Clear] 237 ml PO TID 12/24/18 [History Confirmed 12/24/18] Omeprazole (Nf) [Prilosec (NF)] 40 mg PO 0730 12/24/18 [History Confirmed ] Ondansetron [Ondansetron Odt] 8 mg PO Q6H PRN 12/24/18 [History Confirmed ] Pancrelipase (NF) [Creon (NF)] units PO SEE INSTRUCTIONS 12/24/18 [History] Polyethylene Glycol 3350* [Miralax*] 17 gm PO 0800,199912/24/18 [History Confirmed 12/24/18] Senna TAB 8.6 mg* [Senokot 8.6 mg TAB*] 4 tab PO DAILY PRN 12/24/18 [History Confirmed 12/24/18] Sennosides [Senna Lax] 8.8 mg PO SEE INSTRUCTIONS PRN 12/24/18 [History Confirmed 12/24/18] Sodium Phosphate ADULT ENEMA* [Fleet Enema*] 1 enema VT DAILY PRN 12/24/18 [ History Confirmed 12/24/18] Vitamin THERAPEUTIC TAB* [Theragran TAB*] 1 tab PO 0800 12/24/18 [History Confirmed 12/24/18] lamoTRIgine TAB(*) [LaMICtal TAB(*)] 100 mg PO 0800,199912/24/18 [History Confirmed 12/24/18] PMH/Surg Hx/FS Hx/Imm Hx Previously Healthy: Yes - per his norm. Endocrine History: Thyroid Disease - Surgical History Surgical History: Yes Surgery Procedure, Year, and Place: colon resection for a SBO - Family History Known Family History: Negative: Hypertension, Diabetes - Social History Occupation: Disabled Lives: Assisted Alcohol Use: None Substance Use Type: None Smoking Status (MU): Never Smoked Tobacco - Immunization History Most Recent Influenza Vaccination: UNK Most Recent Tetanus Shot: 11/02/15 Most Recent Pneumonia Vaccination: unk date, but has received previously per aide Review of Systems All Other Systems Reviewed And Are Negative: Yes Constitutional: Positive: Negative ENT: Positive: Nasal Discharge Respiratory: Positive: Cough - Moist, loose cough. Psychological: Positive: Other - Acting per his norm according to the caregiver. Is Patient Immunocompromised?: No Physical Exam Triage Information Reviewed: Yes Completion Of Physical Exam Limited Due To: Other - Patient is nonverbal and not cooperative. Appearance: Well-Appearing, No Pain Distress, Thin Vital Signs: Initial Vital Signs Temp 97.9 F 12/24/18 10:07 Pulse 88 12/24/18 10:07 Resp 18 12/24/18 10:07 BP 120/65 12/24/18 10:07 Pulse Ox 94 12/24/18 10:07 Vital Signs Reviewed: Yes ENT: Positive: TMs normal - Left tympanic membranes pearly irizarry with good land aguilar and light reflex, unable to visualize the right tympanic membranes because of cerumen in ear canal. Unable to visualize pharynx because of lack of cooperation on the part of patient. Neck: Positive: Supple, Nontender, No Lymphadenopathy Respiratory: Positive: No respiratory distress, No accessory muscle use, Rhonchi - Mild rhonchi lower lobes posteriorly, no distress. Limited inspiration because of patient's cooperation. Cardiovascular: Positive: RRR, No Murmur, Pulses Normal, Brisk Capillary Refill Musculoskeletal: Positive: Other: - Patient is moving per his norm. Neurological: Positive: Other: - Patient is interacting per his norm. Psychological Exam: Normal - Patient's interacting per his norm. Respiratory Course/Dx - Course Course Of Treatment: Chest x-ray:Indication: Cough. Single frontal view of the chest performed at 1032 hours was reviewed. Comparison is made with previous exam dated October 11 , 2017. Suboptimal positioning. Elevated right hemidiaphragm is noted. Left basilar atelectasis or infiltrate is not excluded. IMPRESSION: SUBOPTIMAL POSITIONING. LEFT LOWER LOBE INFILTRATE OR LEFT BASILAR ATELECTASIS SHOULD BE CONSIDERED. At this point I believe the patient can be treated on an outpatient basis with doxycycline. The caregiver was advised and it was also put in the discharge instructions no multivitamins, dairy products, antacids or the patient's milk of magnesia 2 hours before taking doxycycline and 2 hours after taking it however take it with food. Definite follow-up in the emergency room if any fever or chills or worsening symptoms. They're to call the primary care provider for recheck over the next week. - Differential Dx/Diagnosis Provider Diagnosis: LLL pneumonia Discharge ED - Sign-Out/Discharge Documenting (check all that apply): Patient Departure All imaging exams completed and their final reports reviewed: Yes - Discharge Plan Condition: Good Disposition: HOME Prescriptions: DOXYcycline CAP(*) [DOXYcycline 100MG CAP(*)] 100 mg PO BID 10 Days #20 cap Patient Education Materials: Pneumonia (ED) Referrals: Vic Kirkland MD [Primary Care Provider] - Additional Instructions: Increase fluids. No dairy products, antacids, multivitamins or the patient's magnesium 2 hours before you take the doxycycline and 2 hours after you take the doxycycline however be sure and give it with food. Definite follow-up with primary care provider for recheck, call their office and make an appointment. Go to the emergency room if any fever, chills, shortness of breath or worsening symptoms. - Billing Disposition and Condition Condition: GOOD Disposition: Home
== END 2018-12-24 11:24 | disposition home or self-care (01) ==
LOC: UCCORT 09:38
DX: J18.1 Lobar pneumonia, unspecified organism (principal); F79 Unspecified intellectual disabilities; J34.89 Other specified disorders of nose and nasal sinuses; E07.9 Disorder of thyroid, unspecified; Z79.890 Hormone replacement therapy
CPT/HCPCS: 71045; 99212; G0463

== ENCOUNTER 2019-01-10 14:28 | Emergency (ER) | payer MEDICARE, BC, MEDICAID ==
--- OUTSIDE RECORDS SUMMARY | 2019-01-10 14:43 | XMS REPORT | Summary of Care ---
:1960 Author Organization [facility] Address [address] [facility] [place] [address] Care Team Providers Name Role Phone Vic Kirkland Primary Care Provider Reason for Visit Reason Comments Follow Up pneumonia Encounter Details Date Type Department Care Team Description 01/03/2019 [place] Pneumonia of left Practice [employer] lower lobe due to [address] [place] [address] [place] [address] (FORMERLY [facility]) (Primary Dx) [phone] Allergies No Known Allergiesdocumented as of this encounter (statuses as of 01/03/2019) Medications Medication Sig Dispensed Refills Start Date End Date Status acetaminophen Take 2 Tabs by 100 Tab 5 10/08/2011 Active (TYLENOL) 325 MG mouth EVERY SIX Oral TabIndications: HOURS NEEDED Chronic constipation for Fever. carbamide peroxide Place 3 Drops 1 Bottle 3 08/21/2014 Active (DEBROX OTIC, EAR into both ears WAX REMOVAL) 6.5 % TWO TIMES DAILY Otic Solution NEEDED (ear wax build up). Use as directed by pipe inspector. lamotrigine Take 100 mg by 0 Active (LAMICTAL) 100 MG mouth TWICE Oral Tab DAILY. BISCOLAX 10 MG INSERT 1 12 Suppository 4 04/10/2015 Active Rectal Suppos SUPPOSITORY INTO RECTUM NEEDED IF NO RESULTS 4 HOURS AFTER MOM/SENNA GIVEN (CONSTIPATION) dextromethorphan-gua Take 5 mL by 236 mL 1 02/12/2016 Active ifenesin (ROBITUSSIN mouth EVERY FOUR DM) 10-100 MG/5ML HOURS NEEDED Oral Syrup (cough). acetaminophen INSERT 1 12 Suppository 3 05/19/2016 Active (TYLENOL) 650 MG RECTALLY EVERY 6 Rectal Suppos HOURS NEEDED FOR FEVER IF UNABLE TO TAKEBY MOUTH loperamide (IMODIUM) Take 1 Cap by 20 Cap 0 06/21/2016 Active 2 MG Oral Cap mouth NEEDED for diarrhea. divalproex sodium Take 2 Tabs by 270 Tab 4 11/13/2016 Active (DEPAKOTE) 500 MG mouth THREE Oral Tab EC TIMES DAILY. Sennosides (SENNA) GIVE 15CC BY 474 mL 0 05/01/2017 Active 8.8 MG/5ML Oral MOUTH WITH 30CC Syrup OF MOM NEEDED ON IF NO BM FOR 2 DAYS BY 4:00PM (CONSTIPATION) metoclopramide TAKE 1 TABLET BY 120 Tab 6 04/13/2018 Active (REGLAN) 10 MG Oral MOUTH 4 TIMES Tab DAILY.(GERD) Multiple Vitamin TAKE ONE TABLET 30 Tab 9 05/12/2018 Active (MULTI-VITAMINS) BY MOUTH EVERY Oral Tab DAY (SUPPLEMENT) Polyethylene Glycol MIX 17GM (=20CC) 510 g 10 07/21/2018 Active 3350 (PEG 3350) Oral IN 8OZ FLUID Powder TAKE BY MOUTH TWICE A DAY (CONSTIPATION) SENNA-PLUS 8.6-50 MG TAKE 4 TABLETS 120 Tab 9 08/05/2018 Active Oral Tab BY MOUTH ONCE A DAY (CONSTIPATION) Omeprazole 40 MG TAKE 1 CAPSULE 30 Cap 4 08/31/2018 Active Oral CAPSULE DELAYED BY MOUTH 15-20 RELEASE MINUTES BEFORE BREAKFAST magnesium hydroxide Take 30 mL by 946 mL 5 09/02/2018 Active (MILK OF MAGNESIA) mouth DAILY. 400 MG/5ML Oral Suspension levothyroxine TAKE ONE TABLET 30 Tab 4 10/28/2018 Active (SYNTHROID\\UNITHROID BY MOUTH BEFORE ) 100 MCG Oral Tab BREAKFAST (THYROID) diazePAM (DIASTAT Place 20 mg per 3 Each 0 11/01/2018 Active ACUDIAL) 20 MG rectum NEEDED Rectal Gel (two or more seizures in 24 hours). Pancrelipase, Take 1 Cap by 90 Cap 3 12/03/2018 Active Fza-Qgbr-Ddlf, 24756 mouth THREE units Oral CAPSULE TIMES DAILY WITH ENTERIC COATED MEALS. PARTICLESIndications : Chronic pancreatitis, unspecified pancreatitis type (HCC) White Place in right 0 Active Petrolatum-Mineral eye DAILY. Oil (SYSTANE NIGHTTIME) Ophthalmic Ointment Nutritional Take 1 Can by 90 Can 4 12/10/2018 Active Supplements (BOOST mouth THREE HIGH PROTEIN) Oral TIMES DAILY. Liquid Nutritional Take 1 Can by 90 Bottle 5 12/10/2018 Active Supplements (ENSURE mouth THREE CLEAR) Oral Liquid TIMES DAILY. ondansetron (ZOFRAN Take 1 Tab by 60 Tab 11 12/22/2018 Active ODT) 8 MG Oral mouth EVERY SIX TABLET DISPERSIBLE HOURS NEEDED (nausea). 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 GERD (gastroesophageal reflux disease) 10/08/2011 documented as of this encounter (statuses as of 01/03/2019) Resolved Problems Problem Noted Date Resolved Date Gastritis 11/24/2018 12/10/2018 Acute on chronic pancreatitis 11/24/2018 12/10/2018 documented as of this encounter (statuses as of 01/03/2019) Immunizations Name Administration Dates Next Due Influenza (IM) Preservative Free 12/14/2017, 01/05/2017, 12/09/2013 TDAP Vaccine 11/02/2015 documented as of this encounter Social History Tobacco Use Types Packs/Day Years Used Date Never Smoker Smokeless Tobacco: Never Used Alcohol Use Drinks/Week oz/Week Comments No Sex Assigned at Date Recorded Not on file Job Start Date Occupation Industry Not on file Not on file Not on file Travel History Travel Start Travel End No recent travel history available. documented as of this encounter Last Filed Vital Signs Vital Sign Reading Time Taken Comments Blood Pressure 98/54 01/03/2019 8:54 AM EDT Pulse 70 01/03/2019 8:54 AM EDT Temperature 36.4 01/03/2019 8:54 AM EDT C (97.5 F) Respiratory Rate - - Oxygen Saturation - - Inhaled Oxygen Concentration - - Weight - - Height - - Body Mass Index - - documented in this encounter Patient Instructions Patient InstructionsKaren Nevarez FNP - 01/03/2019 8:40 AM EDTFollow up as needed documented in this encounter Progress Notes Karen Nevarez FNP - 01/03/2019 8:40 AM EDT PATIENT: Magdaleno Urbina : 1960 DATE OF SERVICE: 01/03/2019 CHIEF COMPLAINT: Chief Complaint Patient presents with Follow Up pneumonia Subjective HISTORY OF PRESENT ILLNESS: Magdaleno Urbina is a 58-y.o. male. HPI Here with staff - pt was seen at on 12/24/18 due to URI sx. Reports reviewed - Pt Dx pneumonia - CXR indicated LLL. Pt started on Doxy - here for follow up today. Per staff pt appears improved - notcoughing Past Medical History: Diagnosis Date GERD (gastroesophageal reflux disease) Seizures (HCC) History reviewed. No pertinent family history. Current Outpatient Medications Medication Sig acetaminophen (TYLENOL) 325 MG Oral Tab Take 2 Tabs by mouth EVERY SIX HOURS NEEDED for Fever. acetaminophen (TYLENOL) 650 MG Rectal Suppos INSERT 1 RECTALLY EVERY 6 HOURS NEEDED FOR FEVER IF UNABLE TO TAKEBY MOUTH BISCOLAX 10 MG Rectal Suppos INSERT 1 SUPPOSITORY INTO RECTUM NEEDED IF NO RESULTS 4 HOURSAFTER MOM/SENNA GIVEN (CONSTIPATION) carbamide peroxide (DEBROX OTIC, EAR WAX REMOVAL) 6.5 % Otic Solution Place 3 Drops into bothears TWO TIMES DAILY NEEDED (ear wax build up). Use as directed by pipe inspector. dextromethorphan-guaifenesin (ROBITUSSIN DM) 10-100 MG/5ML Oral Syrup Take 5 mL by mouth EVERY FOUR HOURS NEEDED (cough). diazePAM (DIASTAT ACUDIAL) [address] 20 mg per rectum NEEDED (two or more seizures in 24 hours). divalproex sodium (DEPAKOTE) 500 MG Oral Tab EC Take 2 Tabs by mouth THREE TIMES DAILY. lamotrigine (LAMICTAL) 100 MG Oral Tab Take 100 mg by mouth TWICE DAILY. levothyroxine (SYNTHROID\\UNITHROID) 100 MCG Oral Tab TAKE ONE TABLET BY MOUTH BEFORE BREAKFAST (THYROID) loperamide (IMODIUM) 2 MG Oral Cap Take 1 Cap by mouth NEEDED for diarrhea. magnesium hydroxide (MILK OF MAGNESIA) 400 MG/5ML Oral Suspension Take 30 mL by mouth DAILY. metoclopramide (REGLAN) 10 MG Oral Tab TAKE 1 TABLET BY MOUTH 4 TIMES DAILY.(GERD) Multiple Vitamin (MULTI-VITAMINS) Oral Tab TAKE ONE TABLET BY MOUTH EVERY DAY (SUPPLEMENT) Nutritional Supplements (BOOST HIGH PROTEIN) Oral Liquid Take 1 Can by mouth THREE TIMES DAILY. Nutritional Supplements (ENSURE CLEAR) Oral Liquid Take 1 Can by mouth THREE TIMES DAILY. Omeprazole 40 MG Oral CAPSULE DELAYED RELEASE TAKE 1 CAPSULE BY MOUTH 15- 20 MINUTES BEFORE BREAKFAST ondansetron (ZOFRAN ODT) 8 MG Oral TABLET DISPERSIBLE Take 1 Tab by mouth EVERY SIX HOURS NEEDED (nausea). Pancrelipase, Xjw-Ozbm-Qolb, 56004 units Oral CAPSULE ENTERIC COATED PARTICLES Take 1 Cap by mouth THREE TIMES DAILY WITH MEALS. Polyethylene Glycol 3350 (PEG 3350) Oral Powder MIX 17GM (=20CC) IN 8OZ FLUID TAKE BY MOUTH TWICE A DAY (CONSTIPATION) SENNA-PLUS 8.6-50 MG Oral Tab TAKE 4 TABLETS BY MOUTH ONCE A DAY ( CONSTIPATION) Sennosides (SENNA) 8.8 MG/5ML Oral Syrup GIVE 15CC BY MOUTH WITH 30CC OF MOM NEEDED ON IF NO BM FOR 2 DAYS BY 4:00PM (CONSTIPATION) White Petrolatum-Mineral Oil (SYSTANE NIGHTTIME) Ophthalmic Ointment Place in right eye DAILY. No current facility-administered medications for this visit. No Known Allergies Social History Socioeconomic History Marital status: Single Spouse name: Not on file Number of children: Not on file Years of education: Not on file Highest education level: Not on file Occupational History Not on file Social Needs Financial resource strain: Not on file Food insecurity: Worry: Not on file Inability: Not on file Transportation needs: Medical: Not on file Non-medical: Not on file Tobacco Use Smoking status: Never Smoker Smokeless tobacco: Never Used Substance and Sexual Activity Alcohol use: No Drug use: No Sexual activity: Never Lifestyle Physical activity: Days per week: Not on file Minutes per session: Not on file Stress: Not on file Relationships Social connections: Talks on phone: Not on file Gets together: Not on file Attends sabianism service: Not on file Active member of club or organization: Not on file Attends meetings of clubs or organizations: Not on file Relationship status: Not on file Intimate partner violence: Fear of current or ex partner: Not on file Emotionally abused: Not on file Physically abused: Not on file Forced sexual activity: Not on file Other Topics Concern Back Care Not Asked Bike Helmet Not Asked Blood Transfusions Not Asked Caffeine Concern Not Asked Exercise No Hobby Hazards Not Asked International Travel Not Asked Service Not Asked Occupational Exposure Not Asked Seat Belt Not Asked Self-Exams Not Asked Sleep Concern Not Asked Special Diet No Stress Concern No Weight Concern No Social History Narrative Lives in senior living in [facility] Grew up in [facility] area REVIEW OF SYSTEMS: Review of Systems Unable to perform ROS: Mental acuity Constitutional: Negative for fever. Objective PHYSICAL EXAM: VITALS: BP 98/54 | Pulse 70 | Temp 97.5 F (36.4 C) (Tympanic) There is no height or weight on file to calculate BMI. Physical Exam Vitals signs reviewed. Cardiovascular: Rate and Rhythm: Normal rate and regular rhythm. Pulmonary: Effort: Pulmonary effort is normal. Breath sounds: No wheezing, rhonchi or rales. Skin: General: Skin is warm and dry. Capillary Refill: Capillary refill takes less than 2 seconds. Neurological: Mental Status: He is alert. ASSESSMENT / IMPRESSION: ICD-9-CM ICD-10-CM 1. Pneumonia of left lower lobe due to infectious organism (HCC) 486 J18.1 resolved Plan Follow up as needed Author: DANIELLA Hunt 01/03/2019 09:05 documented in this encounter Plan of Treatment Health Maintenance Due Date Last Done Comments ZOSTER IMMUNIZATION SERIES 2009 (1 of 2) MEDICARE ANNUAL WELLNESS 10/04/2014 10/04/2013, 09/29/2012 VISIT INFLUENZA VACCINE (#1) 2018 12/14/2017, 01/05/2017, 12/09/2013 COLONOSCOPY SCREENING 05/30/2021 05/30/2016, 05/30/2016, 03/07/2016, Additional history exists LIPID DISORDER SCREENING 11/13/2021 11/13/2016 DEPRESSION SCREENING 01/03/2022 12/29/2016 Postponed from 12/29/2017 (Other) HPV IMMUNIZATION SERIES Aged Out No longer eligible based on patient's age to complete this topic MENINGOCOCCAL VACCINE IMM Aged Out No longer eligible based on patient's age to complete this topic PNEUMOCOCCAL 0-64 YRS Aged Out No longer eligible based on patient's age to complete this topic documented as of this encounter Implants Implanted Type Area Paper Reclaiming Machine Operator Device Shelf Model / Identifier Expiration Serial / Date Lot Resolution 360 Clip N/A: iRezQ [id number] / Implanted: Qty: 1 on 11/16/2018 by Kirt Conner MD at [facility] [employer] / [id number] Description:FROM GI GI WILL CHARGE FOR THIS Resolution 360 N/A: Stomach Notorious [id number] / Implanted: Qty: 1 on 11/16/2018 by Kirt Conner MD at [facility] / [id number] Description:FROM GI GI WILL CHARGE FOR THIS documented as of this encounter Results Not on filedocumented in this encounter Visit Diagnoses Diagnosis Pneumonia of left lower lobe due to infectious organism (HCC) - Primary documented in this encounter Additional Health Concerns Infection Noted Time Resolved Time MRSA - Colonization 11/16/2018 10:13 AM EDT documented as of this encounter Insurance Payer Benefit Plan / Subscriber ID Effective Dates Phone Address Type Group MEDICARE MEDICARE PART A xxxxxxxxxxx 1998-Present Medicare & B [facility] [facility] x[facility]xxx 2018-Present [employer] PPO MEDICAID [facility] xxxxxxxx 2016-Present Medicaid [place] MEDICAID Guarantor Name Account Type Relation to Date of Phone Billing Patient Address Magdaleno Urbina Personal/Family 1960 [address] (Home) [place], [place] [phone] [id number] (Work) documented as of this encounter Advance Directives Code Status Date Activated Date Inactivated Comments Full Code 11/16/2018 11:32 AM 11/30/2018 7:27 AM Does the patient have decision No MOTHER consents making capacity? Order was discussed with: Unable to determine at this time I discussed all options and Full Code patient/surrogate requested and agreed to:"
--- OUTSIDE RECORDS SUMMARY | 2019-01-10 14:43 | XMS REPORT | Summary of Care ---
:1960 Author Organization [facility] Address [address] [facility] [place] [address] Care Team Providers Name Role Phone Vic Kirkland Primary Care Provider Reason for Visit Reason Comments Physical P. presents for annual physical. Staff wants to discuss starting pt. on Boost & Ensure to increase weight. 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 Chronic constipation carbamide peroxide Place 3 Drops 1 Bottle 3 Active (DEBROX OTIC, EAR into both ears 5 WAX REMOVAL) 6.5 % TWO TIMES DAILY Otic Solution NEEDED (ear wax build up). Use as directed by drawer upfitter. lamotrigine Take 100 mg by 0 Active (LAMICTAL) 100 MG mouth TWICE Oral Tab DAILY. BISCOLAX 10 MG INSERT 1 12 Suppository 4 Active Rectal Suppos SUPPOSITORY 6 INTO RECTUM NEEDED IF NO RESULTS 4 HOURS AFTER MOM/SENNA GIVEN (CONSTIPATION) dextromethorphan-g Take 5 mL by 236 mL 1 Active uaifenesin mouth EVERY 6 (ROBITUSSIN DM) FOUR HOURS 10-100 MG/5ML Oral NEEDED (cough). Syrup acetaminophen INSERT 1 12 Suppository 3 Active (TYLENOL) 650 MG RECTALLY EVERY 7 Rectal Suppos 6 HOURS NEEDED FOR FEVER IF UNABLE TO TAKEBY MOUTH loperamide Take 1 Cap by 20 Cap 0 Active (IMODIUM) 2 MG mouth NEEDED 7 Oral Cap for diarrhea. divalproex sodium Take 2 Tabs by 270 Tab 4 Active (DEPAKOTE) 500 MG mouth THREE 7 Oral Tab EC TIMES DAILY. Sennosides (SENNA) GIVE 15CC BY 474 mL 0 Active 8.8 MG/5ML Oral MOUTH WITH 30CC 8 Syrup OF MOM NEEDED ON IF NO BM FOR 2 DAYS BY 4:00PM (CONSTIPATION) metoclopramide TAKE 1 TABLET 120 Tab 6 Active (REGLAN) 10 MG BY MOUTH 4 9 Oral Tab TIMES DAILY.(GERD) Multiple Vitamin TAKE ONE TABLET 30 Tab 9 Active (MULTI-VITAMINS) BY MOUTH EVERY 9 Oral Tab DAY (SUPPLEMENT) Polyethylene MIX 17GM 510 g 10 Active Glycol 3350 (PEG (=20CC) IN 8OZ 9 3350) Oral Powder FLUID TAKE BY MOUTH TWICE A DAY (CONSTIPATION) SENNA-PLUS 8.6-50 TAKE 4 TABLETS 120 Tab 9 Active MG Oral Tab BY MOUTH ONCE A 9 DAY (CONSTIPATION) Omeprazole 40 MG TAKE 1 CAPSULE 30 Cap 4 Active Oral CAPSULE BY MOUTH 15-20 9 DELAYED RELEASE MINUTES BEFORE BREAKFAST magnesium Take 30 mL by 946 mL 5 Active hydroxide (MILK OF mouth DAILY. 9 MAGNESIA) 400 MG/5ML Oral Suspension levothyroxine TAKE ONE TABLET 30 Tab 4 Active (SYNTHROID\\UNITHRO BY MOUTH BEFORE 9 ID) 100 MCG Oral BREAKFAST Tab (THYROID) diazePAM (DIASTAT Place 20 mg per 3 Each 0 08/19/201 Active ACUDIAL) 20 MG rectum 9 Rectal Gel NEEDED (two or more seizures in 24 hours). ondansetron Take 1 Tab by 30 Tab 11 Active (ZOFRAN ODT) 8 MG mouth EVERY SIX 9 Oral TABLET HOURS NEEDED DISPERSIBLE (nausea). Pancrelipase, Take 1 Cap by 90 Cap 3 Active Iaj-Fzph-Qtyl, mouth THREE 9 82976 units Oral TIMES DAILY CAPSULE ENTERIC WITH MEALS. COATED PARTICLESIndicatio ns: Chronic pancreatitis, unspecified pancreatitis type (HCC) White Place in right 0 Active Petrolatum-Mineral eye DAILY. Oil (SYSTANE NIGHTTIME) Ophthalmic Ointment Nutritional Take 1 Can by 90 Can 4 Active Supplements (BOOST mouth THREE 9 HIGH PROTEIN) Oral TIMES DAILY. Liquid Nutritional Take 1 Can by 90 Bottle 5 Active Supplements mouth THREE 9 (ENSURE CLEAR) TIMES DAILY. Oral Liquid White Place in right 0 Discontinued Petrolatum-Mineral eye DAILY. 019 Oil (LUBRIFRESH P.M. OP) documented as of this encounter (statuses as of 12/10/2018) Active Problems Problem Noted Date Other chronic pancreatitis 11/16/2018 Recurrent aspiration pneumonia 07/13/2018 Streptococcus bovis infection 03/20/2016 History of dysphagia 03/20/2016 Regurgitation and rechewing 12/07/2012 Other specified hypothyroidism 01/22/2012 Seizure disorder 10/08/2011 Overview: Neurology [place] [facility] [place] [facility] [phone] Chronic constipation 10/08/2011 Profound intellectual disability 10/08/2011 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 GERD (gastroesophageal reflux disease) 10/08/2011 documented as of this encounter (statuses as of 12/10/2018) Resolved Problems Problem Noted Date Resolved Date Gastritis 11/24/2018 12/10/2018 Acute on chronic pancreatitis 11/24/2018 12/10/2018 documented as of this encounter (statuses as of 12/10/2018) Immunizations Name Administration Dates Next Due Influenza (IM) Preservative Free 01/05/2017, 12/09/2013 TDAP Vaccine 11/02/2015 documented as [...] Sign Reading Time Taken Comments Blood Pressure 112/74 12/10/2018 11:35 AM EDT Pulse 66 12/10/2018 11:35 AM EDT Temperature - - Respiratory Rate - - Oxygen Saturation - - Inhaled Oxygen Concentration - - Weight 48 kg (105 lb 12.8 oz) 12/10/2018 11:35 AM EDT Height 160 cm (5' 3") 12/10/2018 11:35 AM EDT Body Mass Index 18.74 12/10/2018 11:35 AM EDT documented in this encounter Patient Instructions Patient InstructionsVic Kirkland MD - 12/10/2018 11:20 AM EDTAgree with liquid supplements these were sent into pharmacy Blood test thyroid seizure led levels albumin and complete blood count and b12 documented in this encounter Progress Notes Vic Kirkland MD - 12/10/2018 11:20 AM EDT PATIENT: Magdaleno Urbina : 1960 DATE OF SERVICE: 12/10/2018 CHIEF COMPLAINT: Chief Complaint Patient presents with Physical P. presents for annual physical. Staff wants to discuss starting pt. on Boost & Ensure to increase weight. Subjective HISTORY OF PRESENT ILLNESS: Magdaleno Urbina is a 58-y.o. male. HPI Here for annual re assessment and medication review Aide notes ongoing weight loss 40 lb in 2-3 year and 15 lb this year reduced po intake no new swallowing or pneumonia symptoms He has order for AED drug levels from neurology He had dietitian consult and she asks for ensure and boost cans three times daily These orders wereplaced Patient Active Problem List Diagnosis Seizure disorder (HCC) Chronic constipation Profound intellectual disability Spastic quadriplegia (HCC) GERD (gastroesophageal reflux disease) Other specified hypothyroidism Regurgitation and rechewing Streptococcus bovis infection History of dysphagia Recurrent aspiration pneumonia (HCC) Other chronic pancreatitis (HCC) No family history on file. Current Outpatient Medications Medication Sig acetaminophen (TYLENOL) [...] wax build up). Use as directed by drawer upfitter. dextromethorphan-guaifenesin (ROBITUSSIN DM) 10-100 MG/5ML Oral Syrup [...] mouth EVERY SIX HOURS NEEDED (nausea). Pancrelipase, Zeh-Pymm-Ihwu, 08534 units Oral CAPSULE ENTERIC COATED PARTICLES Take [...] file Gets together: Not on file Attends yarsanism service: Not on file Active member of [...] Concern No Social History Narrative Lives in nursing home in [facility] Grew up in [facility] area ROS no other gastro-intestinal symptoms no cardiovascular symptoms Objective PHYSICAL EXAM: VITALS: BP 112/74 | Pulse 66 | Ht 5' 3" (1.6 m) | Wt 105 lb 12.8 oz (48 kg) | BMI 18.74 kg/m Body mass index is 18.74 kg/m. Physical Exam The abdomen is soft without tenderness, guarding, mass, rebound or organomegaly. Bowel sounds are normal. No CVA tenderness or inguinal adenopathy noted. I spent 25 minutes with the patient, greater than half of this in direct face to face counseling addressing the current condition and the plan of care. ASSESSMENT / IMPRESSION: ICD-9-CM ICD-10-CM 1. Medication monitoring encounter proton pump inhibitor and AED medications V58.83 Z51.81 VITAMIN B12 / FOLATE CBC WITH DIFFERENTIAL COMPREHENSIVE METABOLIC PANEL 2. Other specified hypothyroidism continue current medications check tsh 244.8 E03.8 THYROID STIMULATING HORMONE 3. Moderate protein-calorie malnutrition (HCC) nutritional supplements started 263.0 E44.0 4. Recurrent aspiration pneumonia (HCC) 507.0 J69.0 5. Regurgitation and rechewing 787.03 R11.10 6. Cursive epilepsy (HCC) 345.80 G40.309 LAMOTRIGNE LEVEL VALPROIC ACID PHENYTOIN LEVEL LIVER FUNCTION PROFILE CBC WITH DIFFERENTIAL LAMOTRIGNE LEVEL VALPROIC ACID PHENYTOIN LEVEL BILIRUBIN, DIRECT CANCELED: LIVER FUNCTION PROFILE CANCELED: CBC WITH DIFFERENTIAL 7. Encounter for therapeutic drug monitoring V58.83 Z51.81 LAMOTRIGNE LEVEL VALPROIC ACID PHENYTOIN LEVEL LIVER FUNCTION PROFILE CBC WITH DIFFERENTIAL LAMOTRIGNE LEVEL VALPROIC ACID PHENYTOIN LEVEL BILIRUBIN, DIRECT CANCELED: LIVER FUNCTION PROFILE CANCELED: CBC WITH DIFFERENTIAL Patient Instructions Agree with liquid supplements these were sent into pharmacy Blood test thyroid seizure led levels albumin and complete blood count and b12 : Vic Kirkland MD 12/10/2018 13:09 documented in this encounter Plan of Treatment Date Type Specialty Care Team Description 01/03/2019 Office Visit Gastroenterology Ange Russell, CHILD PSYCHOLOGY TEACHER [address] [address] [phone] Name Type Priority Associated Diagnoses Date/Time THYROID STIMULATING Lab Routine Other specified 12/10/2018 12:43 PM HORMONE hypothyroidism EDT VITAMIN B12 / FOLATE Lab Routine Medication monitoring 12/10/2018 12:43 PM encounter EDT CBC WITH DIFFERENTIAL Lab Routine Medication monitoring 12/10/2018 12:43 PM encounter EDT COMPREHENSIVE METABOLIC Lab Routine Medication monitoring 12/10/2018 12:43 PM PANEL encounter EDT LAMOTRIGNE LEVEL Lab Routine Cursive epilepsy (HCC) 12/10/2018 12:43 PM Encounter for therapeutic EDT drug monitoring VALPROIC ACID Lab Routine Cursive epilepsy (HCC) 12/10/2018 12:43 PM Encounter for therapeutic EDT drug monitoring PHENYTOIN LEVEL Lab Routine Cursive epilepsy (HCC) 12/10/2018 12:43 PM Encounter for therapeutic EDT drug monitoring BILIRUBIN, DIRECT Lab Routine Cursive epilepsy (HCC) 12/10/2018 12:43 PM Encounter for therapeutic EDT drug monitoring Name Type Priority Associated Diagnoses Order Schedule LAMOTRIGNE LEVEL Lab Routine Cursive epilepsy (HCC) Expected: 12/10/2018 Encounter for therapeutic (Approximate), Expires: drug monitoring 12/11/2019 VALPROIC ACID Lab Routine Cursive epilepsy (HCC) Expected: 12/10/2018 Encounter for therapeutic (Approximate), Expires: drug monitoring 12/11/2019 PHENYTOIN LEVEL Lab Routine Cursive epilepsy (HCC) Expected: 12/10/2018 Encounter for therapeutic (Approximate), Expires: drug monitoring 12/11/2019 Health Maintenance Due Date Last Done Comments ZOSTER IMMUNIZATION SERIES 2009 (1 of 2) MEDICARE ANNUAL WELLNESS 10/04/2014 10/04/2013, 09/29/2012 VISIT DEPRESSION SCREENING 12/29/2017 12/29/2016 INFLUENZA VACCINE (#1) 2018 01/05/2017, 12/09/2013 COLONOSCOPY SCREENING 05/30/2021 05/30/2016, 05/30/2016, 03/07/2016, Additional history exists LIPID DISORDER SCREENING 11/13/2021 11/13/2016 HPV IMMUNIZATION SERIES Aged Out No longer eligible based on patient's age to complete this topic MENINGOCOCCAL VACCINE IMM Aged Out No longer eligible based on patient's age to complete this topic PNEUMOCOCCAL 0-64 YRS Aged Out No longer eligible based on patient's age to complete this topic documented as of this encounter Implants Implanted Type Area Ham Boner Device Shelf Model / Identifier Expiration Serial / Date Lot Resolution 360 Clip N/A: Simmr [id number] / Implanted: Qty: 1 on 11/16/2018 by Kirt Conner MD at [facility] [employer] / [id number] Description:FROM GI GI WILL CHARGE FOR THIS Resolution 360 N/A: Stomach [employer] [id number] / Implanted: Qty: 1 on 11/16/2018 by Kirt Conner MD at [facility] / [id number] Description:FROM GI GI WILL CHARGE FOR THIS documented as of this encounter Results Not on filedocumented in this encounter Visit Diagnoses Diagnosis Medication monitoring encounter - Primary Encounter for therapeutic drug monitoring Other specified hypothyroidism Moderate protein-calorie malnutrition (HCC) Malnutrition of moderate degree Recurrent aspiration pneumonia (HCC) Pneumonitis due to inhalation of food or vomitus Regurgitation and rechewing Vomiting alone Cursive epilepsy (HCC) Other forms of epilepsy and recurrent seizures without mention of intractable epilepsy Encounter for therapeutic drug monitoring documented in this encounter Additional Health Concerns Infection Noted Time Resolved Time MRSA - Colonization 11/16/2018 10:13 AM EDT documented as of this encounter Insurance Payer Benefit Plan / Subscriber ID Effective Dates Phone Address Type Group MEDICARE MEDICARE PART A xxxxxxxxxxx 1998-Present Medicare & B [employer]BS EXCELLUS BLUE xxxxxxxxxxxx 2018-Present [employer] PPO MEDICAID [facility] xxxxxxxx 2016-Present [place] Guarantor Name Account Type Relation to Date of Phone Billing Patient Address Magdaleno Urbina Personal/Family [phone]Home) [place], [place] [phone] (Work) documented as of this encounter Advance Directives Code Status Date Activated Date Inactivated Comments Full Code 11/16/2018 11:32 AM 11/30/2018 7:27 AM Does the patient have decision No MOTHER consents making capacity? Order was discussed with: Unable to determine at this time I discussed all options and Full Code patient/surrogate requested and agreed to:
--- OUTSIDE RECORDS SUMMARY | 2019-01-10 14:44 | XMS REPORT | Summary of Care ---
:1960 Author Organization [facility] Address [address] [facility] [place] [address] Care Team Providers Name Role Phone Vic Kirkland MD Primary Care Provider Reason for Visit Reason Comments Follow-up Follow-up to recent EUS. Encounter Details Date Type Department Care Team Description 12/03/2018 Office Visit Home Russell, Chronic pancreatitis, unspecified pancreatitis type (HCC) (Primary Dx); Gastroenterology/Hepa Ange Cabrera NP Disorders of gallbladder, biliary tract and pancreas in diseases classified elsewhere ; tology 1 [facility] Hypothyroidism, unspecified type [address] [facility] [place] [address] [place] [address] [phone] Allergies No Known Allergiesdocumented as of this encounter (statuses as of 12/03/2018) Medications Medication Sig Dispensed Refills Start End [...] wax build up). Use as directed by masking machine operator. lamotrigine Take 100 mg by 0 Active [...] Place 20 mg per 3 Each 0 Active ACUDIAL) 20 MG rectum 9 Rectal Gel NEEDED (two or more seizures in [address] in right 0 Active Petrolatum-Mineral eye DAILY. Oil (LUBRIFRESH P.M. OP) ondansetron Take 1 Tab by 30 Tab 11 Active (ZOFRAN ODT) 8 MG mouth EVERY SIX 9 Oral TABLET HOURS NEEDED DISPERSIBLE (nausea). Pancrelipase, Take 1 Cap by 90 Cap 3 Active Fqk-Sblo-Vgvl, mouth THREE 9 80013 units Oral TIMES DAILY CAPSULE ENTERIC WITH MEALS. COATED PARTICLESIndicatio ns: Chronic pancreatitis, unspecified pancreatitis type (HCC) metoclopramide TAKE 1 TABLET 120 Tab 4 Discontinued (REGLAN) 10 MG BY MOUTH 4 9 019 Oral Tab TIMES DAILY.(GERD) documented as of this encounter (statuses as of 12/03/2018) Active Problems Problem Noted Date Gastritis 11/24/2018 Acute on chronic pancreatitis 11/24/2018 Other chronic pancreatitis 11/16/2018 Recurrent aspiration pneumonia 07/13/2018 Streptococcus bovis infection 03/20/2016 History of dysphagia 03/20/2016 Regurgitation and rechewing 12/07/2012 Other specified hypothyroidism 01/22/2012 Seizure disorder 10/08/2011 Overview: Neurology [facility] Dr Martinez [facility] [phone] Chronic constipation 10/08/2011 Profound intellectual disability 10/08/2011 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 GERD (gastroesophageal reflux disease) 10/08/2011 documented as of this encounter (statuses as of 12/03/2018) Immunizations Name Administration Dates Next Due Influenza [...] Sign Reading Time Taken Comments Blood Pressure 92/66 12/03/2018 9:43 AM EDT Pulse 66 12/03/2018 9:43 AM EDT Temperature 35.3 12/03/2018 9:43 AM EDT C (95.6 F) Respiratory Rate - - Oxygen Saturation - - Inhaled Oxygen Concentration - - Weight 49 kg (108 lb) 12/03/2018 9:43 AM EDT Height 160 cm (5' 3") 12/03/2018 9:43 AM EDT Body Mass Index 19.13 12/03/2018 9:43 AM EDT documented in this encounter Patient Instructions Patient InstructionsAnge Russell NP - 12/03/2018 9:20 AM EDT1. Start Creon with meals as directed 2. Continue to offer small low fat meals throughout the day and adequate water 3. Labs today 4. Follow up in 2 weeks via telephone, to discuss the need to increase the Creon dose based on staffobservation 5. Follow up in 1 month Thank you for choosing the [facility] for your needs today! -Ange Russell N.P. , Please call if you need to cancel or change your appt. time. Thank you for choosing [facility] for your health care needs, and for consulting with [facility] today. You may receive a survey following this visit, or after an upcoming hospital stay. As easy as it is to feel overloaded with surveys, we are required to send them out randomly and they do provide important feedback so that we may serve your needs in the best way. Please do take the few minutes required to complete the survey if you receive one. We get them too, after seeing the doctor, and they only take a few minutes to complete. documented in this encounter Progress Notes Ange Russell NP - 12/03/2018 9:20 AM EDT PATIENT: Magdaleno Urbina : 1960 DATE OF SERVICE: 12/03/2018 REFERRING PRACTITIONER: Luis PRIMARY CARE PROVIDER: Vic Kirkland CHIEF COMPLAINT: Chief Complaint Patient presents with Follow-up Follow-up to recent EUS. Subjective HISTORY OF PRESENT ILLNESS: Magdaleno Urbina is a 58-y.o. male who presents for follow-up of recent EUS. Patient found to have chronic pancreatitis, no lesions or mass identified. Staff reports patient continues to have vomiting, and gagging with meals. Is finding relief from Zofran. There has been diarrhea and 20lbs of weight loss in the past 8 Months. There has been no melena, hematemesis, hematochezia, constipation, diarrhea, jaundice, fevers, chills, night sweats, easy bruising, chest pain, shortness of breath, dysuria, hematuria, pyuria, joint pains, acholic stools, dark urine or systemic pruritis. Current Outpatient Medications Medication Sig acetaminophen (TYLENOL) [...] wax build up). Use as directed by masking machine operator. dextromethorphan-guaifenesin (ROBITUSSIN DM) 10-100 MG/5ML Oral Syrup [...] ONE TABLET BY MOUTH EVERY DAY (SUPPLEMENT) Omeprazole 40 MG Oral CAPSULE DELAYED RELEASE TAKE 1 CAPSULE BY MOUTH 15- 20 MINUTES BEFORE BREAKFAST ondansetron (ZOFRAN ODT) 8 MG Oral TABLET DISPERSIBLE Take 1 Tab by mouth EVERY SIX HOURS NEEDED (nausea). Pancrelipase, Uvo-Rrnp-Crwm, 62712 units Oral CAPSULE ENTERIC COATED PARTICLES Take [...] DAYS BY 4:00PM (CONSTIPATION) White Petrolatum-Mineral Oil (LUBRIFRESH P.M. OP) Place in right eye DAILY. No current facility-administered medications for this visit. No Known Allergies REVIEW OF SYSTEMS: All remaining review of systems was negative except for as noted in the history of present illness/subjective. Objective PHYSICAL EXAMINATION: VITALS: BP 92/66 | Pulse 66 | Temp (!) 95.6 F (35.3 C) | Ht 5' 3" ( 1.6 m) | Wt 108 lb (49 kg) | BMI 19.13 kg/m Body mass index is 19.13 kg/ m. GENERAL: alert, appears older than stated age, WC dependent. LUNGS: clear to auscultation bilaterally. HEART: regular rhythm, no murmurs, no gallops, no rubs. ABDOMEN: general exam: soft, non-tender, non-distended,normal active bowel sounds RECTAL: exam deferred. IMPRESSION: ICD-9-CM ICD-10-CM 1. Chronic pancreatitis, unspecified pancreatitis type (HCC) 577.1 K86.1 Pancrelipase, Hfq-Pjbz-Lsps, 01524 units Oral CAPSULE ENTERIC COATED PARTICLES VITAMIN D 25 HYDROXY (DOMINGUEZ) CBC WITH DIFFERENTIAL COMPREHENSIVE METABOLIC PANEL LIPASE 2. Disorders of gallbladder, biliary tract and pancreas in diseases classified elsewhere [id number] K87 VITAMIN D 25 HYDROXY (DOMINGUEZ) 3. Hypothyroidism, unspecified type 244.9 E03.9 THYROID STIMULATING HORMONE Plan PLAN: If no improvement in pain, and vomiting with creon will consider low dose tricyclic such as Elavil for pain control. Patient Instructions 1. Start Creon with meals as directed 2. Continue to offer small low fat meals throughout the day and adequate water 3. Labs today 4. Follow up in 2 weeks via telephone, to discuss the need to increase the Creon dose based on staffobservation 5. Follow up in 1 month Thank you for choosing the [facility] for your needs today! -Ange Russell N.P. , Please call if you need to cancel or change your appt. time. Thank you for choosing [facility] for your health care needs, and for consulting with [facility] today. You may receive a survey following this visit, or after an upcoming hospital stay. As easy as it is to feel overloaded with surveys, we are required to send them out randomly and they do provide important feedback so that we may serve your needs in the best way. Please do take the few minutes required to complete the survey if you receive one. We get them too, after seeing the doctor, and they only take a few minutes to complete. Author: Ange Russell NP 12/03/2018 10:08 documented in this encounter Plan of Treatment Date Type Specialty Care Team Description 01/03/2019 Office Visit Gastroenterology Ange Russell NP [address] [facility] [place] [address] [phone] Name Type Priority Associated Diagnoses Order Schedule VITAMIN D 25 HYDROXY Lab Routine Disorders of gallbladder, Expected: 2018 (ANGELICA) biliary tract and (Approximate), pancreas in diseases Expires: 07/01/2019 classified elsewhere Chronic pancreatitis, unspecified pancreatitis type (HCC) CBC WITH DIFFERENTIAL Lab Routine Chronic pancreatitis, Expected: 2018 unspecified pancreatitis (Approximate), type (HCC) Expires: 12/17/2018 COMPREHENSIVE METABOLIC Lab Routine Chronic pancreatitis, Expected: 2018 PANEL unspecified pancreatitis (Approximate), type (HCC) Expires: 12/04/2019 LIPASE Lab Routine Chronic pancreatitis, Expected: 12/03/2018 unspecified pancreatitis (Approximate), type (HCC) Expires: 12/17/2018 THYROID STIMULATING Lab Routine Hypothyroidism, Expected: 12/03/2018 HORMONE unspecified type (Approximate), Expires: 12/17/2018 Health Maintenance Due Date Last Done Comments [...] of this encounter Implants Implanted Type Area Magnetic Prospecting Operator Device Shelf Model / Identifier Expiration Serial / Date Lot Resolution 360 Clip N/A: [employer] / [employer] [id number] / Implanted: Qty: 1 on 11/16/2018 by Kirt Conner MD at [facility] [employer] / [id number] Description:FROM GI GI WILL CHARGE FOR THIS Resolution 360 N/A: Stomach [employer] [id number] / Implanted: Qty: 1 on 11/16/2018 by Kirt Conner MD at [facility] / [id number] Description:FROM GI GI WILL CHARGE FOR THIS documented as of this encounter Results Not on filedocumented in this encounter Visit Diagnoses Diagnosis Chronic pancreatitis, unspecified pancreatitis type (HCC) - Primary Disorders of gallbladder, biliary tract and pancreas in diseases classified elsewhere Hypothyroidism, unspecified type documented in this encounter Additional Health Concerns Infection Noted Time Resolved Time MRSA - Colonization 11/16/2018 10:13 AM EDT documented as of this encounter Insurance Payer Benefit Plan / Subscriber ID Effective Dates Phone Address Type Group MEDICARE MEDICARE PART A xxxxxxxxxxx 1998-Present Medicare & B [employer] BLUE xxxxxxxxxxxx 2018-Present [employer] PPO MEDICAID [facility] xxxxxxxx 2016-Present Medicaid [place] MEDICAID Guarantor Name Account Type Relation to Date of Phone Billing Patient Address Magdaleno Urbina Personal/Family [phone] (Home) [place], [place] [phone] (Work) documented as of this encounter Advance Directives Code Status Date Activated Date Inactivated Comments Full Code 11/16/2018 11:32 AM 11/30/2018 7:27 AM Does the patient have decision No MOTHER consents making capacity? Order was discussed with: Unable to determine at this time I discussed all options and Full Code patient/surrogate requested and agreed to:
--- OUTSIDE RECORDS SUMMARY | 2019-01-10 14:44 | XMS REPORT | Summary of Care ---
:1960 Author Organization [facility] Address [address] [address] Care Team Providers Name Role Phone Alexis Kirkland MD Primary Care Provider Reason for Referral (Routine) Status Reason Specialty Diagnoses / Procedures Referred By Contact Referred To Contact Kiara Zapata MD [address] [id number] Scheduling Instructions Reason for Consult: 58M with hx of gastroparesis and pancreatitis was scheduled for EGD with bx and EUS during EGD and biopsy we encountered bleeding from the biopsy site. EBL 2 L. Clips were applied and bleeding stopped. 1 unit prbc started. Admitted to ICU for resuscitation and close observation. Thank you very much. We appreciate the ICU care. Patient Background: Magdaleno Urbina is a 58-y.o. male Reason for Visit Auth/Cert Status Reason Specialty Diagnoses / Procedures Referred By Contact Referred To Contact Encounter Details Date Type Department Care Team Description 11/16/2018 - Hospital Encounter [facility] 7TH ICU UbaldoMonique hdez, Inpatient 11/18/2018 [address] [place] [address] [address] [phone] [place] [address] Allergies No Known Allergiesdocumented as of this encounter (statuses as of 11/19/2018) Medications Medication Sig Dispensed Refills Start End [...] wax build up). Use as directed by lean sensei. lamotrigine Take 100 mg by 0 Active [...] MOUTH EVERY 9 Oral Tab DAY (SUPPLEMENT) ondansetron Take 1 Tab by 15 Tab 11 Active (ZOFRAN ODT) 8 MG mouth EVERY SIX 9 Oral TABLET HOURS NEEDED DISPERSIBLE (nausea). Polyethylene MIX 17GM 510 g 10 Active [...] Petrolatum-Mineral eye DAILY. Oil (LUBRIFRESH P.M. OP) cephalexin Take 500 mg by 0 Discontinued (KEFLEX) 500 MG mouth FOUR 019 Oral Cap TIMES DAILY. 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 GERD (gastroesophageal reflux disease) 10/08/2011 documented as of this encounter (statuses as of 11/19/2018) Immunizations Name Administration Dates Next Due Influenza [...] Sign Reading Time Taken Comments Blood Pressure 105/55 11/18/2018 2:00 PM EDT Pulse 69 11/18/2018 2:00 PM EDT Temperature 35.7 11/18/2018 8:00 AM EDT C (96.3 F) Respiratory Rate 30 11/18/2018 2:00 PM EDT Oxygen Saturation 97% 11/18/2018 2:00 PM EDT Inhaled Oxygen Concentration - - Weight 49.2 kg (108 lb 6.4 oz) 11/18/2018 6:00 AM EDT Height 160 cm (5' 3") 11/16/2018 8:52 AM EDT Body Mass Index 19.2 11/16/2018 8:52 AM EDT documented in this encounter Discharge Summaries Hira Diaz MD - 11/18/2018 6:08 AM EDT [facility] General Surgery [address] [place] [address] [address] [place]. [id number] Discharge Summary Patient ID: Magdaleno Urbina [id number] 58-y.o. 1960 Admission date: 11/16/2018 Discharge date: 11/18/2018 Admitting Physician: Monique Aguillon MD Indication for Admission: Acute pancreatitis without necrosis or infection, unspecified, Gastric bleed Principal Diagnosis: Other chronic pancreatitis (HCC) Other medical problems managed in the hospital: Principal Problem: Other chronic pancreatitis (HCC) Discharged Condition: good Hospital Course Magdaleno Urbina is a 58-y.o. non-verbal and quadriplegic male who lives in a residential admitted on 11/16/18 with a history of pancreatitis and possible gastroparesis for an EGD and EUS for concern of pancreatitis.. He was taken to the OR on the day of admission and underwent EUS and a biopsy. After the biopsy was taken, 2L of bleeding were observed. He was given 1 unit pRBC and was transferred to the ICU in stable condition. He later received another unit of pRBC and 2L boluses in the ICU before beingtransferred to the intermediate care unit. He was evaluated on day of discharge and was found to be afebrile and hemodynamically at his baseline blood pressure of ~80 systolic per his solar maintenance technician. Upon discharge Magdaleno Urbina is tolerating Diet per speech language pathologist recommenddations without nausea/emesis, pain is well controlled on oralmedications, , he is having bowel movements regularly, and he is voiding spontaneously. He was discharged in good condition to his SNF The patient may resume all his regular meds, PRN meds and treatments. BP 116/58 Pulse 82 Temp 97.8 F (36.6 C) (Temporal) Resp 22 Ht 5' 3" (1.6 m) Wt 108 lb 6.4 oz (49.2 kg) SpO2 93% BMI 19.2 kg/m2 Physical Exam on day of discharge General: Sleeping Lungs: unlabored breathing Heart: regular rate and rhythm Abd: Non-tender to touch, no grimacing Ext: Extremities normal. No deformities, edema Consults: CONSULT TO SURGICAL CRITICAL CARE CONSULT TO [employer] LEAD/CASE MANAGEMENT CONSULT TO CENTRAL OFFICE ASSOCIATE CONSULT TO CENTRAL OFFICE ASSOCIATE Treatments: analgesia DVT Prophylaxis Collins catheter IV hydration RBC transfusion Procedures: Us Transesophageal Endoscopic Result Date: 11/16/2018 Please see performing physicians notes for results of this exam. Operations: Procedure(s): EGD WITH BIOPSY, OVESCO CLIP Complications: Procedural - acute hemorrhage after EUS/EGD biopsy Medications: Current Discharge Medication List CONTINUE these medications which have NOT CHANGED * acetaminophen 325 MG Tabs Commonly known as: TYLENOL Dose: 650 mg Quantity: 100 Tab Refills: 5 Take 2 Tabs by mouth EVERY SIX HOURS NEEDED for Fever. * acetaminophen 650 MG Supp Commonly known as: TYLENOL Quantity: 12 Suppository Refills: 3 INSERT 1 RECTALLY EVERY 6 HOURS NEEDED FOR FEVER IF UNABLE TO TAKEBY MOUTH BISCOLAX 10 MG Supp Generic drug: bisacodyl Quantity: 12 Suppository Refills: 4 INSERT 1 SUPPOSITORY INTO RECTUM NEEDED IF NO RESULTS 4 HOURS AFTER MOM/ SENNA GIVEN (CONSTIPATION) carbamide peroxide 6.5 % Soln Commonly known as: DEBROX OTIC, EAR WAX REMOVAL Dose: 3 Drop Quantity: 1 Bottle Refills: 3 Place 3 Drops into both ears TWO TIMES DAILY NEEDED (ear wax build up). Use as directed by lean sensei. dextromethorphan-guaifenesin 10-100 MG/5ML Syrp Commonly known as: ROBITUSSIN DM Dose: 5 mL Quantity: 236 mL Refills: 1 Take 5 mL by mouth EVERY FOUR HOURS NEEDED (cough). diazePAM 20 MG Gel Dose: 20 mg Quantity: 3 Each Refills: 0 Place 20 mg per rectum NEEDED (two or more seizures in 24 hours). divalproex sodium 500 MG Tbec Commonly known as: DEPAKOTE Dose: 1,000 mg Quantity: 270 Tab Refills: 4 Take 2 Tabs by mouth THREE TIMES DAILY. LAMICTAL 100 MG Tabs Generic drug: lamotrigine Dose: 100 mg Refills: 0 Take 100 mg by mouth TWICE DAILY. levothyroxine 100 MCG Tabs Commonly known as: SYNTHROID\\UNITHROID Quantity: 30 Tab Refills: 4 TAKE ONE TABLET BY MOUTH BEFORE BREAKFAST (THYROID) loperamide 2 MG Caps Commonly known as: IMODIUM Dose: 2 mg Quantity: 20 Cap Refills: 0 Take 1 Cap by mouth NEEDED for diarrhea. LUBRIFRESH P.M. OP Refills: 0 Place in right eye DAILY. magnesium hydroxide 400 MG/5ML Susp Commonly known as: MILK OF MAGNESIA Dose: 30 mL Quantity: 946 mL Refills: 5 Take 30 mL by mouth DAILY. metoclopramide 10 MG Tabs Commonly known as: REGLAN Quantity: 120 Tab Refills: 6 TAKE 1 TABLET BY MOUTH 4 TIMES DAILY.(GERD) MULTI-VITAMINS Tabs Quantity: 30 Tab Refills: 9 TAKE ONE TABLET BY MOUTH EVERY DAY (SUPPLEMENT) Omeprazole 40 MG Cpdr Quantity: 30 Cap Refills: 4 TAKE 1 CAPSULE BY MOUTH 15-20 MINUTES BEFORE BREAKFAST ondansetron 8 MG Tbdp Commonly known as: ZOFRAN ODT Dose: 8 mg Quantity: 15 Tab Refills: 11 Take 1 Tab by mouth EVERY SIX HOURS NEEDED (nausea). PEG 3350 Powd Quantity: 510 g Refills: 10 MIX 17GM (=20CC) IN 8OZ FLUID TAKE BY MOUTH TWICE A DAY (CONSTIPATION) Senna 8.8 MG/5ML Syrp Quantity: 474 mL Refills: 0 GIVE 15CC BY MOUTH WITH 30CC OF MOM NEEDED ON IF NO BM FOR 2 DAYS BY 4:00PM ( CONSTIPATION) SENNA-PLUS 8.6-50 MG Tabs Generic drug: sennosides-docusate sodium Quantity: 120 Tab Refills: 9 TAKE 4 TABLETS BY MOUTH ONCE A DAY (CONSTIPATION) * This list has 2 medication(s) that are the same as other medications prescribed for you. Read thedirections carefully, and ask your doctor or other care provider to review them with you. Stop taking these previous medications KEFLEX 500 MG Caps Generic drug: cephalexin Oxygen or Positive Pressure Devices: none Patient Instructions Activity: activity as tolerated Medications: - Take abnd-ssx-hfbjpdj medications such as tylenol or ibuprofen to both prevent and treat your pain. Take them as directed, and alternate taking each one 4 hours apart to continue pain control. - Prescription narcotics may be assigned to you to help control your pain. Take them as directed andonly after nbac-lpu-omzntrn medications have not worked. The patient may resume all his regular meds, PRN meds and treatments. Wound Care: None needed Follow-Up: Follow up with Dr. Aguillon in 1-2 weeks. Reason: Post Hospital Visit and Post Operative Follow up with PCP in 1-2 weeks. Reason: Post Hospital Visit and Post Operative , Primary care follow-up Diet: Full liquid pureed diet Time Spent: Approximately 40 minutes were spent in this encounter. Provider Signature: Monique Gomez MD 11/18/2018 06:08 documented in this encounter Discharge Instructions InstructionsMonique Gomez MD - 11/18/2018Patient Instructions Activity: activity as tolerated Medications: - Continue taking your home medications as prescribed if not otherwise changed or indicated. - Take nqqr-nzi-whzxijm medications such as tylenol or ibuprofen to both prevent and treat your pain. Take them as directed, and alternate taking each one 4 hours apart to continue pain control. - Prescription narcotics may be assigned to you to help control your pain. Take them as directed andonly after gxww-cpo-nsghedn medications have not worked. Wound Care: None needed Follow-Up: Follow up with Dr. Aguillon in 1-2 weeks. Reason: Post Hospital Visit and Post Operative Follow up with PCP in 1-2 weeks. Reason: Post Hospital Visit and Post Operative , Primary care follow-up Diet: Full liquid pureed diet documented in this encounter Progress Notes Monique Gomez MD - 11/18/2018 8:56 AM EDT [facility] [place]. [id number] General Surgery Progress Note Date of Service: 11/18/2018 Patient: Magdaleno Wilkinson #: [id number] Attending: MONIQUE AGUILLON MD , Subjective: Magdaleno Urbina 58-y.o. 2 Days Post-Op s/p EGD WITH BIOPSY, OVESCO CLIP (N/A Stomach) complicated by increased bleeding about 2L. Pt is non-verbal according to intermediate accountant. Overnight Events: NAEO, Overnight BP in range of 80s-90s/40s-50s and per critical care paramedic it is his normal BP on dialy basis. HR in range of 90s-100s. He has been having a collins in place for UOP monitoring. No BM and doing well. Physical: Objective: Blood pressure (!) 83/51, pulse 64, temperature 96.3 F (35.7 C), temperature source Temporal, resp. rate 19, height 5' 3" (1.6 m), weight 108 lb 6.4 oz (49.2 kg), SpO2 99 %. I/O: Date 11/17/18699 - 11/18/1865811/18/18 07 - 11/19/18 0659 Shift 6706-3457 0610-1512 3257-9762 24 Hour Total 7173-2569 0511-0272 8023-4131 24 Hour Total INTAKE I.V.(mL/kg/hr) 460(1.17) 926.2(2.36) 1386.2(1.17) Shift Total(mL/kg) 460(9.39) 926.2(18.91) 1386.2(28.19) OUTPUT Urine(mL/kg/hr) 375(0.96) 375(0.32) Shift Total(mL/kg) 375(7.65) 375(7.63) Weight (kg) 48.99 48.99 49.17 49.17 49.17 49.17 49.17 49.17 General: Sleeping Lungs: unlabored breathing Heart: regular rate and rhythm Abd: Non-tender to touch, no grimacing Ext: Extremities normal. No deformities, edema Data: Recent Labs 11/16/18 1841 11/17/18 0512 11/18/18 0421 WBC 5.86 7.30 5.83 HGB 10.6* 9.9* 10.3* HCT 31.3* 29.3* 31.5* PLAT 83* 92* 80* Recent Labs 11/17/18 05 NA 134 K 3.7 CL 103 CO2 23 GLUCOSE 82 BUN 5* CREATININE 0.3* EGFR >60 CALCIUM 8.0* Us Transesophageal Endoscopic Result Date: 11/16/2018 Please see performing physicians notes for results of this exam. Assessment: Magdaleno Urbina 58-y.o. 2 Days Post-Op s/p EGD WITH BIOPSY, OVESCO CLIP (N/A Stomach ) Pt continues to be stable at home baseline blood pressures with no evidence of further hemorrhage orinstability by labs or clinical findings. Will confirm patients ability to tolerate a home diet and plan for discharge later today. Plan: ? Hgb stable. Continue hemodynamic monitoring ? Replete lytes ? GAUNTLET PAIRER swallow evaluation o Start diet recommendations per Speech and Nutrition ? Appreciate Nutrition recommendations ? GI prophylaxis Author: Monique Gomez MD 11/18/18 08:58 Associated attestation - Monique Aguillon MD - 11/18/2018 [facility] Supervising MD Documentation Date of Service: 11/18/2018 B# [id number] I saw and evaluated the patient. Discussed with resident and agree with the resident's findings andplan as documented in the resident's note. Additional Comments: The patient has not had any further bleeding. Relayed to me that nursing requested GAUNTLET PAIRER analysis in order to resume the diet that the patient has been on in recent years. I don't consider this necessary, and our plan is for discharge back to senior living today. Monique Aguillon MD Supervising PhysicianRodney Duque MD - 11/17/2018 12:20 PM EDT [facility] [place]. [id number] General Surgery Progress Note Date of Service: 11/17/2018 Patient: Magdaleno Urbina B #: [id number] Attending: MONIQUE AGUILLON MD ,MD Subjective: Magdaleno Urbina 58-y.o. 1 Day Post-Op s/p EGD WITH BIOPSY, OVESCO CLIP ( N/A Stomach) complicated by increased bleeding about 2L. In ICU for further monitoring. Pt is non-verbal according to intermediate accountant. Overnight Events: NAEO, post transfusion Hgb was stable and repeat at 6 pm was 10.6. Overnight BP in range of 80s-90s/40s-50s and per critical care paramedic it is his normal BP on dialy basis. HR in range of 90s-100s. He was given 2 L boluses overnight and has been having a collins in place for UOP monitoring. No BM and doing well. Physical: Objective: Blood pressure (!) 76/41, pulse 88, temperature 97.8 F (36.6 C), temperature source Temporal, resp. rate 19, height 5' 3" (1.6 m), weight 108 lb (49 kg), SpO2 93 %. I/O: Date 11/16/18699 - 11/17/1865811/17/18 07 - 11/18/18 0659 Shift 2737-9367 4950-7830 3513-4761 24 Hour Total 7907-2541 4900-1223 9848-6441 24 Hour Total INTAKE I.V.(mL/kg/hr) 2000(5.1) 2909(7.42) 1934(4.93) 6843(5.82) 460 460 Blood 850 850 Shift Total(mL/kg) 2850(58.18) 2909(59.38) 1934(39.48) 7693(157.04) 460(9.39) 460(9.39) OUTPUT Urine(mL/kg/hr) 125(0.32) 497(1.27) 622(0.53) 375 375 Blood 2000 2000 Shift Total(mL/kg) 2000(40.83) 125(2.55) 497(10.15) 2622(53.52) 375(7.65) 375( 7.65) Weight (kg) 48.99 48.99 48.99 48.99 48.99 48.99 48.99 48.99 General: Sleeping Lungs: unlabored breathing Heart: regular rate and rhythm Abd: Non-tender to touch, no grimacing Ext: Extremities normal. No deformities, edema Data: Recent Labs 11/16/18 1300 11/16/18 1841 11/17/18 05 WBC 6.45 5.86 7.30 HGB 11.6* 10.6* 9.9* HCT 34.6* 31.3* 29.3* PLAT 88* 83* 92* Recent Labs 11/17/18 0512 NA 134 K 3.7 CL 103 CO2 23 GLUCOSE 82 BUN 5* CREATININE 0.3* EGFR >60 CALCIUM 8.0* Us Transesophageal Endoscopic Result Date: 11/16/2018 Please see performing physicians notes for results of this exam. Assessment: Magdaleno Urbina 58-y.o. 1 Day Post-Op s/p EGD WITH BIOPSY, OVESCO CLIP (N/A Stomach) Plan: ? Appreciate SICU management ? Hgb stable. Continue hemodynamic monitoring ? Replete lytes per ICU ? NPO ? DVT prophylaxis ? GI prophylaxis ? ICU mobility Author: Rodney Duque MD Luis Lo MD - 11/17/2018 6:53 AM T [facility] [place]. [id number] Trauma Critical Care Progress Note Date of Service: 11/17/2018 Date of Admission: 11/16/18 Patient: Magdaleno Wilkinson #: [id number] Attending: MONIQUE AGUILLON MD ,MD 24 hr events: NAEO, post transfusion Hgb was stable and repeat at 6 pm was 10.6. Overnight BP in range of 80s-90s/40s-50s and per critical care paramedic it is his normal BP on dialy basis. HR in range of 90s-100s. He was given 2 L boluses overnight and has been having a collins in place for UOP monitoring. No BM and doing well. Hemodynamic data: BP 95/52 Pulse 100 Temp 97.7 F (36.5 C) (Temporal) Resp 23 Ht 5' 3" (1.6 m) Wt 108 lb (49 kg) SpO2 93% BMI 19.13 kg/m2 Labs: I have seen and evaluated the labs this morning. Imaging: none. Exam: Gen: No acute distress Neuro & Psych: tracks but doesn't follow commands. Quadriplegic and non verbal with MR HEENT: no trauma and PERRLA CV: RRR, no murmurs/gallops appreciated Resp: Clear bilaterally Abd: soft, non-distended, no grimacing/tenderness to palpation : Collins to gravity drainage Ext: no cyanosis or edema, grossly normal Back: not assesed Skin: warm/dry and no breakdown Core Measures: DVT Prophylaxis: Venodynes GI Prophylaxis: Protonix Nutrition: NPO Collins Remains because: Urine output monitoring in a critically ill patient. Assessment: Magdaleno Urbina is a 58-y.o. male with a history of pancreatitis and possible gastroparesis who presented for an EGD/EUS. Patient was taken to the OR and underwent EGD and EUS, during procedure biopsy was performed which led to increased bleeding about 2L and he was transfused that's why he was transferred to ICU. He is doing well and is HDS Plan: Neurological: AAO x 0 and in no acute distress ? Continue home valproate IV form Cardiovascular: ? Pressors: none, on IVF at 100 will switch to maintenance fluids ? cardiomonitoring Pulmonary: stable GI: NPO for now. Diet per primary : baseline incontinent . Will remove collins this am FEN: lytes repletion prn Endocrine: ? Hypothyroidism on synthyroid. Heme: s/p 2 units Hgb 9.9 this am Infectious Disease: N/A Musculoskeletal: ICU mobility protocol Other: holding DVT ppx Disposition: ok to transfer to floor, will touch base with primary. Author: Luis Boateng MDElectronically signed by Franco Menon MD at 2018 3:26 PM EDT Associated attestation - Franco Menon MD - 11/17/2018 3:[facility] Supervising MD Documentation Date of Service: 11/17/18 B# [id number] I saw and evaluated the patient. Discussed with resident and agree with the resident's findings andplan as documented in the resident's note. Additional Comments: No evidence of ongoing hemorrhage. Medically appropriate to transfer out of SICU. Franco Menon MD Supervising Physician documented in this encounter Plan of Treatment Date Type Specialty Care Team Description 11/24/2018 Office Visit Internal Medicine Alexis Kirkland MD [address] [place] [address] [phone] 11/25/2018 Office Visit Internal Medicine Alexis Kirkland MD [address] [place] [address] [phone] 11/30/2018 Hospital Encounter Anesthesiology Monique Aguillon Short Procedure MD [address] [address] [phone] 11/30/2018 [facility] Gastroenterology Monique Aguillon MD [address] [address] 11/30/2018 Surgery Monique Aguillon ENDOSCOPIC MD ULTRASOUND/UGI/?ERCP [address] [address] Health Maintenance Due Date Last Done Comments [...] of this encounter Implants Implanted Type Area Pattern Duplicator Device Shelf Model / Identifier Expiration Serial / Date Lot Resolution 360 Clip N/A: [employer] [id number] / Implanted: Qty: 1 on 11/16/2018 by Monique Aguillon MD at [facility] Stomach Directed Edge / [id number] Description:FROM GI GI WILL CHARGE FOR THIS Resolution 360 N/A: Stomach [employer] [id number] / Implanted: Qty: 1 on 11/16/2018 by Monique Aguillon MD at [facility] / [id number] Description:FROM GI GI WILL CHARGE FOR THIS documented as of this encounter Procedures Procedure Name Priority Date/Time Associated Comments Diagnosis PLATELET CHECK / Routine 11/18/2018 REVIEW 4:21 AM EDT CBC NO DIFFERENTIAL Routine 11/18/2018 Results for 4:21 AM EDT this procedure are in the results section. PLATELET CHECK / Routine 11/17/2018 REVIEW 5:12 AM EDT MAGNESIUM LEVEL Routine 11/17/2018 Results for 5:12 AM EDT this procedure are in the results section. BASIC METABOLIC PANEL Routine 11/17/2018 Results for 5:12 AM EDT this procedure are in the results section. CBC NO DIFFERENTIAL Routine 11/17/2018 Results for 5:12 AM EDT this procedure are in the results section. PLATELET CHECK / Routine 11/16/2018 REVIEW 6:41 PM EDT CBC NO DIFFERENTIAL Routine 11/16/2018 Results for 6:41 PM EDT this procedure are in the results section. PLATELET CHECK / Routine 11/16/2018 REVIEW 1:00 PM EDT CBC NO DIFFERENTIAL STAT 11/16/2018 Results for 1:00 PM EDT this procedure are in the results section. ABG W/ CRITICAL CARE STAT 11/16/2018 Results for PANEL 12:32 PM EDT this procedure are in the results section. [facility] SCANNED DOCUMENT 11/16/2018 12:00 PM EDT CARDIOLOGY TEST RESULT 11/16/2018 12:00 PM EDT SIGN PERMIT 11/16/2018 12:00 PM EDT TRANSFUSE RED CELLS Routine 11/16/2018 11:54 AM EDT TRANSFUSE RED CELLS Routine 11/16/2018 11:38 AM EDT PREPARE RED CELLS STAT 11/16/2018 Results for LEUKOREDUCED 10:40 AM EDT this procedure are in the results section. TYPE AND SCREEN STAT 11/16/2018 Results for 10:38 AM EDT this procedure are in the results section. TISSUE EXAM Routine 11/16/2018 Acute Results for 10:07 AM EDT pancreatitis, this procedure unspecified are in the complication results status, section. unspecified pancreatitis type UPPER GI ENDOSCOPY Routine 11/16/2018 Results for REPORT 9:20 AM EDT this procedure are in the results section. EGD WITH BIOPSY Planned Trip to 11/16/2018 OR 9:16 AM EDT MRSA BY PCR (NASAL) STAT 11/16/2018 Results for 9:04 AM EDT this procedure are in the results section. US TRANSESOPHAGEAL Routine 11/16/2018 Results for ENDOSCOPIC 8:36 AM EDT this procedure are in the results section. documented in this encounter Results PLATELET CHECK / REVIEW (11/18/2018 4:21 AM EDT) Specimen Blood Performing Organization Address City/State/Zipcode Phone Number [facility] [address] [place] [address] [phone] CBC NO DIFFERENTIAL (11/18/2018 4:21 AM EDT) WBC Count 5.83Comment: 4.23 - 9.07 [facility] was K/uL [facility] changed 03/18/2018. Please note updated reference range and units. RBC Count 3.55 (L) 4.30 - 5.89 [facility] M/UL [facility] Hemoglobin 10.3 (L) 13.7 - 17.5 [facility] g/dL [facility] Hematocrit 31.5 (L) 40.1 - 51.0 % [facility] MCV 88.7 79.0 - 92.2 [facility] [place] [email or web address]ATORY MCH 29.0 25.7 - 32.2 [facility] PG [facility] [[email or web address] LABORATORY MCHC 32.7 32.3 - 36.5 [facility] g/dL [facility] Platelet Count 80 (L) 163 - 337 [facility] K/uL [facility] [[email or web address] LABORATORY MPV 10.0 9.4 - 12.4 [place] [facility] RDW 16.9 (H) 11.6 - 14.4 % [facility] Specimen Blood Performing Organization Address City/[facility]/Zipcode Phone Number [facility] [address] [place] [address] PLATELET CHECK / REVIEW (11/17/2018 5:12 AM EDT) Specimen Blood Performing Organization Address City/[facility]/Zipcode Phone Number [facility] [address] [address] MAGNESIUM LEVEL (11/17/2018 5:12 AM EDT) Magnesium 1.6 1.6 - 2.3 MG/DL [facility] Specimen Blood Performing Organization Address City/[facility]/Zipcode Phone Number [facility] [address] [place] [address] BASIC METABOLIC PANEL (11/17/2018 5:12 AM EDT) Glucose 82 70 - 99 mg/dl [facility] BUN 5 (L) 9 - 20 mg/dl [facility] Creatinine 0.3 (L) 0.8 - 1.5 mg/dl [facility] Sodium 134 134 - 145 mmol/L [facility] Potassium 3.7 3.5 - 5.1 mmol/L [facility] Chloride 103 98 - 107 mmol/L [facility] CO2 23 22 - 30 mmol/L [facility] Calcium 8.0 (L) 8.3 - 10.1 mg/dl [facility] eGFR >60 See Interpretation [facility] Comment: Below ml/min/1.73ml GROUP S[facility] LABORATORY Estimated GFR Interpretation: Above 60ml/min/1.73m2 = Normal Renal Function 30-59 ml/min/1.73m2 = Stage 3 Chronic Kidney Disease 15-29 ml/min/1.73m2 = Stage 4 Chronic Kidney Disease Less than 15 ml/min/1.73m2 = Stage 5 Chronic Kidney Disease The GFR value is calculated using the Modification of Diet in Renal Disease ( MDRD) Study Equation which can be found at: https://www.kidney.org/content/dzou-densw-jxtmtuag BUN/Creatinine 17 6 - 22 RATIO [facility] Ratio [email or web address] LABORATORY Anion Gap 8 3 - 11 mmol/L [facility] Specimen Blood Performing Organization Address City/State/Zipcode Phone Number [facility] [address] [place] [address] CBC NO DIFFERENTIAL (11/17/2018 5:12 AM EDT) WBC Count 7.30Comment: 4.23 - 9.07 [facility] Methodology was K/uL [facility] changed 03/18/2018. Please note updated reference range and units. RBC Count 3.40 (L) 4.30 - 5.89 [facility] M/UL [facility] Hemoglobin 9.9 (L) 13.7 - 17.5 [facility] g/dL [facility] Hematocrit 29.3 (L) 40.1 - 51.0 % [facility] MCV 86.2 79.0 - 92.2 [facility] FL [facility] MCH 29.1 25.7 - 32.2 [facility] PG [facility] MCHC 33.8 32.3 - 36.5 [facility] g/dL [facility] Platelet Count 92 (L) 163 - 337 [facility] K/uL [facility] MPV 9.6 9.4 - 12.4 FL [facility] RDW 17.2 (H) 11.6 - 14.4 % [facility] Specimen Blood Performing Organization Address [facility] Phone Number [facility] [address] [place] [address] PLATELET CHECK / REVIEW (11/16/2018 6:41 PM EDT) Specimen Blood Performing Organization Address [facility] Phone Number [facility] [address] [address] CBC NO DIFFERENTIAL (11/16/2018 6:41 PM EDT) WBC Count 5.86Comment: 4.23 - 9.07 [facility] was K/uL [facility] changed 03/18/2018. Please note updated reference range and units. RBC Count 3.65 (L) 4.30 - 5.89 [facility] M/UL [facility] Hemoglobin 10.6 (L) 13.7 - 17.5 [facility] g/dL [facility] Hematocrit 31.3 (L) 40.1 - 51.0 % [facility] MCV 85.8 79.0 - 92.2 [facility] FL [facility] MCH 29.0 25.7 - 32.2 [facility] PG [facility] MCHC 33.9 32.3 - 36.5 [facility] g/dL [facility] Platelet Count 83 (L) 163 - 337 [facility] K/uL [facility] MPV 10.3 9.4 - 12.4 FL [facility] RDW 16.6 (H) 11.6 - 14.4 % [facility] Specimen Blood Performing Organization Address [facility] Phone Number [facility] [address] [place] [address] [phone] PLATELET CHECK / REVIEW (11/16/2018 1:00 PM EDT) Specimen Blood Performing Organization Address [facility] Phone Number [facility] [address] [place] [address] [phone] CBC NO DIFFERENTIAL (11/16/2018 1:00 PM EDT) WBC Count 6.45Comment: 4.23 - 9.07 [facility] Methodology was K/uL [facility] changed 03/18/2018. Please note updated reference range and units. RBC Count 3.92 (L) 4.30 - 5.89 [facility] M/UL [facility] Hemoglobin 11.6 (L) 13.7 - 17.5 [facility] g/dL [facility] Hematocrit 34.6 (L) 40.1 - 51.0 % [facility] MCV 88.3 79.0 - 92.2 [facility] FL [facility] MCH 29.6 25.7 - 32.2 [facility] PG [facility] MCHC 33.5 32.3 - 36.5 [facility] g/dL [facility] Platelet Count 88 (L) 163 - 337 [facility] K/uL [facility] MPV 9.8 9.4 - 12.4 FL [facility] RDW 15.9 (H) 11.6 - 14.4 % [facility] Specimen Blood Performing Organization Address City/State/Zipcode Phone Number [facility] [address] [place] [address] ABG W/ CRITICAL CARE PANEL (11/16/2018 12:32 PM EDT) pH 7.39 7.35 - 7.45 [facility] pCO2 45 (H) 35 - 44 mmHg [facility] PO2 139 (H) 67 - 95 mmHg [facility] % Saturation 95.7 92.0 - 98.0 [facility] Base Excess 2 -2 - 2 [facility] mmol/L [facility] Whole Blood Na 135 (L) 136 - 143 [facility] MMOL/L [facility] Whole Blood K 3.3 (L) 3.6 - 5 [facility] MMOL/L [facility] Whole Blood Chloride 103 98 - 107 [facility] MMOL/L [facility] Whole Blood Glucose 121 (H) 65 - 100 [facility] MG/DL [facility] Whole Blood Lactate 1.1 <=2.2 mmol/L [facility] Total Hemoglobin 11.1 (L) 13.5 - 18 [facility] g/dL HOSPITAL BLOOD [facility] Total Hematocrit 34.4 (L) 40.0 - 52.0 [facility] Ionized Calcium 5.41 (H) 4.65 - 5.28 [facility] mg/dL [facility] Ionized Calcium Ph 5.37 mg/dL [facility] BLOOD GAS LAB Rick's Test Positive [facility] Carboxyhemoglobin 0.4 <=2.5 % [facility] Methemoglobin 1.1 (H) <=1 % [facility] ABG Conditions Cannula:2 LPM [facility] Specimen Blood, arterial Performing Organization Address City/[facility] Phone Number [facility] [address] [address] [phone] CARDIOLOGY TEST RESULT (11/16/2018 12:00 PM EDT) Narrative Performed At TRANSFUSE RED CELLS (11/16/2018 11:54 AM EDT)TRANSFUSE RED CELLS (11/16/2018 11: 38 AM EDT)PREPARE RED CELLS LEUKOREDUCED (11/16/2018 10:40 AM EDT) RED CELLS RCL4 RED CELLS LR [facility] BLOOD BANK [id number] p.Transfus compatible 11/16/18 11:19 SCC UTYPE O POS [facility] BLOOD BANK UNIT BLOOD RH POS [facility] BLOOD [facility] UPROD RCL4 [facility] BLOOD BANK UNIT# [id number] [facility] BLOOD BANK DISPSTATUS transfused [facility] BLOOD BANK UNIT NUMBER =[id number] [facility] PRODUCT CODE [id number] [facility] BLOOD BANK UNIT BLOOD ABO 5100 [facility] BLOOD [facility]ANK EXPIRATION DATE [id number] [facility] BLOOD [facility]ANK RED CELLS RCL4 RED CELLS LR [facility] BLOOD BANK [id number] p.Transfus compatible 11/16/18 11:19 SCC UTYPE O POS [facility] BLOOD BANK UNIT BLOOD RH POS [facility]LOOD BANK UPROD RCL4 [facility] BLOOD BANK UNIT# [id number] [facility] BLOOD BANK DISPSTATUS transfused [facility] BLOOD BANK UNIT NUMBER =[id number] [facility] BLOOD BANK PRODUCT CODE [id number] [facility] BLOOD BANK UNIT BLOOD ABO 5100 [facility] BLOOD BANK EXPIRATION DATE [id number] [facility] BLOOD BANK Specimen Performing Organization Address City/[facility]/Zipcode Phone Number [facility] BLOOD BANK [facility] [address] TYPE AND SCREEN (11/16/2018 10:38 AM EDT) ABO/RH Type O POS [facility] BLOOD [facility]ANK Antibody Screen Interp NEG [facility] BLOOD [facility] Specimen Blood Performing Organization Address [facility] Phone Number [facility] BLOOD [facility]ANK [place] [address] TISSUE EXAM (11/16/2018 10:07 AM EDT) Case Report Surgical Pathology Case: [id number] [facility] Authorizing Provider: Monique Aguillon MD Collected: 11/16/2018 10:07 AM Ordering Location: [facility] Preprocedure Received: 11/16/2018 12:38 PM Pathologist: Wild Canchola MD Specimens: 1) - stomach, biopsy, BX. GASTRIC ANTRUM 2) - stomach, biopsy, BX. GASTRIC BODY Pre-Op Diagnosis No Dx found. [facility] Post-Op Diagnosis No Dx found. [facility] FINAL DIAGNOSIS 1. Stomach, antral biopsies: Unremarkable gastric mucosa. [facility] Electronically signed -No H. pylori organisms are seen on the routine stain. [facility] by Wild Canchola MD on 2. Stomach, biopsies from body: Chronic gastritis with mild atrophy of oxyntic glands. 11/17/2018 at 1:53 PM Microscopic Microscopic [facility] Description examination is [facility] performed. Gross Description 1. The specimen is received in formalin labeled, with the patient's name, MRN, and BX. GASTRIC ANTRUM and consists of 2-minute irizarry-pink soft tissue fragments each measuring 0.4 cm. These fragments are totally submitted in cassette 1A. [facility] 2. The specimen is received in formalin labeled, with the patient's name, MRN , and BX. GASTRIC BODY and consists of multiple minute irizarry-pink soft tissue fragments ranging in size from 0.1 to 0.2 cm. These fragments are submitted in cassette 2A. MM Gross description is reviewed before signout by Wild Canchola MD Specimen Tissue - stomach, biopsy Tissue specimen (specimen) - stomach, biopsy Performing Organization Address [facility] Phone Number [facility] [address] [place] [address] UPPER GI ENDOSCOPY REPORT (11/16/2018 9:20 AM EDT) Upper GI endoscopy [facility] __ Patient Name: Magdaleno Urbina Procedure Date: 11/16/2018 9:20 AM Date of : 1960 Admit Type: Outpatient Age: 58 Room: OR Gender: Male Note Status: Finalized Attending MD: MONIQUE AGUILLON MD Instrument Name: [id number] __ Procedure: Upper GI endoscopy Indications: Abnormal CT of the GI tract Providers: MONIQUE AGUILLON MD, Amelia Oneill, RN (Nurse), Vilma Ramirez, DANIEL (Nurse), Mayra Olivares RN (Nurse), KIARA ZAPATA MD Referring MD: NANCY RIDER NP (Referring MD) Medicines: General Anesthesia Complications: No immediate complications. Estimated blood loss: None. __ Procedure: Pre-Anesthesia Assessment: - Prior to the procedure, a History and Physical was performed, and patient medications, allergies and sensitivities were reviewed. The patient's tolerance of previous anesthesia was reviewed. - The risks and benefits of the procedure and the sedation options and risks were discussed with the patient. All questions were answered and informed consent was obtained. - Patient identification and proposed procedure were verified prior to the procedure. The procedure was verified in the procedure room. The patient's current medications and allergies were reviewed and recorded in the nurses notes. The patient was made aware of the risk of the procedure which can include: bleeding, infection, perforation, an adverse reaction to sedation, and a risk of missed lesions, among others. The patient appeared to understand. An opportunity for questions was provided, and an informed consent form was signed. The scope was passed under direct vision. Throughout the procedure, the patient's blood pressure, pulse EKG, and oxygen saturations were monitored continuously. The Endoscope was introduced through the mouth, and advanced to the third part of duodenum. COMMENT: THERE WERE THICKENED GASTRIC FOLDS WITH NODULAR MUCOSAL CHANGES, AND NO SIGNS OF GASTRIC VARICES. MULTIPLE BIOPSIES WERE TAKEN AND THERE WAS THE ONSET OF TORENTIAL BLEEDING. RESOLUTION CLIPS WERE PLACED TWICE WITH SLOWING, BUT THEN THE ENDOSCOPE WAS SWAPPED FOR A THERAPEUTIC SCOPE; A DUAL KARRIE WAS NOT AVAILABLE. THE 1T WAS USED WITH THE BIOVAC TO SUCTION THE CLOTS AND AND AN OVESCO WAS DEPLOYED WITH CESSATION OF BLEEDING. THE CLOT WAS CLEARED USING SUCTION, A COLEMAN NET, AND IRRIGATION AND ONCE CLEARED THERE WAS NO FURTHER BLEEDING SEEN. THE PLAN HAD BEEN FOR EUS TODAY WELL BUT THIS WAS ABANDONED IN FAVOR OF TRANSFUSION, ICU ADMISSION. The Endoscope was introduced through the mouth, and advanced to the third part of duodenum. Findings: The esophagus was normal. Diffuse thick gastric folds were found in the entire examined stomach. Biopsies were taken with a cold forceps for histology. Verification of patient identification for the specimen was done by the physician and nurse using the patient's name and date. Estimated blood loss: 2000 requiring treatment with placement of hemostatic clip(s). To prevent bleeding post-intervention, three hemostatic clips were successfully placed. There was no bleeding at the end of the procedure. The examined duodenum was normal. Impression: - Normal esophagus. - Enlarged gastric folds. Biopsied. Clips were placed. - Normal examined duodenum. Recommendation: - Discharge patient to home. - Patient has a contact number available for emergencies. The signs and symptoms of potential delayed complications were discussed with the patient. Return to normal activities tomorrow. Written discharge instructions were provided to the patient. - NPO. - Continue present medications. - Admit the patient to ICU for ongoing care. Procedure Code(s): --- Professional --- 52712, Esophagogastroduodenoscopy, flexible, transoral; with biopsy, single or multiple Diagnosis Code(s): --- Professional --- K29.60, Other gastritis without bleeding R93.3, Abnormal findings on diagnostic imaging of other parts of digestive tract CPT copyright 2017 [employer]. All rights reserved. The codes documented in this report are preliminary and upon film processing utility worker review may be revised to meet current compliance requirements. Attending Participation: I personally performed the entire procedure. MONIQUE AGULILON MD 11/16/2018 11:37:58 AM This report has been signed electronically. Number of Addenda: 0 Note Initiated On: 11/16/2018 9:20 AM CC Letter to: ALEXIS KIRKLAND MD (CC) Specimen Performing Organization Address [facility] Phone Number [facility] MRSA BY PCR (NASAL) (11/16/2018 9:04 AM EDT) MRSA BY PCR Positive for MRSA (AA) Negative [facility] Comment: LABORATORY Testing performed by PCR. Specimen Nose Performing Organization Address [facility] Phone Number [facility] [address] [address] TRANSESOPHAGEAL ENDOSCOPIC (11/16/2018 8:36 AM EDT) Specimen Narrative Performed At Please see performing physicians notes for results of this exam. [facility] POCT Performing Organization Address [facility] Phone Number [facility] POCT [address] [address] documented in this encounter Visit Diagnoses Diagnosis Other chronic pancreatitis (HCC) - Primary Acute pancreatitis, unspecified complication status, unspecified pancreatitis type documented in this encounter Administered Medications Medication Order MAR Action Action Date Dose Rate Site dextrose 5%-1/2 normal saline New Bag 11/18/2018 11:31 AM EDT 89 mL/hr with 20 mEq/L KCl IV premix Intravenous, at 89 mL/hr, CONTINUOUS, Starting 11/17/18 at 1200, Until Chyna 11/18/18 at 1710 Rate Verify 11/18/2018 8:00 AM EDT 89 mL/hr New Bag 11/17/2018 10:19 PM EDT 89 mL/hr levothyroxine 50 mcg injectable syringe Given 11/18/2018 5:56 AM EDT 50 mcg 50 mcg, Intravenous Push, PRE BREAKFAST, First dose on Thu11/17/18 at 0600, Until Discontinued Given 11/17/2018 6:21 AM EDT 50 mcg normal saline bolus 1,000 mL New 11/16/2018 7:50 PM EDT 1,000 mL 1,000 mL, Intravenous, BOLUS, 1 dose, Thu11/16/18 at 1950 normal saline bolus 1,000 mL New Bag 11/17/2018 5:00 AM EDT 1,000 mL 1,000 mL, Intravenous, BOLUS, 1 dose, Thu11/17/18 at 0550 normal saline IV New Bag 11/17/2018 12:00 AM EDT 100 mL/hr Intravenous, at 100 mL/hr, CONTINUOUS, Starting Thu11/16/18 at 1230, Until Thu11/17/18 at 1051 Rate Verify 11/16/2018 8:00 PM EDT 100 mL/hr New Bag 11/16/2018 12:48 PM EDT 100 mL/hr pantoprazole (PROTONIX) injection 40 mg New Bag 11/18/2018 8:18 AM EDT 40 mg 40 mg, Intravenous, DAILY, First dose on Thu11/16/18 at 1140, Until Discontinued Push 11/17/2018 9:29 AM EDT 40 mg valproate (DEPACON) IV mixture 1,000 mg New Bag 11/18/2018 8:18 AM EDT 1,000 mg 1,000 mg, Intravenous, Q8 HRS, First dose on Thu11/16/18 at 1610, Until Discontinued New Bag 11/18/2018 12:46 AM EDT 1,000 mg New Bag 11/17/2018 4:59 PM EDT 1,000 mg documented in this encounter Additional Health Concerns Infection Noted Time Resolved Time MRSA - Colonization 11/16/2018 10:13 AM EDT documented as of this encounter Insurance Payer Benefit Plan / Subscriber ID Effective Dates Phone Address Type Group MEDICARE MEDICARE PART A xxxxxxxxxxx 1998-Present Medicare & B [employer] BLUE xxxxxxxxxxxx 2018-Present [employer] [place] [place] MEDICAID [facility] xxxxxxxx 2016-Present [place] Guarantor Name Account Type Relation to Date of Phone Billing Patient Address Magdaleno Urbina Personal/Family 1960 [address] [facility] [facility] (Home) [place], [place] [phone] (Work) documented as of this encounter Advance Directives Code Status Date Activated Date Inactivated Comments Full Code 11/16/2018 11:32 AM Does the patient have decision No MOTHER consents making capacity? Order was discussed with: Unable to determine at this time I discussed all options and Full Code patient/surrogate requested and agreed to:
--- OUTSIDE RECORDS SUMMARY | 2019-01-10 14:44 | XMS REPORT | Summary of Care ---
:1960 Author Organization [facility] Address [address] [facility] [place] [address] Care Team Providers Name Role Phone Vic Kirkland MD Primary Care Provider Reason for Visit Reason Comments Transitional Care Management Patient was discharged from [facility] on 11/18/2018 he was diagnosed with pancreatitis. Encounter Details Date Type Department Care Team Description 11/24/2018 Office Visit [facility] Vic Kirkland, Gastritis, presence of bleeding unspecified, unspecified chronicity, unspecified gastritis type (Primary Dx); Medicine Acute on chronic pancreatitis ([facility]) [address] [place] [address] [place] [address] [phone] Allergies No Known Allergiesdocumented as of this encounter (statuses as of 11/24/2018) Medications Medication Sig Dispensed Refills Start End Status Date Date acetaminophen Take 2 Tabs by 100 Tab 5 10/08/19 Active (TYLENOL) 325 MG mouth EVERY SIX 12 Oral HOURS NEEDED TabIndications: for Fever. Chronic constipation carbamide peroxide Place 3 Drops 1 Bottle 3 08/22/19 Active (DEBROX OTIC, EAR into both ears 15 WAX REMOVAL) 6.5 % TWO TIMES DAILY Otic Solution NEEDED (ear wax build up). Use as directed by superior court clerk. lamotrigine Take 100 mg by 0 Active (LAMICTAL) 100 MG mouth TWICE Oral Tab DAILY. BISCOLAX 10 MG INSERT 1 12 Suppository 4 04/10/19 Active Rectal Suppos SUPPOSITORY 16 INTO RECTUM NEEDED IF NO RESULTS 4 HOURS AFTER MOM/SENNA GIVEN (CONSTIPATION) dextromethorphan-g Take 5 mL by 236 mL 1 02/12/20 Active uaifenesin mouth EVERY 16 (ROBITUSSIN DM) FOUR HOURS 10-100 MG/5ML Oral NEEDED (cough). Syrup acetaminophen INSERT 1 12 Suppository 3 05/20/19 Active (TYLENOL) 650 MG RECTALLY EVERY 17 Rectal Suppos 6 HOURS NEEDED FOR FEVER IF UNABLE TO TAKEBY MOUTH loperamide Take 1 Cap by 20 Cap 0 06/22/19 Active (IMODIUM) 2 MG mouth NEEDED 17 Oral Cap for diarrhea. divalproex sodium Take 2 Tabs by 270 Tab 4 11/14/19 Active (DEPAKOTE) 500 MG mouth THREE 17 Oral Tab EC TIMES DAILY. Sennosides (SENNA) GIVE 15CC BY 474 mL 0 05/01/19 Active 8.8 MG/5ML Oral MOUTH WITH 30CC 18 Syrup OF MOM NEEDED ON IF NO BM FOR 2 DAYS BY 4:00PM (CONSTIPATION) metoclopramide TAKE 1 TABLET 120 Tab 6 04/13/19 Active (REGLAN) 10 MG BY MOUTH 4 19 Oral Tab TIMES DAILY.(GERD) Multiple Vitamin TAKE ONE TABLET 30 Tab 9 05/12/19 Active (MULTI-VITAMINS) BY MOUTH EVERY 19 Oral Tab DAY (SUPPLEMENT) Polyethylene MIX 17GM 510 g 10 07/22/19 Active Glycol 3350 (PEG (=20CC) IN 8OZ 19 3350) Oral Powder FLUID TAKE BY MOUTH TWICE A DAY (CONSTIPATION) SENNA-PLUS 8.6-50 TAKE 4 TABLETS 120 Tab 9 08/06/19 Active MG Oral Tab BY MOUTH ONCE A 19 DAY (CONSTIPATION) Omeprazole 40 MG TAKE 1 CAPSULE 30 Cap 4 09/01/19 Active Oral CAPSULE BY MOUTH 15-20 19 DELAYED RELEASE MINUTES BEFORE BREAKFAST magnesium Take 30 mL by 946 mL 5 09/03/19 Active hydroxide (MILK OF mouth DAILY. 19 MAGNESIA) 400 MG/5ML Oral Suspension levothyroxine TAKE ONE TABLET 30 Tab 4 10/29/19 Active (SYNTHROID\UNITHRO BY MOUTH BEFORE 19 ID) 100 MCG Oral BREAKFAST Tab (THYROID) diazePAM (DIASTAT Place 20 mg per 3 Each 0 11/02/19 Active ACUDIAL) 20 MG rectum 19 Rectal Gel NEEDED (two or more seizures in [address] in right 0 Active Petrolatum-Mineral eye DAILY. Oil (LUBRIFRESH P.M. OP) metoclopramide TAKE 1 TABLET 120 Tab 4 11/24/19 Active (REGLAN) 10 MG BY MOUTH 4 19 Oral Tab TIMES DAILY.(GERD) ondansetron Take 1 Tab by 30 Tab 11 11/25/19 Active (ZOFRAN ODT) 8 MG mouth EVERY SIX 19 Oral TABLET HOURS NEEDED DISPERSIBLE (nausea). ondansetron Take 1 Tab by 15 Tab 11 06/23/19 Discontinued (ZOFRAN ODT) 8 MG mouth EVERY SIX 19 019 (Reorder) Oral TABLET HOURS NEEDED DISPERSIBLE (nausea). documented as of this encounter (statuses as of 11/24/2018) Active Problems Problem Noted Date Gastritis 11/24/2018 Acute on chronic pancreatitis 11/24/2018 Other chronic pancreatitis 11/16/2018 Recurrent aspiration pneumonia 07/13/2018 Streptococcus bovis infection 03/20/2016 History of dysphagia 03/20/2016 Regurgitation and rechewing 12/07/2012 Other specified hypothyroidism 01/22/2012 Seizure disorder 10/08/2011 Overview: Neurology [facility] Dr Martinez [facility] [phone] Chronic constipation 10/08/2011 Profound intellectual disability 10/08/2011 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 Review of the hospitalization: I am seeing for transition of care following hospitalization. Discharge date: 11/18/2018 Indication for Admission: Acute pancreatitis without necrosis or infection, unspecified, Gastric bleed Principal Diagnosis: Other chronic pancreatitis (HCC) Other chronic pancreatitis (HCC) Hospital Course Magdaleno Urbina is a 58-y.o. 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 Upon discharge Magdaleno Urbina is tolerating Diet per speech language pathologist recommenddations without nausea/emesis, pain is well controlled on oralmedications, , he is having bowel movements regularly, and he is voiding spontaneously. I also reviewed the Transition of Care documentation done by staff. He is seen today with [facility] staff He has persistent vomit of solid food and this is better with zofran as needed The tests that were not available at the time of discharge were reviewed. Additional tests which are not yet available include: None Exam The abdomen is soft without tenderness, guarding, mass, rebound or organomegaly. Bowel sounds are normal. No CVA tenderness or inguinal adenopathy noted. ICD-9-CM ICD-10-CM 1. Gastritis, presence of bleeding unspecified, unspecified chronicity, unspecified gastritis type follow up Dr Conner [facility] [phone] K29.70 2. Acute on chronic pancreatitis (HCC) zofran refill get EUS [facility] [phone] K85.90 577.1 K86.1 Coordination of care. - I am satisfied that appropriate referrals are in place to deal with the problems identified during hospitalization, and that the patient has adequate community resources and support in place. I confirmed the patient's understanding of the diagnosis and plan of care. Specific education that was provided today: Patient Instructions Keep follow up appointment Dr Conner next week Refill zofran sent in The current and discharge medications were reconciled by me, today The source document was hospital discharge summary documented in this encounter Plan of Treatment Date Type Specialty Care Team Description 11/25/2018 Office Visit Internal Medicine Vic Kirkland MD [address] [id number] [phone] 11/30/2018 Hospital Encounter Anesthesiology Kirt Conner Short Procedure [address] [address] 11/30/2018 IPPR Gastroenterology Kirt Conner MD [address] [address] 11/30/2018 Surgery Kirt Conner ENDOSCOPIC ULTRASOUND/UGI/?ERCP 1 [address] [address] Health Maintenance Due Date Last Done [...] of this encounter Implants Implanted Type Area Supervisor Graphite Device Shelf Model / Identifier Expiration Serial / Date Lot Resolution 360 Clip N/A: CHANDLER [id number] / Implanted: Qty: 1 on 11/16/2018 by Kirt Conner MD at [facility] [employer] / [id number] Description:FROM GI GI WILL CHARGE FOR THIS Resolution 360 N/A: Stomach [employer] [id number] / Implanted: Qty: 1 on 11/16/2018 by Kirt Conner MD at [facility] / [id number] Description:FROM GI GI WILL CHARGE FOR THIS documented as of this encounter Results Not on filedocumented in this encounter Visit Diagnoses Diagnosis Gastritis, presence of bleeding unspecified, unspecified chronicity, unspecified gastritis type - Primary Acute on chronic pancreatitis (HCC) documented in this encounter Additional Health Concerns Infection Noted Time Resolved Time MRSA - Colonization 11/16/2018 10:13 AM EDT documented as of this encounter Insurance Payer Benefit Plan / Subscriber ID Effective Dates Phone Address Type Group MEDICARE MEDICARE PART A xxxxxxxxxxx 1998-Present Medicare & B [employer]UE xxxxxxxxxxxx 2018-Present [employer] PPO MEDICAID [facility] xxxxxxxx 2016-Present Medicaid [place] Guarantor Name Account Type Relation to Date of Phone Billing Patient Address Magdaleno Urbina Personal/Family 1960 [address] (Home) [place], [place] [phone] [id number] (Work) documented as of this encounter Advance Directives Code Status Date Activated Date Inactivated Comments Full Code 11/16/2018 11:32 AM Does the patient have decision No MOTHER consents making capacity? Order was discussed with: Unable to determine at this time I discussed all options and Full Code patient/surrogate requested and agreed to:
--- OUTSIDE RECORDS SUMMARY | 2019-01-10 14:44 | XMS REPORT | Summary of Care ---
:1960 Author Organization [facility] Address [address] [address] Care Team Providers Name Role Phone Alexis Kirkland MD Primary Care Provider Reason for Visit Auth/Cert Status Reason Specialty Diagnoses / Procedures Referred By Referred To Contact Contact Procedures NV ESOPHAGOGASTRODUODENOSCOPY TRANSORAL DIAGNOSTIC NV EGD TRANSORAL BIOPSY SINGLE/MULTIPLE NV EGD INTRMURAL NEEDLE ASPIR/BIOP ALTERED ANATOMY NV EDG US EXAM SURGICAL ALTER STOM DUODENUM/JEJUNUM NV ERCP DX COLLECTION SPECIMEN BRUSHING/WASHING NV ERCP W/BIOPSY SINGLE/MULTIPLE NV ERCP REMOVE CALCULI/DEBRIS BILIARY/PANCREAS DUCT Encounter Details Date Type Department Care Team Description 11/30/2018 Hospital Encounter [facility] Monique Aguillon Short [place] [address] [place] [id number] [address] [phone] [address] [place] [address] Allergies No Known Allergiesdocumented as of this encounter (statuses as of 12/01/2018) Medications Medication Sig Dispensed Refills Start Date [...] wax build up). Use as directed by oven roaster. lamotrigine Take 100 mg by 0 Active [...] (LUBRIFRESH P.M. OP) metoclopramide TAKE 1 TABLET BY 120 Tab 4 11/23/2018 Active (REGLAN) 10 MG Oral MOUTH 4 TIMES Tab DAILY.(GERD) documented as of this encounter (statuses as of 12/01/2018) Active Problems Problem Noted Date Gastritis 11/24/2018 Acute on chronic pancreatitis 11/24/2018 Other chronic pancreatitis 11/16/2018 Recurrent aspiration pneumonia 07/13/2018 Streptococcus bovis infection 03/20/2016 History of dysphagia 03/20/2016 Regurgitation and rechewing 12/07/2012 Other specified hypothyroidism 01/22/2012 Seizure disorder 10/08/2011 Overview: Neurology [facility] [address] [place] [phone] Chronic constipation 10/08/2011 Profound intellectual disability 10/08/2011 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 GERD (gastroesophageal reflux disease) 10/08/2011 documented as of this encounter (statuses as of 12/01/2018) Immunizations Name Administration Dates Next Due Influenza [...] Sign Reading Time Taken Comments Blood Pressure 108/58 11/30/2018 12:00 PM EDT Pulse 73 11/30/2018 12:00 PM EDT Temperature 36.2 11/30/2018 12:00 PM EDT C (97.2 F) Respiratory Rate 15 11/30/2018 12:00 PM EDT Oxygen Saturation 93% 11/30/2018 12:00 PM EDT Inhaled Oxygen Concentration - - Weight 49 kg (108 lb) 11/30/2018 8:39 AM EDT Height 160 cm (5' 3") 11/30/2018 8:39 AM EDT Body Mass Index 19.13 11/30/2018 8:39 AM EDT documented in this encounter Discharge Summaries Monique Aguillon MD - 11/30/2018 10:35 AM EDTGUTHRIE SP/OP DISCHARGE NOTE [facility] [address] [place] [address] Patient: Magdaleno Urbina Procedure Date: 11/30/2018 Principle Diagnosis: chronic pancreatitis Associated Condition(s): Same as Pre-op Procedure: EGD; endoscopic ultrasound (EUS). Mental Status: Unchanged from preoperative condition; alert and oriented unless otherwise indicated. Condition: Stable, unless otherwise indicated. Diet: Resume routine diet as instructed unless otherwise indicated. Activity: ad violetta Length of disability: Not applicable Suture Removal: Not applicable Wound Care: Not applicable Medications: See Med Rec Other Comments: See printed reports from [facility] for additional information. Author: Monique Aguillon MD Date: 11/30/2018 documented in this encounter Plan of Treatment Date Type Specialty Care Team Description 12/06/2018 Office Visit Gastroenterology Ange Rider, POUND KEEPER [address] [place] [address] [phone] Name Type Priority Associated Diagnoses Order Schedule EUS Diagnostic/Surgical Routine TOMORROW - GENERAL USE Procedures for 1 Occurrences starting 11/30/2018 until 11/30/2018 Health Maintenance Due Date Last Done Comments [...] of this encounter Implants Implanted Type Area Protective Service Specialist Device Shelf Model / Identifier Expiration Serial / Date Lot Resolution 360 Clip N/A: CHANDLER [id number] / Implanted: Qty: 1 on 11/16/2018 by Monique Aguillon MD at [facility] [employer] / [id number] Description:FROM GI GI WILL CHARGE FOR THIS Resolution 360 N/A: Stomach CHANLDER [employer] [id number] / Implanted: Qty: 1 on 11/16/2018 by Monique Aguillon MD at [facility] / [id number] Description:FROM GI GI WILL CHARGE FOR THIS documented as of this encounter Procedures Procedure Name Priority Date/Time Associated Comments Diagnosis SIGN PERMIT 11/30/2018 12:00 PM EDT UPPER GI ENDOSCOPY Routine 11/30/2018 9:49 Results for REPORT AM EDT this procedure are in the results section. ENDOSCOPY UPPER GI Planned Trip to 11/30/2018 9:47 OR AM EDT ENDOSCOPIC ULTRASOUND Planned Trip to 11/30/2018 9:47 OR AM EDT EUS Routine 11/30/2018 9:44 Results for AM EDT this procedure are in the results section. US TRANSESOPHAGEAL Routine 11/30/2018 8:13 Results for ENDOSCOPIC AM EDT this procedure are in the results section. documented in this encounter Results UPPER GI ENDOSCOPY REPORT (11/30/2018 9:49 AM EDT) Upper GI endoscopy [facility]ATION __ Patient Name: Magdaleno Urbina Procedure Date: 11/30/2018 9:49 AM Date of : 1960 Admit Type: Outpatient Age: 58 Room: OR Gender: Male Note Status: Finalized Attending MD: MONIQUE AGUILLON MD Instrument Name: [id number] __ Procedure: Upper GI endoscopy Indications: Epigastric abdominal pain Providers: MONIQUE AGUILLON MD, KIARA BELTRE MD, Rissa Perea, RN (Nurse), Amelia Oneill, RN (Nurse), Mayra Olivares, RN (Nurse) Referring MD: ANGE RIDER NP (Referring MD) Medicines: General Anesthesia [...] to the third part of duodenum. COMMENT: SIGNIFICANT GASTRITIS. OTHERWISE UNREMARKABLE. The upper GI endoscopy was accomplished without difficulty. The patient tolerated the procedure well. Findings: The esophagus was normal. An endoclip was found in the gastric body. Patchy moderate inflammation characterized by congestion (edema), erosions, erythema, friability and granularity was found in the gastric body. The examined duodenum was normal. Impression: - Normal esophagus. - An endoclip was found in the stomach. - Chronic gastritis. - Normal examined duodenum. - No specimens collected. Recommendation: - Discharge patient to home. - Patient has a contact number available for emergencies. The signs and symptoms of potential delayed complications were discussed with the patient. Return to normal activities tomorrow. Written discharge instructions were provided to the patient. - Resume previous diet. - Continue present medications. Procedure Code(s): --- Professional --- 22834, Esophagogastroduodenoscopy, flexible, transoral; diagnostic, including collection of specimen(s) by brushing or washing, when performed (separate procedure) Diagnosis Code(s): --- Professional --- T18.2XXA, Foreign body in stomach, initial encounter K29.50, Unspecified chronic gastritis without bleeding R10.13, Epigastric pain CPT copyright 2017 [employer]. All rights reserved. The codes documented in this report are preliminary and upon underwater photographer review may be revised to meet current compliance requirements. Attending Participation: I personally performed the entire procedure. MONIQUE AGUILLON MD 11/30/2018 10:21:35 AM This report has been signed electronically. Number of Addenda: 0 Note Initiated On: 11/30/2018 9:49 AM CC Letter to: ALEXIS KIRKLAND MD (CC) Specimen Performing Organization Address City/State/Zipcode Phone Number [facility] EUS (11/30/2018 9:44 AM EDT) [facility]OVATION __ Patient Name: Magdaleno Urbina Procedure Date: 11/30/2018 9:44 AM Date of : 1960 Admit Type: Outpatient Age: 58 Room: OR Gender: Male Note Status: Finalized Attending MD: MONIQUE AGUILLON MD Instrument Name: [id number] 160-AL5 EUS RADIAL __ Procedure: Upper EUS Indications: Suspected chronic pancreatitis Providers: MONIQUE AGUILLON MD, Amelia Oneill RN (Nurse), Mayra Olivares, DANIEL (Nurse), Rissa Perea, DANIEL (Nurse) Referring MD: ANGE RIDER NP (Referring MD) Medicines: General Anesthesia [...] procedure was verified in the procedure room. After obtaining informed consent, the endoscope was passed under direct vision. Throughout the procedure, the patient's blood pressure, pulse, and oxygen saturations were monitored continuously. The Endosonoscope was introduced through the mouth, and advanced to the third part of duodenum. The upper EUS was accomplished without difficulty. The patient tolerated the procedure well. COMMENT: AGAIN, HIGHLY ABNORMAL; APPEARING MUCOSA WITH EUS FINDINGS SUGGESTIVE OF CHRONIC PANCREATITIS. NO DEFINITIVE LESIONS. NO INTERVENTION ADVISED. Findings: ENDOSONOGRAPHIC FINDING: : There was no sign of significant endosonographic abnormality in the ampulla. No masses, no cysts, no calcifications and no wall thickening were identified. There was no sign of significant endosonographic abnormality in the common bile duct. The maximum diameter of the duct was 6 mm. No calcifications, no stones, no biliary sludge, ducts of normal caliber and ducts with regular contour were identified. Endosonographic imaging of the pancreas showed sonographic changes indicative of moderate chronic pancreatitis in the entire pancreas. The parenchyma had calcifications, diffuse echogenicity, hyperechoic strands, cysts, hyperechoic foci with shadowing, hyperechoic foci without shadowing, cysts and hyperechoic strands. The pancreatic duct had a tortuous/ectatic appearance. The pancreatic duct measured up to 4 mm in diameter. The region of the celiac plexus and celiac ganglia was visualized and showed no sign of significant endosonographic abnormality. The vascular anatomy of the region was normal. Impression: - There was no sign of significant pathology in the ampulla. - There was no sign of significant pathology in the common bile duct. - Endosonographic imaging of the pancreas showed sonographic changes consistent with moderate chronic pancreatitis. - No specimens collected. Recommendation: - Discharge patient to home when stable - Continue present medications unless instructed otherwise - Follow-up with the referring practitioner - Resume typical diet - Rest today - Contact your doctor or come to the emergency department if you experience: - worsening abdominal pain - fever greater than 101.5 degrees - persistent nausea, vomiting - any blood in stool or vomiting of blood - chills, sweats, or other symptoms that persist Procedure Code(s): --- Professional --- 76362, Esophagogastroduodenoscopy, flexible, transoral; with endoscopic ultrasound examination limited to the esophagus, stomach or duodenum, and adjacent structures Diagnosis Code(s): --- Professional --- R93.3, Abnormal findings on diagnostic imaging of other parts of digestive tract CPT copyright 2017 [employer]. All rights reserved. The codes documented in this report are preliminary and upon underwater photographer review may be revised to meet current compliance requirements. Attending Participation: I personally performed the entire procedure. MONIQUE AGUILLON MD 11/30/2018 10:34:16 AM This report has been signed electronically. Number of Addenda: 0 Note Initiated On: 11/30/2018 9:44 AM CC Letter to: ALEXIS KIRKLAND MD (CC) Specimen Performing Organization Address City/State/Zipcode Phone Number [facility] TRANSES[facility]OSCOPIC (11/30/2018 8:13 AM EDT) Specimen Narrative Performed At Please see performing physicians notes for results of this exam. [facility] POCT Performing Organization Address City/State/Zipcode Phone Number [facility] [address]CT [address] [address] documented in this encounter Administered Medications Medication Order MAR Action Action Date Dose Rate Site FentaNYL (PF) (SUBLIMAZE) injection (PF) 25 mcg 25 mcg, Intravenous Push, PRU Q5MIN PRN, Starting Thu11/30/18 at 1044, Until Thu11/30/18 at 1432, Mild Pain (pain scale 1-3) - IV - 1st line - if immediate effect required or patient cannot tolerate PO, 4 Recovery FentaNYL (PF) (SUBLIMAZE) injection (PF) 50 mcg 50 mcg, Intravenous Push, PRU Q5MIN PRN, Starting Thu11/30/18 at 1044, Until Thu11/30/18 at 1432, Moderate Pain (pain scale 4-6) - IV - 1st line - if immediate effect required or patient cannot tolerate PO, Severe Pain (pain scale 7-10) - IV - 1st line - if immediate effect required or patient cannot tolerate PO, 4 Recovery haloperidol (HALDOL) injection 0.65 mg 0.65 mg, Intravenous Push, PRU X1 PRN, 1 dose, Starting Thu11/30/18 at 1044, Until Thu11/30/18 at 1432, Nausea/Vomiting - IV - 3rd line - if immediate effect required or patient cannot tolerate PO and no relief 1 hour after administration of 2nd line agent, 4 Recovery HYDROmorphone (DILAUDID) syringe 0.3 mg 0.3 mg, Intravenous Push, PRU Q5MIN PRN, Starting Thu11/30/18 at 1044, Until Thu11/30/18 at 1432, Mild Pain (pain scale 1-3) IV - 2nd line - if immediate effect required or cannot tolerate PO & still had mild pain 4 hrs after admin of 1st line agent or patient did not tolerate 1st line agent, 4 Recovery lactated ringers IV Intravenous, at 100 mL/hr, PRU CONTINUOUS, Starting Thu11/30/18 at 1050, Until Thu11/30/18 at 1432, 4 Recovery meperidine (DEMEROL) syringe 25 mg 25 mg, Intravenous Push, PRU Q5MIN PRN, 2 doses, Starting Thu11/30/18 at 1044, Until Thu11/30/18 at 1432, Shivering/Chills/Rigors, 4 Recovery midazolam (VERSED) injection 0.5 mg 0.5 mg, Intravenous Push, PRU Q5MIN PRN, Starting Thu11/30/18 at 1044, Until Thu11/30/18 at 1432, Anxiety - IV - 1st line - if immediate effect required or patient cannot tolerate PO, 4 Recovery ondansetron (ZOFRAN) injection 4 mg 4 mg, Intravenous Push, PRU X1 PRN, 1 dose, Starting Thu11/30/18 at 1044, Until Thu11/30/18 at 1432, Nausea/Vomiting - IV - 1st line - If immediate effect required or patient cannot tolerate PO, 4 Recovery prochlorperazine (COMPAZINE) injection 2.5 mg 2.5 mg, Intravenous Push, PRU PRN, 2 doses, Starting Thu11/30/18 at 1044, Until Thu11/30/18 at 1432, Nausea/Vomiting - IV - 2nd line - if immediate effect required or patient cannot tolerate PO and no relief 1 hours after administration of 1st line agent, 4 Recovery documented in this encounter Additional Health Concerns Infection Noted Time Resolved Time MRSA - Colonization 11/16/2018 10:13 AM EDT documented as of this encounter Insurance Payer Benefit Plan / Subscriber ID Effective Dates Phone Address Type Group MEDICARE MEDICARE PART A xxxxxxxxxxx 1998-Present Medicare & B [email or web address] BLUE xxxxxxxxxxxx 2018-Present [employer] PPO MEDICAID [facility] xxxxxxxx 2016-Present Medicaid [place] MEDICA[place] Guarantor Name Account Type Relation to Date of Phone Billing Patient Address Magdaleno Urbina Personal/Family 1960 [address] (Home) [place], [place] [phone] [id number] (Work) documented as of this encounter Advance Directives Code Status Date Activated Date Inactivated Comments Full Code 11/16/2018 11:32 AM 11/30/2018 7:27 AM Does the patient have decision No MOTHER consents making capacity? Order was discussed with: Unable to determine at this time I discussed all options and Full Code patient/surrogate requested and agreed to:
--- NOTE | 2019-01-10 15:44 | ED ---
Altered Mental Status - HPI Summary HPI Summary: 58 yr male with MR, and in a wheelchair presents here with recent pneumonia diagnosis. Per the aid with the patient from the prison the patient has decreased LOC compared to his baseline. He is non verbal. Further history not obtainable on patient due to AMS. - History Of Current Complaint Chief Complaint: UCGI Stated Complaint: CONSTIPATION Time Seen by Provider: 01/10/19 15:32 - Allergies/Home Medications Allergies/Adverse Reactions: Allergies Allergy/AdvReac Type Severity Reaction Status Date / Time No Known Allergies Allergy Verified 01/10/19 15:35 PMH/Surg Hx/FS Hx/Imm Hx Endocrine/Hematology History: Reports: Hx Thyroid Disease - Hypothyroidism Denies: Hx Diabetes, Hx Systemic Lupus Erythematosus Cardiovascular History: Denies: Hx Congestive Heart Failure, Hx Hypertension GI History: Reports: Hx Gastroesophageal Reflux Disease, Other GI Disorders - anorexia, dehydration History: Reports: Other Problems/Disorders - hx frequent straight caths Denies: Hx Dialysis, Hx Renal Disease Musculoskeletal History: Reports: Other Musculoskeletal History - contracture of the legs Denies: Hx Rheumatoid Arthritis Sensory History: Denies: Hx Contacts or Glasses, Hx Hearing Aid Opthamlomology History: Denies: Hx Contacts or Glasses Neurological History: Reports: Hx Developmental Delay, Hx Seizures - Cancer History Hx Chemotherapy: No - Surgical History Surgery Procedure, Year, and Place: colon resection for a SBO Infectious Disease History: No Infectious Disease History: Denies: Hx Clostridium Difficile, Hx Hepatitis, Hx Human Immunodeficiency Virus (HIV), Hx of Known/Suspected MRSA, Hx Shingles, Hx Tuberculosis, Hx Known/ Suspected VRE, Hx Known/Suspected VRSA, History Other Infectious Disease, Traveled Outside the [place] in Last 30 Days - Family History Known Family History: Negative: Hypertension, Diabetes - Social History Occupation: Disabled Lives: Long Term Alcohol Use: None Hx Substance Use: No Substance Use Type: Reports: None Hx Tobacco Use: No Smoking Status (MU): Never Smoked Tobacco Review of Systems - ROS Summary Review of Systems Summary: ROS NOT OBTAINABLE DUE TO NON VERBAL AMS Constitutional: Negative All Other Systems Reviewed And Are Negative: Yes Physical Exam Triage Information Reviewed: Yes Vital Signs On Initial Exam: Initial Vitals Temp Pulse Resp BP Pulse Ox 98.8 F 108 20 118/67 93 01/10/19 15:19 01/10/19 15:19 01/10/19 15:19 01/10/19 15:19 01/10/19 15:19 Vital Signs Reviewed: Yes Completion Of Physical Exam Limited Due To: Altered Mental Status Skin: Positive: Warm Head/Face: Positive: Normal Head/Face Inspection ENT: Positive: Other - dry membranes Neck: Positive: Nontender Respiratory/Lung Sounds: Positive: Clear to Auscultation, Breath Sounds Present Cardiovascular: Positive: RRR. Negative: Murmur, Rub Abdomen Description: Positive: Nontender. Negative: Distended Musculoskeletal: Positive: Strength/ROM Intact Neurological: Positive: Other - Decreased LOC and seems sleepy. Diagnostics - Vital Signs Vital Signs Temp Pulse Resp BP Pulse Ox 01/10/19 15:19 98.8 F 108 20 118/67 93 - Laboratory Lab Statement: Any lab studies that have been ordered have been reviewed, and results considered in the medical decision making process. Altered Mental Statu Course/Dx - Course Course Of Treatment: 58 yr old with AMS, MR and recent pneumonia. To the ER for further work up. Discussed with attending at [facility] ER for transfer. - Diagnoses Provider Diagnoses: Altered mental status Discharge ED - Sign-Out/Discharge Documenting (check all that apply): Patient Departure All imaging exams completed and their final reports reviewed: No Studies - Discharge Plan Condition: Fair Disposition: TRANS HIGHER LVL OF CARE FAC Referrals: Vic Kirkland MD [Primary Care Provider] - - Billing Disposition and Condition Condition: FAIR Disposition: Trans Higher Lvl of Care Fac
[2019-01-10 16:03] VITALS: BP 115/68
== END 2019-01-10 15:50 | disposition short-term general hospital (02) ==
LOC: UCCORT 14:28
DX: R41.82 Altered mental status, unspecified (principal); J18.9 Pneumonia, unspecified organism
CPT/HCPCS: 99213; G0463